=== PATIENT | female | born 1930 | race African-American/Black ===

== ENCOUNTER 2019-09-23 14:17 | Inpatient (IN) | payer MEDICARE, OTHER ==
[~2019-09-23] VITALS: Ht 154.9 cm; Wt 67.6 kg
--- NOTE | 2019-09-23 14:26 | Emergency Room Report ---
History of Present Illness General Chief Complaint: Dyspnea/Respdistress Source: Medical Record, EMS Present Illness HPI Disclaimer: Please note that this report is being documented using DRAGON technology. This can lead to erroneous entry secondary to incorrect interpretation by the dictating instrument. HPI: 89-year-old female history of dementia, schizophrenia, non-oxygen dependent COPD, anxiety disorder presents for evaluation of decreased oral intake and hypoxia. Patient was found saturating in the high 80%s this morning which improved after application of 2 L nasal cannula. She is currently denying cough but has significant dementia and is a poor historian overall. EMS also notes along with accompanying paperwork that the patient has not been eating or drinking much over the past 2 days. No reported fevers. She comes from a snf facility. Cannot obtain any other information from patient at this time. She is full code according to transfer paperwork. PMH: Anxiety disorder, schizophrenia, dementia, COPD PSH: Reviewed Allergies: None reported in paperwork Social Hx: None reported in paperwork Allergies: Coded Allergies: No Known Allergies (Unverified , 09/23/19) COVID-19 Screening Contact w/high risk pt: Yes Recent Travel to affected area: No Experienced COVID-19 symptoms?: Yes COVID-19 symptoms experienced: Shortness of Breath COVID-19 Testing performed COAT JOINER: No Review of Systems All Other Systems: limited - Dementia Physical Exam General: Awake, confused, somnolent but arousable, no acute distress HEENT: NC/AT. EOMI. Cardiovascular: RRR. S1 and S2 normal. No murmur appreciated Resp: Normal work of breathing. No cough, wheezing or crackles appreciated Abdomen: Abdomen is soft, nondistended. Nontender Skin: Intact. No abrasions, laceration or rash over the exposed skin MSK: Normal tone, decreased bulk diffusely. Moving all extremities. No obvious deformity. Neuro: Awake but somnolent, arousable to voice, confused conversation Medical Decision Making Diagnostic Impression: Primary Impression: Suspected 2019 novel coronavirus infection Additional Impression: Sepsis ER Course Labs show significant elevated white count at 22.8 with a neutrophil predominance and a lymphopenia. Blood gas does not show hypoxia or hypercapnia. Electrolytes within normal limits though creatinine acutely elevated 1.8 with a BUN of 93. Lactate within normal limits. Slight elevation in BN peptide however troponin is within normal limits. Urine does not show evidence of acute urinary tract infection. Patient be kept in isolation over concern of coronavirus 19. Chest x-ray does not show evidence of acute infiltrate. No further hypoxia while in the ED. patient was initially tachycardic though improving with IV fluids. Received antibiotics. Patient will be admitted to her PMD, Dr. Carrillo Laboratory Tests Test 09/23/19 15:00 09/23/19 15:10 09/23/19 15:15 White Blood Count 22.8 K/UL (4.8-10.8) *H Red Blood Count 3.79 M/UL (4.20-5.40) L Hemoglobin 11.0 G/DL (12.0-16.0) L Hematocrit 34.6 % (37.0-47.0) L Mean Corpuscular Volume 91 FL (80-99) Mean Corpuscular Hemoglobin 28.9 PG (27.0-31.0) Mean Corpuscular Hemoglobin Concent 31.7 G/DL (32.0-36.0) L Red Cell Distribution Width 14.8 % (11.6-14.8) Platelet Count 296 K/UL (150-450) Mean Platelet Volume 7.2 FL (6.5-10.1) Neutrophils (%) (Auto) % (45.0-75.0) Lymphocytes (%) (Auto) % (20.0-45.0) Monocytes (%) (Auto) % (1.0-10.0) Eosinophils (%) (Auto) % (0.0-3.0) Basophils (%) (Auto) % (0.0-2.0) Differential Total Cells Counted 100 Neutrophils % (Manual) 85 % (45-75) H Lymphocytes % (Manual) 4 % (20-45) L Monocytes % (Manual) 6 % (1-10) Eosinophils % (Manual) 1 % (0-3) Basophils % (Manual) 0 % (0-2) Band Neutrophils 4 % (0-8) Nucleated Red Blood Cells 1 /100 WBC Platelet Estimate Adequate Platelet Morphology Normal Anisocytosis 1+ Sodium Level 144 MMOL/L (136-145) Potassium Level 4.4 MMOL/L (3.5-5.1) Chloride Level 104 MMOL/L (98-107) Carbon Dioxide Level 30 MMOL/L (21-32) Anion Gap 11 mmol/L (5-15) Blood Urea Nitrogen 93 mg/dL (7-18) H Creatinine 1.8 MG/DL (0.55-1.30) H Estimated Glomerular Filtration Rate 32.2 mL/min (>60) Glucose Level 225 MG/DL (74-106) H Lactic Acid Level 1.40 mmol/L (0.4-2.0) Calcium Level 9.7 MG/DL (8.5-10.1) Phosphorus Level 4.0 MG/DL (2.5-4.9) Magnesium Level 2.7 MG/DL (1.8-2.4) H Total Bilirubin 0.2 MG/DL (0.2-1.0) Aspartate Amino Transferase (AST) 38 U/L (15-37) H Alanine Aminotransferase (ALT) 29 U/L (12-78) Alkaline Phosphatase 91 U/L (46-116) Total Creatine Kinase 630 U/L (26-308) H Creatine Kinase MB 3.1 NG/ML (0.0-3.6) Creatine Kinase MB Relative Index 0.4 Troponin I 0.009 ng/mL (0.000-0.056) Pro-B-Type Natriuretic Peptide 439 pg/mL (0-125) H Total Protein 8.3 G/DL (6.4-8.2) H Albumin 2.1 G/DL (3.4-5.0) L Globulin 6.2 g/dL Albumin/Globulin Ratio 0.3 (1.0-2.7) L Lipase 32 U/L (73-393) L Urine Color Yellow Urine Appearance Clear Urine pH 5 (4.5-8.0) Urine Specific [place] 1.015 (1.005-1.035) Urine Protein 1+ (NEGATIVE) H Urine Glucose (UA) Negative (NEGATIVE) Urine Ketones Negative (NEGATIVE) Urine Blood 1+ (NEGATIVE) H Urine Nitrite Negative (NEGATIVE) Urine Bilirubin Negative (NEGATIVE) Urine Urobilinogen Normal MG/DL (0.0-1.0) Urine Leukocyte Esterase Negative (NEGATIVE) Urine RBC 2-4 /HPF (0 - 2) H Urine WBC 0-2 /HPF (0 - 2) Urine Squamous Epithelial Cells Few /LPF (NONE/OCC) Urine Bacteria Few /HPF (NONE) Arterial Blood pH 7.475 (7.350-7.450) Arterial Blood Partial Pressure CO2 39.4 mmHg (35.0-45.0) Arterial Blood Partial Pressure O2 105.8 mmHg (75.0-100.0) H Arterial Blood HCO3 28.4 mmol/L (22.0-26.0) H Arterial Blood Oxygen Saturation 97.7 % (95-100) Arterial Blood Base Excess 4.5 (-2-2) H Teo Test Positive EKG Diagnostic Results EKG Time: 15:27 Rate: tachycardiac Other Impression Sinus tachycardia, normal axis, normal intervals, T wave inversions in the lateral leads, no acute ST segment changes. Rhythm Strip Diag. Results Rhythm Strip Time: 15:27 EP Interpretation: yes Rate: 110s Rhythm: no ectopy Chest X-Ray Diagnostic Results Chest X-Ray Diagnostic Results : Chest X-Ray Ordered: Yes # of Views/Limited/Complete: 1 View Indication: Chest Pain EP Interpretation: Yes Interpretation: no consolidation, no effusion, no pneumothorax, no acute cardiopulmonary disease Impression: No acute disease Electronically Signed by: Electronically signed by Dr. David He Disposition: ADMITTED INPATIENT Condition: Serious David He MD September 23, 2019 14:26
[2019-09-23 14:27] VITALS: BP 110/62
[2019-09-23] MEDS ORDERED: TRAZODONE HCL100 MG ORAL (14:32)
[2019-09-23] MEDS ORDERED: SYNTHROID25 MCG ORAL (14:32)
[2019-09-23] MEDS ORDERED: HYDROCHLOROTH12.5 MG ORAL (14:32)
[2019-09-23] MEDS ORDERED: SEROQUEL100 MG ORAL (14:32)
[2019-09-23] MEDS ORDERED: RISPERDAL1 MG PO ×2 (14:32→18:52)
[2019-09-23] MEDS ORDERED: DEPAKOTE SPRIN125 MG PO ×2 (14:32)
[2019-09-23] MEDS ORDERED: MULTIVITAMINS1 EAC2 ORAL (14:32)
[2019-09-23] MEDS ORDERED: VITAMIN D32400 UNIT/ PO (14:32)
[2019-09-23] MEDS ORDERED: MELATONIN3 M3 PO (14:32)
[2019-09-23 15:45] LABS: HEMATOCRIT 34.6 % (37.0-47.0); MEAN CORPUSCULAR VOLUME 91 FL (80-99); PLATELET COUNT 296 K/UL (150-450); RED BLOOD COUNT 3.79 M/UL (4.20-5.40); RED CELL DISTRIBUTION WIDTH 14.8 % (11.6-14.8)
[2019-09-23 15:47] LABS: APPEARANCE,URINE CLEAR; BILIRUBIN, URINE NEGATIVE (NEGATIVE); COLOR,URINE YELLOW; GLUCOSE, URINE (UA) NEGATIVE (NEGATIVE); KETONES,URINE NEGATIVE (NEGATIVE); LEUKOCYTE ESTERASE ,URINE NEGATIVE (NEGATIVE); NITRITE,URINE NEGATIVE (NEGATIVE); PH,URINE 5 (4.5-8.0); PROTEIN,URINE 1+ (NEGATIVE); UROBILINOGEN,URINE NORMAL MG/DL (0.0-1.0)
[2019-09-23 15:49] LABS: WHITE BLOOD COUNT 22.8 K/UL (4.8-10.8)
--- NOTE | 2019-09-23 15:56 | Diagnostic Imaging Report ---
Indication: Shortness of breath Technique: XRAY Chest 1v Comparison: None Findings: Heart size and mediastinal contours within normal limits for AP technique. Atherosclerotic calcifications noted in the aorta. Subtle generalized interstitial prominence is nonspecific and may be chronic. There is no focal airspace consolidation. No pleural effusion, pneumothorax or radiographic evidence of pulmonary edema. There is osteopenia, scoliosis and multilevel degenerative changes of the spine. No radiographically appreciable acute osseous abnormality. Impression: No radiographic evidence of acute cardiopulmonary disease.
[2019-09-23 16:00] VITALS: BP 133/86
[2019-09-23] MEDS ORDERED: Piperacillin/Tazobactam 3.375 GM in NS 110 ML IVPB ONE (16:00)
[2019-09-23] MEDS ORDERED: Vancomycin 1 GM in NS 275 ML IVPB ONE (16:00)
[2019-09-23 16:02] LABS: ANION GAP 11 mmol/L (5-15); BLOOD UREA NITROGEN 93 mg/dL (7-18); CALCIUM 9.7 MG/DL (8.5-10.1); CARBON DIOXIDE 30 MMOL/L (21-32); CHLORIDE 104 MMOL/L (98-107); CREATININE 1.8 MG/DL (0.55-1.30); POTASSIUM 4.4 MMOL/L (3.5-5.1); SODIUM 144 MMOL/L (136-145)
[2019-09-23 16:30] LABS: ALANINE AMINOTRANSFERASE 29 U/L (12-78); ALBUMIN 2.1 G/DL (3.4-5.0); ALBUMIN/GLOBULIN RATIO 0.3 (1.0-2.7); ALKALINE PHOSPHATASE 91 U/L (46-116); ASPARTATE AMINO TRANSFERASE 38 U/L (15-37); BILIRUBIN,TOTAL 0.2 MG/DL (0.2-1.0); CKMB 3.1 NG/ML (0.0-3.6); CREATINE KINASE 630 U/L (26-308)
[2019-09-23 17:30] VITALS: BP 108/69
[2019-09-23] MEDS ORDERED: MORPHINE 22 MG/1 ML SL (18:52)
[2019-09-23] MEDS ORDERED: COLACE100 MG ORAL (18:52)
[2019-09-23] MEDS ORDERED: ZOFRAN4 M3 ORAL (18:52)
[2019-09-23 20:00] VITALS: BP 113/59
[2019-09-24] VITALS: BP 141/80
--- NOTE | 2019-09-24 02:29 | History and Physical Report ---
DATE OF ADMISSION: 09/23/2019 HISTORY OF PRESENT ILLNESS: This is an 89-year-old female who was living at a senior living, came to the emergency room, was found hypoxic, short of breath, and generalized weakness, will be admitted. The patient was noted, her white counts are above 21,000, nonverbal, severely dehydrated and bedbound, although opening her eyes and critically sick. PAST MEDICAL HISTORY: Significant for dementia, depression, degenerative arthritis, and hypertension. MEDICATIONS: See the list. ALLERGIES: NKA. FAMILY HISTORY: Noncontributory. SOCIAL HISTORY: The patient lives at senior living, mostly bedbound. REVIEW OF SYSTEMS: Cannot be obtained. PHYSICAL EXAMINATION: GENERAL: This is an elderly female who is cachectic and dehydrated . VITAL SIGNS: Blood pressure is 106/70, pulse 100, respirations 18, and temperature 99. SKIN: Dehydrated. HEENT: eyes are open, looks pale. CHEST: Bilateral decreased breath sounds. CARDIOVASCULAR: Regular rhythm. No gallop. No murmur. ABDOMEN: Soft. Positive bowel sounds. Nontender. EXTREMITIES: Edema. GENITOURINARY: Deferred. LABORATORY DATA: White count 21,000. ASSESSMENT: 1. Septic shock. 2. Aspiration pneumonia. 3. Rule out COVID. 4. Dehydration. 5. Failure to thrive. 6. Dementia. PLAN: We will admit on telemetry bed. I will start IV fluids, IV antibiotics, bronchodilator treatment. Continue in isolation. Consider Pulmonary consult and also consider ID consult. Sher Carrillo M.D. DR: Matthew JOB#: [id number] CC:
[2019-09-24 04:00] VITALS: BP 138/88
[2019-09-24] MEDS: Piperacillin/Tazobactam 3.375 GM in NS 110 ML IVPB SCH ×2 (04:19→16:57)
[2019-09-24 08:00] VITALS: BP 135/75
[2019-09-24] MEDS ORDERED: Vancomycin 1.25gm/NS Premix q24h IVPB SCH (10:00)
[2019-09-24 12:00] VITALS: BP 129/65
--- NOTE | 2019-09-24 12:54 | Consultation ---
History of Present Illness General Date patient seen: September 24, 2019 Chief Complaint: Dyspnea/Respdistress Present Illness HPI 89-year-old female history of dementia, schizophrenia, non-oxygen dependent COPD , anxiety disorder presents for evaluation of decreased oral intake and hypoxia. Patient was found saturating in the high 80%s this morning which improved after application of 2 L nasal cannula. She is currently denying cough but has significant dementia and is a poor historian overall. EMS also notes along with accompanying paperwork that the patient has not been eating or drinking much over the past 2 days. No reported fevers. She comes from a snf facility. Cannot obtain any other information from patient at this time. She is full code according to transfer paperwork. Noted to have malnutrition, leukocytosis, abnormal labs, decubitus ulcers. surgery called to evaluate and assist with care. PMH: Anxiety disorder, schizophrenia, dementia, COPD Allergies: Coded Allergies: No Known Allergies (Unverified , 09/23/19) Medication History Scheduled Cholecalciferol (Vitamin D3) (Vitamin D3), 1,000 UNIT PO DAILY, (Reported) Divalproex Sodium (Depakote Sprinkle), 250 MG PO DAILY, (Reported) Divalproex Sodium (Depakote Sprinkle), 500 MG PO BEDTIME, (Reported) Docusate Sodium* (Colace*), 250 MG ORAL TWICE A DAY, (Reported) Hydrochlorothiazide* (Hydrochlorothiazide*), 12.5 MG ORAL DAILY, (Reported) Levothyroxine Sodium* (Synthroid*), 25 MCG ORAL DAILY, (Reported) Melatonin (Melatonin), 12 MG PO BEDTIME, (Reported) Multivitamins* (Multivitamins*), 1 TAB ORAL DAILY, (Reported) Quetiapine Fumarate* (Seroquel*), 100 MG ORAL BEDTIME, (Reported) Risperidone* (Risperdal*), 1 MG PO DAILY, (Reported) Risperidone* (Risperdal*), 1 MG PO BEDTIME, (Reported) Trazodone Hcl* (Desyrel*), 100 MG ORAL BEDTIME, (Reported) Scheduled PRN Morphine Sulfate* (Morphine Sulfate*), 1 MG SL Q4HR PRN for Severe Pain (Pain Scale 7-10), (Reported) Ondansetron* (Zofran*), 4 MG ORAL Q8HR PRN for Nausea & Vomiting, (Reported) Patient History Limited by: age, medical condition History Provided By: Medical Record, PMD Healthcare decision maker N Resuscitation status Advanced Directive on File Past Medical/Surgical History Past Medical/Surgical History: (1) Respiratory distress (2) Failure to thrive (3) Sepsis (4) Suspected 2019 novel coronavirus infection Review of Systems All Other Systems: negative except mentioned in HPI ROS Narrative cannot obtain given medical condition Physical Exam General Appearance: no apparent distress, alert Lines, tubes and drains: peripheral HEENT: anicteric, mucous membranes moist Neck: normal alignment, supple Respiratory/Chest: no respiratory distress, no accessory muscle use, decreased breath sounds Cardiovascular/Chest: normal peripheral pulses, normal rate, regular rhythm Abdomen: soft, no organomegaly, no mass, decreased bowel sounds Genitourinary/Rectal: normal rectal exam Extremities: normal range of motion, non-tender, normal inspection Skin Exam: warm/dry Neurologic: alert, disoriented Last 24 Hour Vital Signs Date Time Temp Pulse Resp B/P (MAP) Pulse Ox O2 Delivery O2 Flow Rate FiO2 09/24/19 12:00 97.3 80 16 129/65 (86) 98 80 09/24/19 09:00 Nasal Cannula 2.0 09/24/19 08:00 89 09/24/19 08:00 96.9 99 16 135/75 (95) 94 99 09/24/19 04:00 97 09/24/19 04:00 94 138/88 (105) 97 09/24/19 00:00 97.3 110 141/80 (100) 100 09/24/19 00:00 95 09/23/19 21:00 Nasal Cannula 2.0 09/23/19 20:00 94 09/23/19 20:00 97.5 104 113/59 (77) 92 09/23/19 18:53 Nasal Cannula 2.0 09/23/19 17:30 98.5 73 19 108/69 99 Nasal Cannula 2.0 09/23/19 17:30 98.5 73 19 108/69 99 Nasal Cannula 2.0 09/23/19 16:00 97.9 97 19 133/86 100 Nasal Cannula 2.0 09/23/19 14:27 106 22 Nasal Cannula 2.0 09/23/19 14:27 97.9 106 22 110/62 99 Nasal Cannula 2.0 09/23/19 14:16 97.9 106 22 110/62 (78) 99 Nasal Cannula 2.0 Intake and Output 09/23/19 09/24/19 19:00 07:00 Intake Total 2770 ml Balance 2770 ml Intake IV Total 2770 ml # Voids 1 3 # Bowel Movements 1 2 Laboratory Tests Test 09/23/19 15:00 09/23/19 15:10 09/23/19 15:15 09/24/19 07:04 White Blood Count 22.8 K/UL (4.8-10.8) *H Red Blood Count 3.79 M/UL (4.20-5.40) L Hemoglobin 11.0 G/DL (12.0-16.0) L Hematocrit 34.6 % (37.0-47.0) L Mean Corpuscular Volume 91 FL (80-99) Mean Corpuscular Hemoglobin 28.9 PG (27.0-31.0) Mean Corpuscular Hemoglobin Concent 31.7 G/DL (32.0-36.0) L Red Cell Distribution Width 14.8 % (11.6-14.8) Platelet Count 296 K/UL (150-450) Mean Platelet Volume 7.2 FL (6.5-10.1) Neutrophils (%) (Auto) % (45.0-75.0) Lymphocytes (%) (Auto) % (20.0-45.0) Monocytes (%) (Auto) % (1.0-10.0) Eosinophils (%) (Auto) % (0.0-3.0) Basophils (%) (Auto) % (0.0-2.0) Differential Total Cells Counted 100 Neutrophils % (Manual) 85 % (45-75) H Lymphocytes % (Manual) 4 % (20-45) L Monocytes % (Manual) 6 % (1-10) Eosinophils % (Manual) 1 % (0-3) Basophils % (Manual) 0 % (0-2) Band Neutrophils 4 % (0-8) Nucleated Red Blood Cells 1 /100 WBC Platelet Estimate Adequate Platelet Morphology Normal Anisocytosis 1+ Sodium Level 144 MMOL/L (136-145) Potassium Level 4.4 MMOL/L (3.5-5.1) Chloride Level 104 MMOL/L (98-107) Carbon Dioxide Level 30 MMOL/L (21-32) Anion Gap 11 mmol/L (5-15) Blood Urea Nitrogen 93 mg/dL (7-18) H Creatinine 1.8 MG/DL (0.55-1.30) H Estimat Glomerular Filtration Rate 32.2 mL/min (>60) Glucose Level 225 MG/DL (74-106) H Lactic Acid Level 1.40 mmol/L (0.4-2.0) Calcium Level 9.7 MG/DL (8.5-10.1) Phosphorus Level 4.0 MG/DL (2.5-4.9) Magnesium Level 2.7 MG/DL (1.8-2.4) H Total Bilirubin 0.2 MG/DL (0.2-1.0) Aspartate Amino Transf (AST/SGOT) 38 U/L (15-37) H Alanine Aminotransferase (ALT/SGPT) 29 U/L (12-78) Alkaline Phosphatase 91 U/L (46-116) Total Creatine Kinase 630 U/L (26-308) H Creatine Kinase MB 3.1 NG/ML (0.0-3.6) Creatine Kinase MB Relative Index 0.4 Troponin I 0.009 ng/mL (0.000-0.056) Pro-B-Type Natriuretic Peptide 439 pg/mL (0-125) H Total Protein 8.3 G/DL (6.4-8.2) H Albumin 2.1 G/DL (3.4-5.0) L Globulin 6.2 g/dL Albumin/Globulin Ratio 0.3 (1.0-2.7) L Lipase 32 U/L (73-393) L Urine Color Yellow Urine Appearance Clear Urine pH 5 (4.5-8.0) Urine Specific [place] 1.015 (1.005-1.035) Urine Protein 1+ (NEGATIVE) H Urine Glucose (UA) Negative (NEGATIVE) Urine Ketones Negative (NEGATIVE) Urine Blood 1+ (NEGATIVE) H Urine Nitrite Negative (NEGATIVE) Urine Bilirubin Negative (NEGATIVE) Urine Urobilinogen Normal MG/DL (0.0-1.0) Urine Leukocyte Esterase Negative (NEGATIVE) Urine RBC 2-4 /HPF (0 - 2) H Urine WBC 0-2 /HPF (0 - 2) Urine Squamous Epithelial Cells Few /LPF (NONE/OCC) Urine Bacteria Few /HPF (NONE) Arterial Blood pH 7.475 (7.350-7.450) Arterial Blood Partial Pressure CO2 39.4 mmHg (35.0-45.0) Arterial Blood Partial Pressure O2 105.8 mmHg (75.0-100.0) H Arterial Blood HCO3 28.4 mmol/L (22.0-26.0) H Arterial Blood Oxygen Saturation 97.7 % (95-100) Arterial Blood Base Excess 4.5 (-2-2) H Teo Test Positive Random Vancomycin Level 7.1 ug/mL Microbiology Date/Time Source Procedure Growth Status 09/23/19 18:00 Rectum Received Height (Feet): 5 Height (Inches): 2.00 Weight (Pounds): 120 Medications Current Medications Medications (Trade) Dose Ordered Sig/Naya Route PRN Reason Start Time Stop Time Status Last Admin Dose Admin Piperacillin Sod/ Tazobactam Sod 3.375 gm/Sodium Chloride 110 ml @ 27.5 mls/hr Q12H IVPB 09/24/19 04:00 10/01/19 03:59 09/24/19 04:19 Sodium Chloride 1,000 ml @ 100 mls/hr Q10H IV 09/23/19 21:00 09/25/19 09:00 09/24/19 06:21 Assessment/Plan Problem List: (1) Decubitus skin ulcer ICD Codes: L89.90 - Pressure ulcer of unspecified site, unspecified stage SNOMED: 034034595 (2) Sepsis Assessment & Plan: leukocytosis, abnormal labs low grade fever COVID eval necessary snf patient respiratory support nutrition Urine with UTI pending micro wounds no gross infection rx as written on abx trend labs will follow with recs ICD Codes: A41.9 - Sepsis, unspecified organism SNOMED: 05138443 (3) Suspected 2019 novel coronavirus infection ICD Codes: Z20.828 - Contact with and (suspected) exposure to other viral communicable diseases SNOMED: 656397754 (4) Respiratory distress ICD Codes: R06.03 - Acute respiratory distress SNOMED: 558227442 (5) Failure to thrive Assessment & Plan: DAILY ESTIMATED NEEDS: Needs based on Sepsis 54.5kg 25-35 kcals/kg 9368-8965 total kcals 1-2 g protein/kg 55-109 g total protein 25-30ml/kcal mL/kg 3241-8563 total fluid mLs NUTRITION DIAGNOSIS: Increased kcal and pro needs r/t sepsis and wound healing as evidenced by pt adm w/ critically elev WBC, open sacral/ buttock wound, eval pending. CURRENT DIET: NPO PO DIET RECOMMENDATIONS: Liberalized Regular diet/ texture per SHELTER SUPERVISOR ENTERAL NUTRITION RECOMMENDATIONS: Glucerna 1.5 @40ml/hr x24 hrs to provide 960ml, 1440 kcal, 79g pro, 729ml free H2O - If part of POC, rec to obtain GI access, initiate non oral TFs. - Start Glucerna 1.5 @10ml/hr for 6hrs. Advance as tolerated 10ml/hr q4-6 hrs to goal. - Flush per MD/ HOB over 30 degreed ADDITIONAL RECOMMENDATIONS: 1) With diet order: add BEAN BID. F/up with WC eval 2) Maintain calibrated bed scale wts 3) SHELTER SUPERVISOR eval for oral diet 4) monitor hydration status 5) Glucerna TID w/ meals for oral diet SNOMED: 00787926 Sundeep Howard September 24, 2019 12:54
[2019-09-24] MEDS ORDERED: DiphenhydrAMINE 50mg/ml Inj IVP PRN (13:00)
[2019-09-24 16:00] VITALS: BP 134/68
--- NOTE | 2019-09-24 17:02 | Diagnostic Imaging Report ---
EXAM: XRAY Abdomen 1v HISTORY: Reason For Exam: NGT COMPARISON: None. TECHNIQUE: Frontal view of the abdomen obtained. FINDINGS: There is a nonobstructed bowel gas pattern. There is an NG tube in the stomach. Calcific densities in the left upper quadrant may be related to old pancreatitis. There is no sign of free air. No acute abnormality noted of the visualized osseous structures. IMPRESSION: NG TUBE IN STOMACH. CALCIFICATIONS LEFT UPPER QUADRANT PERHAPS RELATED TO OLD PANCREATITIS.
--- NOTE | 2019-09-24 17:30 | Consultation ---
DATE OF CONSULTATION: 09/24/2019 INFECTIOUS DISEASES CONSULTATION CONSULTING PHYSICIAN: Mazin Skinner MD. REFERRING PHYSICIAN: Russ Carrillo MD. REASON FOR CONSULTATION: Leukocytosis. HISTORY OF PRESENTING ILLNESS: This is an 89-year-old lady with history of dementia, depression, hypertension, arthritis, who comes in from the emergency room with shortness of breath and weakness. She was found to be dehydrated and with leukocytosis and an Infectious Diseases consultation has been obtained for antibiotics. PAST MEDICAL HISTORY: 1. History of dementia. 2. Depression. 3. Hypertension. 4. DJD. SOCIAL HISTORY: Unknown. FAMILY HISTORY: Unknown. REVIEW OF SYSTEMS: Unable to obtain currently. MEDICATIONS: As an inpatient, the patient is on IV vancomycin and Zosyn. ALLERGIES: No known drug allergies. PHYSICAL EXAMINATION: VITAL SIGNS: Temperature of 96.9, T-max of 98.5, pulse of 99, respiratory rate of 16, blood pressure 135/75, O2 saturation of 94% on 2 liters of oxygen. Examination deferred due to possibility of COVID-19 LABORATORY AND DIAGNOSTIC DATA: White count 22.8, hemoglobin 11, hematocrit 34.6, MCV 91, platelet count of 296, neutrophils of 85%. Sodium 144, potassium 4.4, chloride 104, bicarb 30, BUN 93, creatinine 1.8, glucose 225, calcium 9.7. Total bilirubin 0.2. AST 38, ALT 29, alkaline phosphatase 91. CK of 630, CK-MB 3.1. Troponin 0.009. Beta natriuretic peptide 439. Total protein 8.3, albumin 2.1. Lipase of 32. UA showing 0 to 2 white cells. Chest x-ray was unremarkable. ASSESSMENT: This is an 89-year-old lady with history of hypertension, dementia, depression, who comes in with shortness of breath and was found to have leukocytosis would be concerned regardin. Pneumonia, would like to rule out COVID-19 pneumonia as a possibility. 2. Hypertension. 3. Dementia. 4. Renal failure. PLAN: 1. Continue Zosyn. 2. Discontinue IV vancomycin. 3. We will follow up cultures and adjust antibiotics accordingly. 4. Continue isolation. 5. We will follow up COVID-19. I would like to thank, Dr. Carrillo for this consultation. Mazin Skinner M.D. DR: JULIAN JOB#: [id number] CC: Russ Carrillo MD.; Fax#: [phone]
[2019-09-24 20:00] VITALS: BP 140/97
[2019-09-25] VITALS: BP 135/95
--- NOTE | 2019-09-25 | Consultation ---
DATE OF CONSULTATION: 09/24/2019 PULMONARY CONSULTATION CONSULTING PHYSICIAN: David Villanueva M.D. HISTORY OF PRESENT ILLNESS: This is an 89-year-old female with a history of schizophrenia and COPD, who was admitted to the hospital with hypoxemia. Patient has a history of severe COPD; however, is not oxygen dependent. She was found to be hypoxic and was given oxygen. Patient unable to provide any further history. She is a resident of a nursing facility and she is brought in with anorexia. PAST MEDICAL HISTORY: Anxiety, schizophrenia, dementia, COPD. SURGERIES: None. ALLERGIES: None reported. CODE STATUS: Full. SOCIAL HISTORY: assisted resident. MEDICATIONS: List of current medications includes Zosyn, IV fluids, and vancomycin. REVIEW OF SYSTEMS: Unreliable. PHYSICAL EXAMINATION: GENERAL: Reveals an elderly female. HEENT: Unremarkable. CHEST: Decreased breath sounds bilaterally with normal heart sounds. ABDOMEN: Soft. EXTREMITIES: There is no edema. VITAL SIGNS: Blood pressure is 120/60, heart rate 58, respirations 20, O2 saturation is 98% on 2 L of oxygen. X-ray chest obtained overnight shows clear lung campos bilaterally. LABORATORY DATA: Lab testing shows white count 22.8, otherwise normal CBC and BMP. Creatinine 1.8. ABG, pH 7.47, pCO2 39, pO2 105. Urinalysis shows few pus cells. IMPRESSION: 1. Marked leukocytosis. 2. Hypoxemia. 3. COPD. 4. assisted resident. 5. Schizophrenia. 6. Dementia. DISCUSSION: Admit to the hospital. Agree with empiric antibiotics. Do not suspect COVID-19; however, need to exclude. Continue current medications and care. We will follow carefully as pulmonary clinical services consultant. We will order oxygen and pulmonary hygiene. David Villanueva M.D. DR: MCKENNA JOB#: [id number] CC:
[2019-09-25] MEDS: Piperacillin/Tazobactam 3.375 GM in NS 110 ML IVPB SCH ×3 (03:02→21:29)
[2019-09-25 04:00] VITALS: BP 140/92
[2019-09-25 06:57] LABS: HEMATOCRIT 33.3 % (37.0-47.0); HEMOGLOBIN 10.6 G/DL (12.0-16.0); MEAN CORPUSCULAR VOLUME 88 FL (80-99); PLATELET COUNT 317 K/UL (150-450); RED BLOOD COUNT 3.78 M/UL (4.20-5.40); RED CELL DISTRIBUTION WIDTH 13.6 % (11.6-14.8); WHITE BLOOD COUNT 14.5 K/UL (4.8-10.8)
[2019-09-25 07:38] LABS: ALANINE AMINOTRANSFERASE 44 U/L (12-78); ALBUMIN 1.9 G/DL (3.4-5.0); ALBUMIN/GLOBULIN RATIO 0.3 (1.0-2.7); ALKALINE PHOSPHATASE 85 U/L (46-116); ANION GAP 7 mmol/L (5-15); ASPARTATE AMINO TRANSFERASE 65 U/L (15-37); BILIRUBIN,TOTAL 0.2 MG/DL (0.2-1.0); BLOOD UREA NITROGEN 51 mg/dL (7-18); CALCIUM 9.1 MG/DL (8.5-10.1); CARBON DIOXIDE 30 MMOL/L (21-32); CHLORIDE 116 MMOL/L (98-107); POTASSIUM 3.6 MMOL/L (3.5-5.1); SODIUM 153 MMOL/L (136-145)
[2019-09-25 08:00] VITALS: BP 131/85
--- NOTE | 2019-09-25 10:20 | Infectious Diseases Prog Note ---
Assessment/Plan Assessment/Plan antibiotics ; zosyn A 1. Pneumonia, would like to rule out COVID-19 pneumonia as a possibility. 2. Hypertension. 3. Dementia. 4. Renal failure improving 5. leucocytosis improving P 1. Continue Zosyn. 2. We will follow up cultures and adjust antibiotics accordingly. 3. Continue isolation. 4. We will follow up COVID-19. Subjective ROS Limited/Unobtainable: Yes Allergies: Coded Allergies: No Known Allergies (Unverified , 09/23/19) Objective Vital Signs Last 24 Hour Vital Signs Date Time Temp Pulse Resp B/P (MAP) Pulse Ox O2 Delivery O2 Flow Rate FiO2 09/25/19 09:00 Nasal Cannula 2.0 09/25/19 08:00 86 09/25/19 08:00 97.9 100 16 131/85 (100) 98 100 09/25/19 04:00 92 09/25/19 04:00 97.7 100 17 140/92 (108) 99 100 09/25/19 00:00 97.4 102 17 135/95 (108) 100 102 09/25/19 00:00 51 09/24/19 21:00 Nasal Cannula 2.0 09/24/19 20:00 97.4 102 16 140/97 (111) 98 102 09/24/19 20:00 69 09/24/19 16:00 85 09/24/19 16:00 96.6 86 18 134/68 (90) 100 86 09/24/19 12:00 54 09/24/19 12:00 97.3 80 16 129/65 (86) 98 80 Height (Feet): 5 Height (Inches): 2.00 Weight (Pounds): 124 Microbiology Date/Time Source Procedure Growth Status 09/23/19 15:00 Blood Blood Culture - Preliminary NO GROWTH AFTER 24 HOURS Resulted 09/23/19 14:30 Blood Blood Culture - Preliminary NO GROWTH AFTER 24 HOURS Resulted 09/23/19 18:00 Nasal Nares MRSA Culture - Final NO METHICILLIN RESISTANT STAPH AUREUS... Complete 09/23/19 15:00 Nasopharynx Coronavirus COVID-19 PCR ([facility]) - Final Complete 09/23/19 18:00 Rectum - Final NO CARBAPENEM-RESISTANT ENTEROBACTERI... Complete 09/23/19 18:00 Rectum VRE Culture - Final NO VANCOMYCIN RESISTANT ENTEROCOCCUS ... Complete Laboratory Tests Test 09/25/19 06:23 White Blood Count 14.5 K/UL (4.8-10.8) H Red Blood Count 3.78 M/UL (4.20-5.40) L Hemoglobin 10.6 G/DL (12.0-16.0) L Hematocrit 33.3 % (37.0-47.0) L Mean Corpuscular Volume 88 FL (80-99) Mean Corpuscular Hemoglobin 28.2 PG (27.0-31.0) Mean Corpuscular Hemoglobin Concent 32.0 G/DL (32.0-36.0) Red Cell Distribution Width 13.6 % (11.6-14.8) Platelet Count 317 K/UL (150-450) Mean Platelet Volume 5.7 FL (6.5-10.1) L Neutrophils (%) (Auto) % (45.0-75.0) Lymphocytes (%) (Auto) % (20.0-45.0) Monocytes (%) (Auto) % (1.0-10.0) Eosinophils (%) (Auto) % (0.0-3.0) Basophils (%) (Auto) % (0.0-2.0) Differential Total Cells Counted 100 Neutrophils % (Manual) 88 % (45-75) H Lymphocytes % (Manual) 7 % (20-45) L Monocytes % (Manual) 3 % (1-10) Eosinophils % (Manual) 2 % (0-3) Basophils % (Manual) 0 % (0-2) Band Neutrophils 0 % (0-8) Platelet Estimate Adequate Platelet Morphology Normal Hypochromasia 1+ Erythrocyte Sedimentation Rate 83 MM/HR (0-30) H Sodium Level 153 MMOL/L (136-145) H Potassium Level 3.6 MMOL/L (3.5-5.1) Chloride Level 116 MMOL/L (98-107) H Carbon Dioxide Level 30 MMOL/L (21-32) Anion Gap 7 mmol/L (5-15) Blood Urea Nitrogen 51 mg/dL (7-18) H Creatinine 1.0 MG/DL (0.55-1.30) Estimat Glomerular Filtration Rate > 60 mL/min (>60) Glucose Level 139 MG/DL (74-106) H Calcium Level 9.1 MG/DL (8.5-10.1) Total Bilirubin 0.2 MG/DL (0.2-1.0) Aspartate Amino Transf (AST/SGOT) 65 U/L (15-37) H Alanine Aminotransferase (ALT/SGPT) 44 U/L (12-78) Alkaline Phosphatase 85 U/L (46-116) C-Reactive Protein, Quantitative 31.8 mg/dL (0.00-0.90) H Total Protein 7.6 G/DL (6.4-8.2) Albumin 1.9 G/DL (3.4-5.0) L Globulin 5.7 g/dL Albumin/Globulin Ratio 0.3 (1.0-2.7) L Current Medications Medications (Trade) Dose Ordered Sig/Naya Route PRN Reason Start Time Stop Time Status Last Admin Dose Admin Acetaminophen (Tylenol) 650 mg Q6H PRN ORAL For Headache 09/24/19 13:00 10/24/19 12:59 Diphenhydramine HCl (Benadryl) 50 mg Q6H PRN IVP Itching 09/24/19 13:00 10/24/19 12:59 Ondansetron HCl (Zofran) 4 mg Q6H PRN IVP Nausea & Vomiting 09/24/19 13:00 10/24/19 12:59 Piperacillin Sod/ Tazobactam Sod 3.375 gm/Sodium Chloride 110 ml @ 27.5 mls/hr Q12H IVPB 09/24/19 04:00 10/01/19 03:59 09/25/19 03:02 Mazin Skinner MD September 25, 2019 10:20
[2019-09-25 12:00] VITALS: BP 159/96
--- NOTE | 2019-09-25 12:29 | Pulmonology Progress Note ---
Subjective ROS Limited/Unobtainable: Yes Interval Events: None new Constitutional: Reports: no symptoms HEENT: Repors: no symptoms Respiratory: Reports: no symptoms Cardiovascular: Reports: no symptoms Gastrointestinal/Abdominal: Reports: no symptoms Genitourinary: Reports: no symptoms Neurologic: Reports: no symptoms Allergies: Coded Allergies: No Known Allergies (Unverified , 09/23/19) Objective Last 24 Hour Vital Signs Date Time Temp Pulse Resp B/P (MAP) Pulse Ox O2 Delivery O2 Flow Rate FiO2 09/25/19 12:00 98.2 111 20 159/96 (117) 99 111 09/25/19 09:00 Nasal Cannula 2.0 09/25/19 08:00 86 09/25/19 08:00 97.9 100 16 131/85 (100) 98 100 09/25/19 04:00 92 09/25/19 04:00 97.7 100 17 140/92 (108) 99 100 09/25/19 00:00 97.4 102 17 135/95 (108) 100 102 09/25/19 00:00 51 09/24/19 21:00 Nasal Cannula 2.0 09/24/19 20:00 97.4 102 16 140/97 (111) 98 102 09/24/19 20:00 69 09/24/19 16:00 85 09/24/19 16:00 96.6 86 18 134/68 (90) 100 86 Intake and Output 09/24/19 09/25/19 19:00 07:00 Output Total 1 ml 300 ml Balance -1 ml -300 ml Output Urine Total 1 ml 300 ml # Voids 2 1 General Appearance: no acute distress HEENT: normocephalic Respiratory: chest wall non-tender, lungs clear Cardiovascular: normal peripheral pulses Abdomen: normal bowel sounds Microbiology Date/Time Source Procedure Growth Status 09/23/19 15:00 Blood Blood Culture - Preliminary NO GROWTH AFTER 24 HOURS Resulted 09/23/19 14:30 Blood Blood Culture - Preliminary NO GROWTH AFTER 24 HOURS Resulted 09/23/19 18:00 Nasal Nares MRSA Culture - Final NO METHICILLIN RESISTANT STAPH AUREUS... Complete 09/23/19 15:00 Nasopharynx Coronavirus COVID-19 PCR ([facility]) - Final Complete 09/23/19 18:00 Rectum - Final NO CARBAPENEM-RESISTANT ENTEROBACTERI... Complete 09/23/19 18:00 Rectum VRE Culture - Final NO VANCOMYCIN RESISTANT ENTEROCOCCUS ... Complete Laboratory Tests 09/25/19 06:23: White Blood Count 14.5H, Red Blood Count 3.78L, Hemoglobin 10.6L, Hematocrit 33.3L, Mean Corpuscular Volume 88, Mean Corpuscular Hemoglobin 28.2, Mean Corpuscular Hemoglobin Concent 32.0, Red Cell Distribution Width 13.6, Platelet Count 317, Mean Platelet Volume 5.7L, Neutrophils (%) (Auto) , Lymphocytes (%) ( Auto) , Monocytes (%) (Auto) , Eosinophils (%) (Auto) , Basophils (%) (Auto) , Differential Total Cells Counted 100, Neutrophils % (Manual) 88H, Lymphocytes % (Manual) 7L, Monocytes % (Manual) 3, Eosinophils % (Manual) 2, Basophils % ( Manual) 0, Band Neutrophils 0, Platelet Estimate Adequate, Platelet Morphology Normal, Hypochromasia 1+, Erythrocyte Sedimentation Rate 83H, Sodium Level 153H , Potassium Level 3.6, Chloride Level 116H, Carbon Dioxide Level 30, Anion Gap 7 , Blood Urea Nitrogen 51H, Creatinine 1.0, Estimat Glomerular Filtration Rate > 60, Glucose Level 139H, Calcium Level 9.1, Total Bilirubin 0.2, Aspartate Amino Transf (AST/SGOT) 65H, Alanine Aminotransferase (ALT/SGPT) 44, Alkaline Phosphatase 85, C-Reactive Protein, Quantitative 31.8H, Total Protein 7.6, Albumin 1.9L, Globulin 5.7, Albumin/Globulin Ratio 0.3L Current Medications Medications (Trade) Dose Ordered Sig/Naya Route PRN Reason Start Time Stop Time Status Last Admin Dose Admin Acetaminophen (Tylenol) 650 mg Q6H PRN ORAL For Headache 09/24/19 13:00 10/24/19 12:59 Diphenhydramine HCl (Benadryl) 50 mg Q6H PRN IVP Itching 09/24/19 13:00 10/24/19 12:59 Ondansetron HCl (Zofran) 4 mg Q6H PRN IVP Nausea & Vomiting 09/24/19 13:00 10/24/19 12:59 Piperacillin Sod/ Tazobactam Sod 3.375 gm/Sodium Chloride 110 ml @ 27.5 mls/hr Q12H IVPB 09/24/19 04:00 10/01/19 03:59 09/25/19 03:02 Assessment/Plan Assessment/Plan IMPRESSION: 1. Marked leukocytosis. 2. Hypoxemia. 3. COPD. 4. jail resident. 5. Schizophrenia. 6. Dementia. DISCUSSION: Agree with empiric antibiotics. Do not suspect COVID-19; however, need to exclude. Continue current medications and care. I will follow carefully as pulmonary change consultant. Currently saturating well on low flow O2 David Villanueva M.D. David Villanueva MD September 25, 2019 12:29
--- NOTE | 2019-09-25 13:59 | Surgery Progress Note ---
Surgery Progress Note Subjective Additional Comments leukocytosis improved h/h stable dressings intact and change going well comfortable appearing. tube feeds going okay Objective Last 24 Hour Vital Signs Date Time Temp Pulse Resp B/P (MAP) Pulse Ox O2 Delivery O2 Flow Rate FiO2 09/25/19 12:00 96 09/25/19 12:00 98.2 111 20 159/96 (117) 99 111 09/25/19 09:00 Nasal Cannula 2.0 09/25/19 08:00 86 09/25/19 08:00 97.9 100 16 131/85 (100) 98 100 09/25/19 04:00 92 09/25/19 04:00 97.7 100 17 140/92 (108) 99 100 09/25/19 00:00 97.4 102 17 135/95 (108) 100 102 09/25/19 00:00 51 09/24/19 21:00 Nasal Cannula 2.0 09/24/19 20:00 97.4 102 16 140/97 (111) 98 102 09/24/19 20:00 69 09/24/19 16:00 85 09/24/19 16:00 96.6 86 18 134/68 (90) 100 86 I&O Intake and Output 09/24/19 09/25/19 19:00 07:00 Output Total 1 ml 300 ml Balance -1 ml -300 ml Output Urine Total 1 ml 300 ml # Voids 2 1 Dressing: dry Wound: clean Cardiovascular: RSR Respiratory: clear Abdomen: soft, non-tender, present bowel sounds Extremities: no tenderness, no cyanosis Laboratory Tests Test 09/25/19 06:23 White Blood Count 14.5 K/UL (4.8-10.8) H Red Blood Count 3.78 M/UL (4.20-5.40) L Hemoglobin 10.6 G/DL (12.0-16.0) L Hematocrit 33.3 % (37.0-47.0) L Mean Corpuscular Volume 88 FL (80-99) Mean Corpuscular Hemoglobin 28.2 PG (27.0-31.0) Mean Corpuscular Hemoglobin Concent 32.0 G/DL (32.0-36.0) Red Cell Distribution Width 13.6 % (11.6-14.8) Platelet Count 317 K/UL (150-450) Mean Platelet Volume 5.7 FL (6.5-10.1) L Neutrophils (%) (Auto) % (45.0-75.0) Lymphocytes (%) (Auto) % (20.0-45.0) Monocytes (%) (Auto) % (1.0-10.0) Eosinophils (%) (Auto) % (0.0-3.0) Basophils (%) (Auto) % (0.0-2.0) Differential Total Cells Counted 100 Neutrophils % (Manual) 88 % (45-75) H Lymphocytes % (Manual) 7 % (20-45) L Monocytes % (Manual) 3 % (1-10) Eosinophils % (Manual) 2 % (0-3) Basophils % (Manual) 0 % (0-2) Band Neutrophils 0 % (0-8) Platelet Estimate Adequate Platelet Morphology Normal Hypochromasia 1+ Erythrocyte Sedimentation Rate 83 MM/HR (0-30) H Sodium Level 153 MMOL/L (136-145) H Potassium Level 3.6 MMOL/L (3.5-5.1) Chloride Level 116 MMOL/L (98-107) H Carbon Dioxide Level 30 MMOL/L (21-32) Anion Gap 7 mmol/L (5-15) Blood Urea Nitrogen 51 mg/dL (7-18) H Creatinine 1.0 MG/DL (0.55-1.30) Estimat Glomerular Filtration Rate > 60 mL/min (>60) Glucose Level 139 MG/DL (74-106) H Calcium Level 9.1 MG/DL (8.5-10.1) Total Bilirubin 0.2 MG/DL (0.2-1.0) Aspartate Amino Transf (AST/SGOT) 65 U/L (15-37) H Alanine Aminotransferase (ALT/SGPT) 44 U/L (12-78) Alkaline Phosphatase 85 U/L (46-116) C-Reactive Protein, Quantitative 31.8 mg/dL (0.00-0.90) H Total Protein 7.6 G/DL (6.4-8.2) Albumin 1.9 G/DL (3.4-5.0) L Globulin 5.7 g/dL Albumin/Globulin Ratio 0.3 (1.0-2.7) L Plan Problems: (1) Decubitus skin ulcer Assessment & Plan: Pt presented on admission with Multiple Pressure injuries. Unstageable Sacral Pressure injury(L)9.5cm x (W)11cm. Base of wound is 75% necrotic 25% mixed slough and erythema. Periwound is indurated with non- blanchable erythema. No odor or exudate noted. Additional open wound in close proximity noted to lower R cleft of buttocks. DTPI Noted to R heel and lateral R heel. Base of wound is fluctuant, purple with maroon borders.(L)7.5cm x (W)11cm.Periwound is blanchable but boggy. DTPI L heel and Lateral aspect. Base of wound is maroon and fluctuant. (L)6.5cm x (W)9.5cm. Periwound is blanchable but boggy. DTPI L 1st Metatarsal Head. Base of wound is fluctuant,purple with surrounding maroon borders.(L)2.5cm x (W)1.5cm. Non-blanching erythema without fluctuance noted to R 1st metatarsal head. Tx.Plan: Cleanse Sacral wound with Saline. Apply Therahoney impregnated Kerlix. Apply Moisture Barrier Paste periwound. Cover with Optifoam drsg. Daily and prn. Apply Cavilon Skin Barrier to R and L Heels. Cover each heel with Optifoam drsg.Change every 7 days and prn. Apply Cavilon Skin Barrier to R and L 1st Metatarsals Daily and prn. Reposition at least every 2hoours or as tolerated. Place Pillow between Knees. Off-load heels with Pillow. APM/KEYONA Mattress overlay. (2) Sepsis Assessment & Plan: leukocytosis, abnormal labs low grade fever COVID eval necessary longterm patient respiratory support nutrition Urine with UTI pending micro wounds no gross infection rx as written on abx trend labs will follow with recs (3) Suspected 2019 novel coronavirus infection (4) Respiratory distress (5) Failure to thrive Assessment & Plan: DAILY ESTIMATED NEEDS: Needs based on Sepsis 54.5kg 25-35 kcals/kg 7918-3865 total kcals 1-2 g protein/kg 55-109 g total protein 25-30ml/kcal mL/kg 5204-3453 total fluid mLs NUTRITION DIAGNOSIS: Increased kcal and pro needs r/t sepsis and wound healing as evidenced by pt adm w/ critically elev WBC, open sacral/ buttock wound, eval pending. CURRENT DIET: NPO PO DIET RECOMMENDATIONS: Liberalized Regular diet/ texture per HIM SPECIALIST ENTERAL NUTRITION RECOMMENDATIONS: Glucerna 1.5 @40ml/hr x24 hrs to provide 960ml, 1440 kcal, 79g pro, 729ml free H2O - If part of POC, rec to obtain GI access, initiate non oral TFs. - Start Glucerna 1.5 @10ml/hr for 6hrs. Advance as tolerated 10ml/hr q4-6 hrs to goal. - Flush per MD/ HOB over 30 degreed ADDITIONAL RECOMMENDATIONS: 1) With diet order: add BEAN BID. F/up with WC eval 2) Maintain calibrated bed scale wts 3) HIM SPECIALIST eval for oral diet 4) monitor hydration status 5) Glucerna TID w/ meals for oral diet Sundeep Howard September 25, 2019 13:59
[2019-09-25 16:00] VITALS: BP 134/81
[2019-09-25 20:00] VITALS: BP 149/78
[2019-09-25] MEDS ORDERED: Haloperidol 5mg/ml Inj IM PRN (22:45)
[2019-09-26] VITALS: BP 147/76
--- NOTE | 2019-09-26 01:30 | Consultation ---
DATE OF CONSULTATION: 09/25/2019 CONSULTING PHYSICIAN: John Vanegas MD. HISTORY OF PRESENT ILLNESS: The patient is an 89-year-old female with a history of multiple medical issues including COPD, dementia, schizophrenia, anxiety who has been admitted to the hospital for shortness of breath and hypoxemia. Patient is severely agitated. She is on bilateral soft restraints and attempting to come out of the restraints, pulling out the IV access twice today. Patient is easily agitated, confused. Outside of the hospital, she is on trazodone, risperidone as well as Seroquel, melatonin, and Depakote. PAST PSYCHIATRIC HISTORY: Schizophrenia and dementia. She is on psychotropic medication outpatient. PAST MEDICAL HISTORY: Significant for COPD, failure to thrive. ALLERGIES: No known drug allergies. SUBSTANCE ABUSE HISTORY: No history of illicit drug use or alcohol. MENTAL STATUS EXAMINATION: The patient is alert. She is confused, disoriented. Mood is severely agitated. Affect is flat. Thought process is disorganized. Thought content, no suicidal or homicidal ideation. Cognition is impaired. Insight and judgment is impaired. ASSESSMENT: [place] I Dementia. Schizophrenia. [place] II Deferred. [place] III As above. [place] IV Low. [place] V 20. PLAN: 1. Discontinue the risperidone. 2. Discontinue Seroquel and discontinue trazodone. 3. Discontinue the Depakote. 4. Start the patient on Zyprexa that will stimulate her appetite as well. 5. Bilateral soft restraints. 6. Haldol IM p.r.n. 7. Continue to readjust the medications. John Vanegas M.D. DR: ZACHARY JOB#: [id number] CC:
[2019-09-26 04:00] VITALS: BP 172/80
[2019-09-26] MEDS: Piperacillin/Tazobactam 3.375 GM in NS 110 ML IVPB SCH ×3 (05:11→21:25)
[2019-09-26 06:54] LABS: BASOPHILS % (AUTO) 0.9 % (0.0-2.0); EOSINOPHILS % (AUTO) 1.1 % (0.0-3.0); HEMOGLOBIN 9.7 G/DL (12.0-16.0); LYMPHOCYTES % (AUTO) 6.7 % (20.0-45.0); MEAN CORPUSCULAR VOLUME 88 FL (80-99); MONOCYTES % (AUTO) 10.2 % (1.0-10.0); NEUTROPHILS % (AUTO) 81.1 % (45.0-75.0); PLATELET COUNT 323 K/UL (150-450); RED BLOOD COUNT 3.41 M/UL (4.20-5.40); RED CELL DISTRIBUTION WIDTH 13.7 % (11.6-14.8)
[2019-09-26 07:41] LABS: ALANINE AMINOTRANSFERASE 78 U/L (12-78); ALBUMIN 1.6 G/DL (3.4-5.0); ALBUMIN/GLOBULIN RATIO 0.3 (1.0-2.7); ALKALINE PHOSPHATASE 90 U/L (46-116); ANION GAP 5 mmol/L (5-15); ASPARTATE AMINO TRANSFERASE 103 U/L (15-37); BILIRUBIN,TOTAL 0.2 MG/DL (0.2-1.0); BLOOD UREA NITROGEN 39 mg/dL (7-18); CALCIUM 8.7 MG/DL (8.5-10.1); CARBON DIOXIDE 32 MMOL/L (21-32); CHLORIDE 119 MMOL/L (98-107); CREATININE 0.9 MG/DL (0.55-1.30); POTASSIUM 3.8 MMOL/L (3.5-5.1); SODIUM 156 MMOL/L (136-145)
[2019-09-26 08:00] VITALS: BP 144/78
[2019-09-26] MEDS: OLANZapine 2.5mg tab ORAL SCH (09:01)
--- NOTE | 2019-09-26 09:30 | Progress Note ---
DATE: 09/25/2019 SUBJECTIVE: This is an elderly -[id number] female currently in bed, nonverbal and lethargic, failed swallow evaluation. PHYSICAL EXAMINATION: VITAL SIGNS: Blood pressure is 130/70, pulse 74, and respirations 18. HEENT: NAD. CHEST: Bilateral crackles. CARDIOVASCULAR: Regular rhythm. ABDOMEN: Soft. Positive bowel sounds. EXTREMITIES: CCE. ASSESSMENT: 1. Sepsis. 2. Pneumonia. 3. UTI. 4. Anemia. PLAN: Continue antibiotics and bronchodilator treatments. Sher Carrillo M.D. DR: Matthew JOB#: [id number] CC:
--- NOTE | 2019-09-26 10:05 | Pulmonology Progress Note ---
Subjective ROS Limited/Unobtainable: Yes Interval Events: None new Constitutional: Reports: no symptoms HEENT: Repors: no symptoms Respiratory: Reports: no symptoms Cardiovascular: Reports: no symptoms Gastrointestinal/Abdominal: Reports: no symptoms Genitourinary: Reports: no symptoms Neurologic: Reports: no symptoms Allergies: Coded Allergies: No Known Allergies (Unverified , 09/23/19) Objective Last 24 Hour Vital Signs Date Time Temp Pulse Resp B/P (MAP) Pulse Ox O2 Delivery O2 Flow Rate FiO2 09/26/19 09:00 Nasal Cannula 2.0 09/26/19 08:00 98.1 81 20 144/78 (100) 100 09/26/19 07:27 90 09/26/19 07:03 175/91 09/26/19 04:00 99 09/26/19 04:00 96.8 99 20 172/80 (110) 98 09/26/19 00:00 91 09/26/19 00:00 97.9 93 18 147/76 (99) 99 09/25/19 21:00 Nasal Cannula 2.0 09/25/19 20:00 97.9 56 20 149/78 (101) 99 09/25/19 20:00 56 09/25/19 16:00 98.4 112 20 134/81 (98) 98 112 09/25/19 16:00 105 09/25/19 12:00 96 09/25/19 12:00 98.2 111 20 159/96 (117) 99 111 Intake and Output 09/25/19 09/26/19 19:00 07:00 Intake Total 660 ml 230 ml Output Total 700 ml 500 ml Balance -40 ml -270 ml Intake Free Water 300 ml 200 ml Tube Feeding 360 ml 30 ml Output Urine Total 700 ml 500 ml # Voids 2 # Bowel Movements 2 General Appearance: no acute distress HEENT: normocephalic Respiratory: chest wall non-tender, lungs clear Cardiovascular: normal peripheral pulses Abdomen: normal bowel sounds Microbiology Date/Time Source Procedure Growth Status 09/23/19 15:00 Blood Blood Culture - Preliminary NO GROWTH AFTER 48 HOURS Resulted 09/23/19 14:30 Blood Blood Culture - Preliminary NO GROWTH AFTER 48 HOURS Resulted 09/23/19 18:00 Nasal Nares MRSA Culture - Final NO METHICILLIN RESISTANT STAPH AUREUS... Complete 09/23/19 15:00 Nasopharynx Coronavirus COVID-19 PCR ([facility]) - Final Complete 09/23/19 18:00 Rectum - Final NO CARBAPENEM-RESISTANT ENTEROBACTERI... Complete 09/23/19 18:00 Rectum VRE Culture - Final NO VANCOMYCIN RESISTANT ENTEROCOCCUS ... Complete Laboratory Tests 09/26/19 06:25: White Blood Count 13.0H, Red Blood Count 3.41L, Hemoglobin 9.7L, Hematocrit 30.0L, Mean Corpuscular Volume 88, Mean Corpuscular Hemoglobin 28.5, Mean Corpuscular Hemoglobin Concent 32.5, Red Cell Distribution Width 13.7, Platelet Count 323, Mean Platelet Volume 5.6L, Neutrophils (%) (Auto) 81.1H, Lymphocytes (%) (Auto) 6.7L, Monocytes (%) (Auto) 10.2H, Eosinophils (%) (Auto) 1.1, Basophils (%) (Auto) 0.9, Sodium Level 156H, Potassium Level 3.8, Chloride Level 119H, Carbon Dioxide Level 32, Anion Gap 5, Blood Urea Nitrogen 39H, Creatinine 0.9, Estimat Glomerular Filtration Rate > 60, Glucose Level 160H, Calcium Level 8.7, Total Bilirubin 0.2, Aspartate Amino Transf (AST/SGOT) 103H, Alanine Aminotransferase (ALT/SGPT) 78, Alkaline Phosphatase 90, Total Protein 7.1, Albumin 1.6L, Globulin 5.5, Albumin/Globulin Ratio 0.3L Current Medications Medications (Trade) Dose Ordered Sig/Naya Route PRN Reason Start Time Stop Time Status Last Admin Dose Admin Acetaminophen (Tylenol) 650 mg Q6H PRN ORAL For Headache 09/24/19 13:00 10/24/19 12:59 Clonidine HCl (Catapres Tab) 0.1 mg Q6H PRN ORAL For High Blood Pressure 09/26/19 06:45 12/25/19 06:44 09/26/19 07:03 Diphenhydramine HCl (Benadryl) 50 mg Q6H PRN IVP Itching 09/24/19 13:00 10/24/19 12:59 Haloperidol Lactate (Haldol) 5 mg Q6H PRN IM Agitation 09/25/19 22:45 11/09/19 22:44 Olanzapine (ZyPREXA) 2.5 mg DAILY ORAL 09/26/19 09:00 11/10/19 08:59 09/26/19 09:01 Olanzapine (ZyPREXA) 5 mg BEDTIME ORAL 09/26/19 21:00 11/10/19 20:59 Ondansetron HCl (Zofran) 4 mg Q6H PRN IVP Nausea & Vomiting 09/24/19 13:00 10/24/19 12:59 Piperacillin Sod/ Tazobactam Sod 3.375 gm/Sodium Chloride 110 ml @ 27.5 mls/hr Q8HR IVPB 09/25/19 14:27 10/02/19 14:26 09/26/19 05:11 Assessment/Plan Assessment/Plan IMPRESSION: 1. Marked leukocytosis. Improving 2. Hypoxemia. On supplemental o2 3. COPD. 4. senior care resident. 5. Schizophrenia. 6. Dementia. DISCUSSION: Agree with empiric antibiotics. Do not suspect COVID-19; however, need to exclude. pcr x 1 is negative Will repeat Continue current medications and care. I will follow carefully as pulmonary hadoop consultant. Currently saturating well on low flow O2 Hypernatremic; will dc diuresis; hydrate with hypotonic fluids Neha Beverly Omar Syed MD September 26, 2019 10:04
[2019-09-26 11:38] VITALS: BP 145/68
--- NOTE | 2019-09-26 13:32 | Infectious Diseases Prog Note ---
Assessment/Plan Assessment/Plan A 1. Sepsis COVID-19 X 1: negative 2. Hypertension. 3. Dementia. 4. Acute renal failure improving 5. leucocytosis improving P 1. Continue Zosyn. 2. We will follow up cultures and adjust antibiotics accordingly. 3. Continue isolation. 4. We will follow up COVID-19. Subjective ROS Limited/Unobtainable: Yes Constitutional: Denies: fever Neurologic: Reports: confusion, other - on restraint Allergies: Coded Allergies: No Known Allergies (Unverified , 09/23/19) Objective Vital Signs Last 24 Hour Vital Signs Date Time Temp Pulse Resp B/P (MAP) Pulse Ox O2 Delivery O2 Flow Rate FiO2 09/26/19 12:00 90 09/26/19 11:38 96.7 84 19 145/68 (93) 100 09/26/19 09:00 Nasal Cannula 2.0 09/26/19 08:00 98.1 81 20 144/78 (100) 100 09/26/19 07:27 90 09/26/19 07:03 175/91 09/26/19 04:00 99 09/26/19 04:00 96.8 99 20 172/80 (110) 98 09/26/19 00:00 91 09/26/19 00:00 97.9 93 18 147/76 (99) 99 09/25/19 21:00 Nasal Cannula 2.0 09/25/19 20:00 97.9 56 20 149/78 (101) 99 09/25/19 20:00 56 09/25/19 16:00 98.4 112 20 134/81 (98) 98 112 09/25/19 16:00 105 Height (Feet): 5 Height (Inches): 2.00 Weight (Pounds): 124 General Appearance: no acute distress HEENT: mucous membranes moist Respiratory/Chest: no respiratory distress Cardiovascular: normal rate Abdomen: soft, non tender, other - NG tube Extremities: no edema Neurologic/Psychiatric: disoriented Microbiology Date/Time Source Procedure Growth Status 09/23/19 15:00 Blood Blood Culture - Preliminary NO GROWTH AFTER 48 HOURS Resulted 09/23/19 14:30 Blood Blood Culture - Preliminary NO GROWTH AFTER 48 HOURS Resulted 09/23/19 18:00 Nasal Nares MRSA Culture - Final NO METHICILLIN RESISTANT STAPH AUREUS... Complete 09/23/19 15:00 Nasopharynx Coronavirus COVID-19 PCR ([facility]) - Final Complete 09/23/19 18:00 Rectum - Final NO CARBAPENEM-RESISTANT ENTEROBACTERI... Complete 09/23/19 18:00 Rectum VRE Culture - Final NO VANCOMYCIN RESISTANT ENTEROCOCCUS ... Complete Laboratory Tests Test 09/26/19 06:25 White Blood Count 13.0 K/UL (4.8-10.8) H Red Blood Count 3.41 M/UL (4.20-5.40) L Hemoglobin 9.7 G/DL (12.0-16.0) L Hematocrit 30.0 % (37.0-47.0) L Mean Corpuscular Volume 88 FL (80-99) Mean Corpuscular Hemoglobin 28.5 PG (27.0-31.0) Mean Corpuscular Hemoglobin Concent 32.5 G/DL (32.0-36.0) Red Cell Distribution Width 13.7 % (11.6-14.8) Platelet Count 323 K/UL (150-450) Mean Platelet Volume 5.6 FL (6.5-10.1) L Neutrophils (%) (Auto) 81.1 % (45.0-75.0) H Lymphocytes (%) (Auto) 6.7 % (20.0-45.0) L Monocytes (%) (Auto) 10.2 % (1.0-10.0) H Eosinophils (%) (Auto) 1.1 % (0.0-3.0) Basophils (%) (Auto) 0.9 % (0.0-2.0) Sodium Level 156 MMOL/L (136-145) H Potassium Level 3.8 MMOL/L (3.5-5.1) Chloride Level 119 MMOL/L (98-107) H Carbon Dioxide Level 32 MMOL/L (21-32) Anion Gap 5 mmol/L (5-15) Blood Urea Nitrogen 39 mg/dL (7-18) H Creatinine 0.9 MG/DL (0.55-1.30) Estimat Glomerular Filtration Rate > 60 mL/min (>60) Glucose Level 160 MG/DL (74-106) H Calcium Level 8.7 MG/DL (8.5-10.1) Total Bilirubin 0.2 MG/DL (0.2-1.0) Aspartate Amino Transf (AST/SGOT) 103 U/L (15-37) H Alanine Aminotransferase (ALT/SGPT) 78 U/L (12-78) Alkaline Phosphatase 90 U/L (46-116) Total Protein 7.1 G/DL (6.4-8.2) Albumin 1.6 G/DL (3.4-5.0) L Globulin 5.5 g/dL Albumin/Globulin Ratio 0.3 (1.0-2.7) L Current Medications Medications (Trade) Dose Ordered Sig/Naya Route PRN Reason Start Time Stop Time Status Last Admin Dose Admin Acetaminophen (Tylenol) 650 mg Q6H PRN ORAL For Headache 09/24/19 13:00 10/24/19 12:59 Clonidine HCl (Catapres Tab) 0.1 mg Q6H PRN ORAL For High Blood Pressure 09/26/19 06:45 12/25/19 06:44 09/26/19 07:03 Dextrose 1,000 ml @ 50 mls/hr Q20H IV 09/26/19 10:15 10/26/19 10:14 09/26/19 10:14 Diphenhydramine HCl (Benadryl) 50 mg Q6H PRN IVP Itching 09/24/19 13:00 10/24/19 12:59 Haloperidol Lactate (Haldol) 5 mg Q6H PRN IM Agitation 09/25/19 22:45 11/09/19 22:44 Olanzapine (ZyPREXA) 2.5 mg DAILY ORAL 09/26/19 09:00 11/10/19 08:59 09/26/19 09:01 Olanzapine (ZyPREXA) 5 mg BEDTIME ORAL 09/26/19 21:00 11/10/19 20:59 Ondansetron HCl (Zofran) 4 mg Q6H PRN IVP Nausea & Vomiting 09/24/19 13:00 10/24/19 12:59 Piperacillin Sod/ Tazobactam Sod 3.375 gm/Sodium Chloride 110 ml @ 27.5 mls/hr Q8HR IVPB 09/25/19 14:27 10/02/19 14:26 09/26/19 13:01 Cesar Ludwig MD September 26, 2019 13:32
[2019-09-26 15:52] VITALS: BP 127/72
--- NOTE | 2019-09-26 16:00 | Surgery Progress Note ---
Surgery Progress Note Subjective Symptoms: improved, tolerating diet, voiding well Objective Last 24 Hour Vital Signs Date Time Temp Pulse Resp B/P (MAP) Pulse Ox O2 Delivery O2 Flow Rate FiO2 09/26/19 15:52 97.7 79 20 127/72 (90) 94 09/26/19 12:00 90 09/26/19 11:38 96.7 84 19 145/68 (93) 100 09/26/19 09:00 Nasal Cannula 2.0 09/26/19 08:00 98.1 81 20 144/78 (100) 100 09/26/19 07:27 90 09/26/19 07:03 175/91 09/26/19 04:00 99 09/26/19 04:00 96.8 99 20 172/80 (110) 98 09/26/19 00:00 91 09/26/19 00:00 97.9 93 18 147/76 (99) 99 09/25/19 21:00 Nasal Cannula 2.0 09/25/19 20:00 97.9 56 20 149/78 (101) 99 09/25/19 20:00 56 I&O Intake and Output 09/25/19 09/26/19 19:00 07:00 Intake Total 660 ml 230 ml Output Total 700 ml 500 ml Balance -40 ml -270 ml Intake Free Water 300 ml 200 ml Tube Feeding 360 ml 30 ml Output Urine Total 700 ml 500 ml # Voids 2 # Bowel Movements 2 Dressing: saturated Cardiovascular: RSR Respiratory: decreased breath sounds Abdomen: soft, non-tender, present bowel sounds Extremities: no cyanosis Laboratory Tests Test 09/26/19 06:25 White Blood Count 13.0 K/UL (4.8-10.8) H Red Blood Count 3.41 M/UL (4.20-5.40) L Hemoglobin 9.7 G/DL (12.0-16.0) L Hematocrit 30.0 % (37.0-47.0) L Mean Corpuscular Volume 88 FL (80-99) Mean Corpuscular Hemoglobin 28.5 PG (27.0-31.0) Mean Corpuscular Hemoglobin Concent 32.5 G/DL (32.0-36.0) Red Cell Distribution Width 13.7 % (11.6-14.8) Platelet Count 323 K/UL (150-450) Mean Platelet Volume 5.6 FL (6.5-10.1) L Neutrophils (%) (Auto) 81.1 % (45.0-75.0) H Lymphocytes (%) (Auto) 6.7 % (20.0-45.0) L Monocytes (%) (Auto) 10.2 % (1.0-10.0) H Eosinophils (%) (Auto) 1.1 % (0.0-3.0) Basophils (%) (Auto) 0.9 % (0.0-2.0) Sodium Level 156 MMOL/L (136-145) H Potassium Level 3.8 MMOL/L (3.5-5.1) Chloride Level 119 MMOL/L (98-107) H Carbon Dioxide Level 32 MMOL/L (21-32) Anion Gap 5 mmol/L (5-15) Blood Urea Nitrogen 39 mg/dL (7-18) H Creatinine 0.9 MG/DL (0.55-1.30) Estimat Glomerular Filtration Rate > 60 mL/min (>60) Glucose Level 160 MG/DL (74-106) H Calcium Level 8.7 MG/DL (8.5-10.1) Total Bilirubin 0.2 MG/DL (0.2-1.0) Aspartate Amino Transf (AST/SGOT) 103 U/L (15-37) H Alanine Aminotransferase (ALT/SGPT) 78 U/L (12-78) Alkaline Phosphatase 90 U/L (46-116) Total Protein 7.1 G/DL (6.4-8.2) Albumin 1.6 G/DL (3.4-5.0) L Globulin 5.5 g/dL Albumin/Globulin Ratio 0.3 (1.0-2.7) L Plan Problems: (1) Decubitus skin ulcer Assessment & Plan: Pt presented on admission with Multiple Pressure injuries. Unstageable Sacral Pressure injury(L)9.5cm x (W)11cm. Base of wound is 75% necrotic 25% mixed slough and erythema. Periwound is indurated with non- blanchable erythema. No odor or exudate noted. Additional open wound in close proximity noted to lower R cleft of buttocks. DTPI Noted to R heel and lateral R heel. Base of wound is fluctuant, purple with maroon borders.(L)7.5cm x (W)11cm.Periwound is blanchable but boggy. DTPI L heel and Lateral aspect. Base of wound is maroon and fluctuant. (L)6.5cm x (W)9.5cm. Periwound is blanchable but boggy. DTPI L 1st Metatarsal Head. Base of wound is fluctuant,purple with surrounding maroon borders.(L)2.5cm x (W)1.5cm. Non-blanching erythema without fluctuance noted to R 1st metatarsal head. Tx.Plan: Cleanse Sacral wound with Saline. Apply Therahoney impregnated Kerlix. Apply Moisture Barrier Paste periwound. Cover with Optifoam drsg. Daily and prn. Apply Cavilon Skin Barrier to R and L Heels. Cover each heel with Optifoam drsg.Change every 7 days and prn. Apply Cavilon Skin Barrier to R and L 1st Metatarsals Daily and prn. Reposition at least every 2hoours or as tolerated. Place Pillow between Knees. Off-load heels with Pillow. APM/KEYONA Mattress overlay. (2) Sepsis Assessment & Plan: leukocytosis, abnormal labs low grade fever COVID eval necessary group home patient respiratory support nutrition Urine with UTI pending micro wounds no gross infection rx as written on abx trend labs will follow with recs (3) Suspected 2019 novel coronavirus infection (4) Respiratory distress (5) Failure to thrive Assessment & Plan: DAILY ESTIMATED NEEDS: Needs based on Sepsis 54.5kg 25-35 kcals/kg 9739-0955 total kcals 1-2 g protein/kg 55-109 g total protein 25-30ml/kcal mL/kg 0808-7434 total fluid mLs NUTRITION DIAGNOSIS: Increased kcal and pro needs r/t sepsis and wound healing as evidenced by pt adm w/ critically elev WBC, open sacral/ buttock wound, eval pending. CURRENT DIET: NPO PO DIET RECOMMENDATIONS: Liberalized Regular diet/ texture per CASE MANAGEMENT DIRECTOR ENTERAL NUTRITION RECOMMENDATIONS: Glucerna 1.5 @40ml/hr x24 hrs to provide 960ml, 1440 kcal, 79g pro, 729ml free H2O - If part of POC, rec to obtain GI access, initiate non oral TFs. - Start Glucerna 1.5 @10ml/hr for 6hrs. Advance as tolerated 10ml/hr q4-6 hrs to goal. - Flush per MD/ HOB over 30 degreed ADDITIONAL RECOMMENDATIONS: 1) With diet order: add BEAN BID. F/up with WC eval 2) Maintain calibrated bed scale wts 3) CASE MANAGEMENT DIRECTOR eval for oral diet 4) monitor hydration status 5) Glucerna TID w/ meals for oral diet Sundeep Howard September 26, 2019 16:00
--- NOTE | 2019-09-26 17:07 | Cardiac Electrophysiology PN ---
Subjective Subjective [id number] Objective Last 24 Hour Vital Signs Date Time Temp Pulse Resp B/P (MAP) Pulse Ox O2 Delivery O2 Flow Rate FiO2 09/26/19 15:52 97.7 79 20 127/72 (90) 94 09/26/19 12:00 90 09/26/19 11:38 96.7 84 19 145/68 (93) 100 09/26/19 09:00 Nasal Cannula 2.0 09/26/19 08:00 98.1 81 20 144/78 (100) 100 09/26/19 07:27 90 09/26/19 07:03 175/91 09/26/19 04:00 99 09/26/19 04:00 96.8 99 20 172/80 (110) 98 09/26/19 00:00 91 09/26/19 00:00 97.9 93 18 147/76 (99) 99 09/25/19 21:00 Nasal Cannula 2.0 09/25/19 20:00 97.9 56 20 149/78 (101) 99 09/25/19 20:00 56 Intake and Output 09/25/19 09/26/19 19:00 07:00 Intake Total 660 ml 230 ml Output Total 700 ml 500 ml Balance -40 ml -270 ml Intake Free Water 300 ml 200 ml Tube Feeding 360 ml 30 ml Output Urine Total 700 ml 500 ml # Voids 2 # Bowel Movements 2 Laboratory Tests Test 09/26/19 06:25 White Blood Count 13.0 K/UL (4.8-10.8) H Red Blood Count 3.41 M/UL (4.20-5.40) L Hemoglobin 9.7 G/DL (12.0-16.0) L Hematocrit 30.0 % (37.0-47.0) L Mean Corpuscular Volume 88 FL (80-99) Mean Corpuscular Hemoglobin 28.5 PG (27.0-31.0) Mean Corpuscular Hemoglobin Concent 32.5 G/DL (32.0-36.0) Red Cell Distribution Width 13.7 % (11.6-14.8) Platelet Count 323 K/UL (150-450) Mean Platelet Volume 5.6 FL (6.5-10.1) L Neutrophils (%) (Auto) 81.1 % (45.0-75.0) H Lymphocytes (%) (Auto) 6.7 % (20.0-45.0) L Monocytes (%) (Auto) 10.2 % (1.0-10.0) H Eosinophils (%) (Auto) 1.1 % (0.0-3.0) Basophils (%) (Auto) 0.9 % (0.0-2.0) Sodium Level 156 MMOL/L (136-145) H Potassium Level 3.8 MMOL/L (3.5-5.1) Chloride Level 119 MMOL/L (98-107) H Carbon Dioxide Level 32 MMOL/L (21-32) Anion Gap 5 mmol/L (5-15) Blood Urea Nitrogen 39 mg/dL (7-18) H Creatinine 0.9 MG/DL (0.55-1.30) Estimat Glomerular Filtration Rate > 60 mL/min (>60) Glucose Level 160 MG/DL (74-106) H Calcium Level 8.7 MG/DL (8.5-10.1) Total Bilirubin 0.2 MG/DL (0.2-1.0) Aspartate Amino Transf (AST/SGOT) 103 U/L (15-37) H Alanine Aminotransferase (ALT/SGPT) 78 U/L (12-78) Alkaline Phosphatase 90 U/L (46-116) Total Protein 7.1 G/DL (6.4-8.2) Albumin 1.6 G/DL (3.4-5.0) L Globulin 5.5 g/dL Albumin/Globulin Ratio 0.3 (1.0-2.7) L Microbiology Date/Time Source Procedure Growth Status 09/23/19 18:00 Nasal Nares MRSA Culture - Final NO METHICILLIN RESISTANT STAPH AUREUS... Complete 09/23/19 18:00 Rectum - Final NO CARBAPENEM-RESISTANT ENTEROBACTERI... Complete 09/23/19 18:00 Rectum VRE Culture - Final NO VANCOMYCIN RESISTANT ENTEROCOCCUS ... Complete Srinivas Hsieh MD September 26, 2019 17:07
[2019-09-26 20:00] VITALS: BP 154/61
--- NOTE | 2019-09-26 23:30 | Progress Note ---
DATE: 09/26/2019 SUBJECTIVE: This is an elderly female, currently in bed, nonverbal, and was found to have severe bradycardia. Heart rate runs probably 90 to 40. The patient is confused, in the bed, restraints. PHYSICAL EXAMINATION: VITAL SIGNS: Blood pressure is 145/68, pulse currently 84, respirations 19, temperature 96.7. HEENT: Eyes are closed. NECK: Supple. CHEST: Bilaterally decreased breath sounds. CARDIOVASCULAR: Regular rhythm. ABDOMEN: Soft. EXTREMITIES: CCE. NEUROLOGICAL: Generalized weakness. LABORATORY DATA: White counts 13,000, hemoglobin 10, hematocrit 30, platelets are 323. Chemistry panel, BUN 39, creatinine 0.9. Urine showing positive toxicology. Random vancomycin 7.1. Her microbiology report, the patient has enterococcus resistant to carbapenem culture. ASSESSMENT: 1. Sepsis. 2. MRSA. 3. COVID test is negative. 4. Failure to thrive. 5. Dysphagia. 6. Decubiti. 7. Severe malnutrition. PLAN: 1. We will currently continue antibiotics. 2. Continue Haldol. 3. Continue Zosyn. 4. Consider ID consult. Sher Carrillo M.D. DR: ONEIL JOB#: [id number] CC:
--- NOTE | 2019-09-26 23:45 | Consultation ---
DATE OF CONSULTATION: 09/26/2019 CARDIOLOGY CONSULTATION CONSULTING PHYSICIAN: Srinivas Hsieh MD. REFERRING PHYSICIAN: David Villanueva MD. REASON FOR CONSULTATION: Bradycardia with heart rate of 40. HISTORY OF PRESENT ILLNESS: Patient is an 89-year-old lady with history of COPD and schizophrenia, who was admitted to the hospital for hypoxemia. Patient has history of COPD even though she is not oxygen dependent. Patient was found to be hypoxic and was admitted and being ruled out for COVID-19. Today, patient had episodes of bradycardia, heart rate dropped into 40 and yesterday also had bradycardia, heart rate in the high 40s. REVIEW OF SYSTEMS: Cannot be obtained due to mental status. PAST MEDICAL HISTORY: As mentioned above. FAMILY HISTORY: Noncontributory. SOCIAL HISTORY: [facility] resident. Does not smoke or drink alcohol. PHYSICAL EXAMINATION: VITAL SIGNS: Blood pressure is 122/72, pulse 79, respirations 20, temperature 97.7. HEAD AND NECK: Showed no JVD. Has G-tube. LUNGS: Coarse rhonchi. CARDIOVASCULAR: Regular S1, S2 with no gallop. ABDOMEN: Soft. EXTREMITIES: No pitting edema. LABORATORY DATA: Labs show white count of initially 22,000 went down to 13, hemoglobin 9.7, hematocrit 30, and platelet count is 323. Sodium 156, potassium 3.8, BUN of 39, creatinine 0.9, and glucose of 160. ASSESSMENT AND PLAN: 1. Bradycardia with sinus bradycardia. Patient is only on p.r.n. clonidine that will be discontinued. This could be due to patient's psych medication as she is on Zyprexa. We will also check a thyroid function test and get an echocardiogram. 2. History of hypertension. Blood pressure currently is stable. Off antihypertensive agents. 3. 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 Further evaluation by Dr. Howard. 4. Sepsis and leukocytosis. 5. Rule out COVID. 6. Dementia and psychosis. Thank you very much for allowing me to participate in the care of this patient. Please do not hesitate to contact me for any questions regarding my evaluation. Srinivas Hsieh M.D. DR: SHAE JOB#: [id number] CC:
[2019-09-27] VITALS (7 sets, daily range): BP systolic 121–162; BP diastolic 50–76
--- NOTE | 2019-09-27 03:15 | Progress Note ---
DATE: 09/26/2019 SUBJECTIVE: The patient is much calmer, severely agitated, and is having no behavior issues. Still on bilateral self-restraints, has NG tube. MENTAL STATUS EXAMINATION: The patient is alert, disoriented. Mood is less agitated. Affect is flat. Thought process is concrete. Thought content, no suicidal or homicidal ideation. Cognition is impaired. Insight and judgment impaired. ASSESSMENT: 1. Dementia with behavior disturbance. 2. Acute encephalopathy. PLAN: 1. Continue Zyprexa only. 2. Continue bilateral self-restraints. 3. Discussed with the nurse. John Vanegas M.D. DR: IGOR JOB#: [id number] CC:
[2019-09-27] MEDS: Piperacillin/Tazobactam 3.375 GM in NS 110 ML IVPB SCH ×3 (05:46→22:02)
[2019-09-27 06:36] LABS: BASOPHILS % (AUTO) 1.3 % (0.0-2.0); EOSINOPHILS % (AUTO) 1.3 % (0.0-3.0); HEMATOCRIT 30.1 % (37.0-47.0); HEMOGLOBIN 9.7 G/DL (12.0-16.0); MEAN CORPUSCULAR VOLUME 88 FL (80-99); MONOCYTES % (AUTO) 12.8 % (1.0-10.0); NEUTROPHILS % (AUTO) 77.6 % (45.0-75.0); PLATELET COUNT 323 K/UL (150-450); RED BLOOD COUNT 3.42 M/UL (4.20-5.40); RED CELL DISTRIBUTION WIDTH 13.3 % (11.6-14.8); WHITE BLOOD COUNT 13.1 K/UL (4.8-10.8)
[2019-09-27 06:57] LABS: ANION GAP 7 mmol/L (5-15); BLOOD UREA NITROGEN 26 mg/dL (7-18); CALCIUM 8.6 MG/DL (8.5-10.1); CARBON DIOXIDE 30 MMOL/L (21-32); CHLORIDE 111 MMOL/L (98-107); CREATININE 0.9 MG/DL (0.55-1.30); POTASSIUM 3.7 MMOL/L (3.5-5.1); SODIUM 148 MMOL/L (136-145)
[2019-09-27] MEDS: OLANZapine 2.5mg tab ORAL SCH (08:32)
--- NOTE | 2019-09-27 09:12 | Cardiac Electrophysiology PN ---
Assessment/Plan Assessment/Plan 1. Bradycardia with sinus bradycardia. Only on p.r.n. clonidine that was discontinued. Not hypothyroid. Likely has sick sinus syndrome. 2. History of hypertension. Blood pressure currently is stable. Off antihypertensive agents. 3. 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 Further evaluation by Dr. Howard. 4. Sepsis and leukocytosis.WBC decreasing on Abx 5. Rule out COVID. 6. Dementia and psychosis. DW RN Subjective Subjective Continues with episodes of bradycardia of sudden onset and termination. Objective Last 24 Hour Vital Signs Date Time Temp Pulse Resp B/P (MAP) Pulse Ox O2 Delivery O2 Flow Rate FiO2 09/27/19 08:00 98.1 83 20 138/66 (90) 100 09/27/19 04:00 98.0 65 19 135/50 (78) 96 09/27/19 04:00 46 09/27/19 00:00 89 09/27/19 00:00 97.9 89 19 150/70 (96) 99 09/26/19 21:00 Nasal Cannula 2.0 09/26/19 20:00 93 09/26/19 20:00 98.4 92 20 154/61 (92) 99 09/26/19 15:52 97.7 79 20 127/72 (90) 94 09/26/19 15:29 92 09/26/19 12:00 90 09/26/19 11:38 96.7 84 19 145/68 (93) 100 Intake and Output 09/26/19 09/27/19 19:00 07:00 Intake Total 1350.0 ml Balance 1350.0 ml Intake Free Water 400 ml IV Total 510.0 ml Tube Feeding 440 ml # Voids 2 # Bowel Movements 3 Laboratory Tests Test 09/27/19 06:12 White Blood Count 13.1 K/UL (4.8-10.8) H Red Blood Count 3.42 M/UL (4.20-5.40) L Hemoglobin 9.7 G/DL (12.0-16.0) L Hematocrit 30.1 % (37.0-47.0) L Mean Corpuscular Volume 88 FL (80-99) Mean Corpuscular Hemoglobin 28.2 PG (27.0-31.0) Mean Corpuscular Hemoglobin Concent 32.1 G/DL (32.0-36.0) Red Cell Distribution Width 13.3 % (11.6-14.8) Platelet Count 323 K/UL (150-450) Mean Platelet Volume 5.4 FL (6.5-10.1) L Neutrophils (%) (Auto) 77.6 % (45.0-75.0) H Lymphocytes (%) (Auto) 7.0 % (20.0-45.0) L Monocytes (%) (Auto) 12.8 % (1.0-10.0) H Eosinophils (%) (Auto) 1.3 % (0.0-3.0) Basophils (%) (Auto) 1.3 % (0.0-2.0) Sodium Level 148 MMOL/L (136-145) H Potassium Level 3.7 MMOL/L (3.5-5.1) Chloride Level 111 MMOL/L (98-107) H Carbon Dioxide Level 30 MMOL/L (21-32) Anion Gap 7 mmol/L (5-15) Blood Urea Nitrogen 26 mg/dL (7-18) H Creatinine 0.9 MG/DL (0.55-1.30) Estimat Glomerular Filtration Rate > 60 mL/min (>60) Glucose Level 177 MG/DL (74-106) H Calcium Level 8.6 MG/DL (8.5-10.1) Troponin I 0.006 ng/mL (0.000-0.056) Pro-B-Type Natriuretic Peptide 622 pg/mL (0-125) H Thyroid Stimulating Hormone (TSH) 3.190 uiU/mL (0.358-3.740) Free Thyroxine 1.10 NG/DL (0.76-1.46) Objective HEAD AND NECK: No JVD. NG tube LUNGS: Coarse rhonchi. CARDIOVASCULAR: Regular S1, S2 with no gallop. ABDOMEN: Soft. EXTREMITIES: No pitting edema. Srinivas Hsieh MD September 27, 2019 09:12
--- NOTE | 2019-09-27 10:25 | Infectious Diseases Prog Note ---
Assessment/Plan Assessment/Plan antibiotics ; zosyn A 1. Pneumonia COVID-19 test negative x 1 2. Hypertension. 3. Dementia. 4. Renal failure improving 5. leucocytosis improving P 1. Continue Zosyn 2 more days 2. We will follow up cultures 3. Continue isolation. 4. COVID-19 test Subjective ROS Limited/Unobtainable: Yes Allergies: Coded Allergies: No Known Allergies (Unverified , 09/23/19) Objective Vital Signs Last 24 Hour Vital Signs Date Time Temp Pulse Resp B/P (MAP) Pulse Ox O2 Delivery O2 Flow Rate FiO2 09/27/19 09:00 Nasal Cannula 2.0 09/27/19 08:00 98.1 83 20 138/66 (90) 100 09/27/19 07:46 53 09/27/19 04:00 98.0 65 19 135/50 (78) 96 09/27/19 04:00 46 09/27/19 00:00 89 09/27/19 00:00 97.9 89 19 150/70 (96) 99 09/26/19 21:00 Nasal Cannula 2.0 09/26/19 20:00 93 09/26/19 20:00 98.4 92 20 154/61 (92) 99 09/26/19 15:52 97.7 79 20 127/72 (90) 94 09/26/19 15:29 92 09/26/19 12:00 90 09/26/19 11:38 96.7 84 19 145/68 (93) 100 Height (Feet): 5 Height (Inches): 2.00 Weight (Pounds): 124 Laboratory Tests Test 09/27/19 06:12 White Blood Count 13.1 K/UL (4.8-10.8) H Red Blood Count 3.42 M/UL (4.20-5.40) L Hemoglobin 9.7 G/DL (12.0-16.0) L Hematocrit 30.1 % (37.0-47.0) L Mean Corpuscular Volume 88 FL (80-99) Mean Corpuscular Hemoglobin 28.2 PG (27.0-31.0) Mean Corpuscular Hemoglobin Concent 32.1 G/DL (32.0-36.0) Red Cell Distribution Width 13.3 % (11.6-14.8) Platelet Count 323 K/UL (150-450) Mean Platelet Volume 5.4 FL (6.5-10.1) L Neutrophils (%) (Auto) 77.6 % (45.0-75.0) H Lymphocytes (%) (Auto) 7.0 % (20.0-45.0) L Monocytes (%) (Auto) 12.8 % (1.0-10.0) H Eosinophils (%) (Auto) 1.3 % (0.0-3.0) Basophils (%) (Auto) 1.3 % (0.0-2.0) Sodium Level 148 MMOL/L (136-145) H Potassium Level 3.7 MMOL/L (3.5-5.1) Chloride Level 111 MMOL/L (98-107) H Carbon Dioxide Level 30 MMOL/L (21-32) Anion Gap 7 mmol/L (5-15) Blood Urea Nitrogen 26 mg/dL (7-18) H Creatinine 0.9 MG/DL (0.55-1.30) Estimat Glomerular Filtration Rate > 60 mL/min (>60) Glucose Level 177 MG/DL (74-106) H Calcium Level 8.6 MG/DL (8.5-10.1) Troponin I 0.006 ng/mL (0.000-0.056) Pro-B-Type Natriuretic Peptide 622 pg/mL (0-125) H Thyroid Stimulating Hormone (TSH) 3.190 uiU/mL (0.358-3.740) Free Thyroxine 1.10 NG/DL (0.76-1.46) Current Medications Medications (Trade) Dose Ordered Sig/Naya Route PRN Reason Start Time Stop Time Status Last Admin Dose Admin Acetaminophen (Tylenol) 650 mg Q6H PRN ORAL For Headache 09/24/19 13:00 10/24/19 12:59 09/26/19 21:29 Dextrose 1,000 ml @ 50 mls/hr Q20H IV 09/26/19 10:15 10/26/19 10:14 09/26/19 10:14 Diphenhydramine HCl (Benadryl) 50 mg Q6H PRN IVP Itching 09/24/19 13:00 10/24/19 12:59 Haloperidol Lactate (Haldol) 5 mg Q6H PRN IM Agitation 09/25/19 22:45 11/09/19 22:44 Olanzapine (ZyPREXA) 2.5 mg DAILY ORAL 09/26/19 09:00 11/10/19 08:59 09/27/19 08:32 Olanzapine (ZyPREXA) 5 mg BEDTIME ORAL 09/26/19 21:00 11/10/19 20:59 09/26/19 21:25 Ondansetron HCl (Zofran) 4 mg Q6H PRN IVP Nausea & Vomiting 09/24/19 13:00 10/24/19 12:59 Piperacillin Sod/ Tazobactam Sod 3.375 gm/Sodium Chloride 110 ml @ 27.5 mls/hr Q8HR IVPB 09/25/19 14:27 10/02/19 14:26 09/27/19 05:46 Mazin Skinner MD September 27, 2019 10:24
--- NOTE | 2019-09-27 11:31 | Pulmonology Progress Note ---
Subjective ROS Limited/Unobtainable: Yes Interval Events: None new; Na 148 Constitutional: Denies: fever HEENT: Repors: no symptoms Respiratory: Reports: no symptoms Cardiovascular: Reports: no symptoms Gastrointestinal/Abdominal: Reports: no symptoms Genitourinary: Reports: no symptoms Neurologic: Reports: no symptoms Allergies: Coded Allergies: No Known Allergies (Unverified , 09/23/19) Objective Last 24 Hour Vital Signs Date Time Temp Pulse Resp B/P (MAP) Pulse Ox O2 Delivery O2 Flow Rate FiO2 09/27/19 09:00 Nasal Cannula 2.0 09/27/19 08:00 98.1 83 20 138/66 (90) 100 09/27/19 07:46 53 09/27/19 04:00 98.0 65 19 135/50 (78) 96 09/27/19 04:00 46 09/27/19 00:00 89 09/27/19 00:00 97.9 89 19 150/70 (96) 99 09/26/19 21:00 Nasal Cannula 2.0 09/26/19 20:00 93 09/26/19 20:00 98.4 92 20 154/61 (92) 99 09/26/19 15:52 97.7 79 20 127/72 (90) 94 09/26/19 15:29 92 09/26/19 12:00 90 09/26/19 11:38 96.7 84 19 145/68 (93) 100 Intake and Output 09/26/19 09/27/19 19:00 07:00 Intake Total 1350.0 ml 50 ml Balance 1350.0 ml 50 ml Intake Free Water 400 ml IV Total 510.0 ml 50 ml Tube Feeding 440 ml # Voids 2 # Bowel Movements 3 General Appearance: no acute distress HEENT: normocephalic Respiratory: chest wall non-tender, lungs clear Cardiovascular: normal peripheral pulses Abdomen: normal bowel sounds Laboratory Tests 09/27/19 06:12: White Blood Count 13.1H, Red Blood Count 3.42L, Hemoglobin 9.7L, Hematocrit 30.1L, Mean Corpuscular Volume 88, Mean Corpuscular Hemoglobin 28.2, Mean Corpuscular Hemoglobin Concent 32.1, Red Cell Distribution Width 13.3, Platelet Count 323, Mean Platelet Volume 5.4L, Neutrophils (%) (Auto) 77.6H, Lymphocytes (%) (Auto) 7.0L, Monocytes (%) (Auto) 12.8H, Eosinophils (%) (Auto) 1.3, Basophils (%) (Auto) 1.3, Sodium Level 148H, Potassium Level 3.7, Chloride Level 111H, Carbon Dioxide Level 30, Anion Gap 7, Blood Urea Nitrogen 26H, Creatinine 0.9, Estimat Glomerular Filtration Rate > 60, Glucose Level 177H, Calcium Level 8.6, Troponin I 0.006, Pro-B-Type Natriuretic Peptide 622H, Thyroid Stimulating Hormone (TSH) 3.190, Free Thyroxine 1.10 Current Medications Medications (Trade) Dose Ordered Sig/Naya Route PRN Reason Start Time Stop Time Status Last Admin Dose Admin Acetaminophen (Tylenol) 650 mg Q6H PRN ORAL For Headache 09/24/19 13:00 10/24/19 12:59 09/26/19 21:29 Diphenhydramine HCl (Benadryl) 50 mg Q6H PRN IVP Itching 09/24/19 13:00 10/24/19 12:59 Haloperidol Lactate (Haldol) 5 mg Q6H PRN IM Agitation 09/25/19 22:45 11/09/19 22:44 Olanzapine (ZyPREXA) 2.5 mg DAILY ORAL 09/26/19 09:00 11/10/19 08:59 09/27/19 08:32 Olanzapine (ZyPREXA) 5 mg BEDTIME ORAL 09/26/19 21:00 11/10/19 20:59 09/26/19 21:25 Ondansetron HCl (Zofran) 4 mg Q6H PRN IVP Nausea & Vomiting 09/24/19 13:00 10/24/19 12:59 Piperacillin Sod/ Tazobactam Sod 3.375 gm/Sodium Chloride 110 ml @ 27.5 mls/hr Q8HR IVPB 09/25/19 14:27 09/29/19 14:26 09/27/19 05:46 Assessment/Plan Assessment/Plan IMPRESSION: 1. Marked leukocytosis. Improving 2. Hypoxemia. On supplemental o2 3. COPD. 4. senior living resident. 5. Schizophrenia. 6. Dementia. 7. Hypernatremia; better DISCUSSION: Agree with empiric antibiotics. Do not suspect COVID-19; however, need to exclude. pcr x 1 is negative Will repeat Continue current medications and care. I will follow carefully as pulmonary outreach consultant. Currently saturating well on low flow O2 Hypernatremic; will dc hypotonic fluids Decrease free water to 250 ml q 6 Neha Beverly Omar Syed MD September 27, 2019 11:31
--- NOTE | 2019-09-27 13:06 | Surgery Progress Note ---
Surgery Progress Note Subjective Additional Comments labs stable exam stable no acute events wbc 13k Objective Last 24 Hour Vital Signs Date Time Temp Pulse Resp B/P (MAP) Pulse Ox O2 Delivery O2 Flow Rate FiO2 09/27/19 11:40 98.7 89 20 162/76 (104) 100 09/27/19 11:21 75 09/27/19 09:00 Nasal Cannula 2.0 09/27/19 08:00 98.1 83 20 138/66 (90) 100 09/27/19 07:46 53 09/27/19 04:00 98.0 65 19 135/50 (78) 96 09/27/19 04:00 46 09/27/19 00:00 89 09/27/19 00:00 97.9 89 19 150/70 (96) 99 09/26/19 21:00 Nasal Cannula 2.0 09/26/19 20:00 93 09/26/19 20:00 98.4 92 20 154/61 (92) 99 09/26/19 15:52 97.7 79 20 127/72 (90) 94 09/26/19 15:29 92 I&O Intake and Output 09/26/19 09/27/19 18:59 06:59 Intake Total 1390.0 ml Balance 1390.0 ml Intake Free Water 400 ml IV Total 510.0 ml Tube Feeding 480 ml # Voids 2 # Bowel Movements 3 Cardiovascular: RSR Respiratory: decreased breath sounds Abdomen: soft, non-tender, present bowel sounds Extremities: no cyanosis Laboratory Tests Test 09/27/19 06:12 White Blood Count 13.1 K/UL (4.8-10.8) H Red Blood Count 3.42 M/UL (4.20-5.40) L Hemoglobin 9.7 G/DL (12.0-16.0) L Hematocrit 30.1 % (37.0-47.0) L Mean Corpuscular Volume 88 FL (80-99) Mean Corpuscular Hemoglobin 28.2 PG (27.0-31.0) Mean Corpuscular Hemoglobin Concent 32.1 G/DL (32.0-36.0) Red Cell Distribution Width 13.3 % (11.6-14.8) Platelet Count 323 K/UL (150-450) Mean Platelet Volume 5.4 FL (6.5-10.1) L Neutrophils (%) (Auto) 77.6 % (45.0-75.0) H Lymphocytes (%) (Auto) 7.0 % (20.0-45.0) L Monocytes (%) (Auto) 12.8 % (1.0-10.0) H Eosinophils (%) (Auto) 1.3 % (0.0-3.0) Basophils (%) (Auto) 1.3 % (0.0-2.0) Sodium Level 148 MMOL/L (136-145) H Potassium Level 3.7 MMOL/L (3.5-5.1) Chloride Level 111 MMOL/L (98-107) H Carbon Dioxide Level 30 MMOL/L (21-32) Anion Gap 7 mmol/L (5-15) Blood Urea Nitrogen 26 mg/dL (7-18) H Creatinine 0.9 MG/DL (0.55-1.30) Estimat Glomerular Filtration Rate > 60 mL/min (>60) Glucose Level 177 MG/DL (74-106) H Calcium Level 8.6 MG/DL (8.5-10.1) Troponin I 0.006 ng/mL (0.000-0.056) Pro-B-Type Natriuretic Peptide 622 pg/mL (0-125) H Thyroid Stimulating Hormone (TSH) 3.190 uiU/mL (0.358-3.740) Free Thyroxine 1.10 NG/DL (0.76-1.46) Plan Problems: (1) Decubitus skin ulcer Assessment & Plan: Pt presented on admission with Multiple Pressure injuries. Unstageable Sacral Pressure injury(L)9.5cm x (W)11cm. Base of wound is 75% necrotic 25% mixed slough and erythema. Periwound is indurated with non- blanchable erythema. No odor or exudate noted. Additional open wound in close proximity noted to lower R cleft of buttocks. DTPI Noted to R heel and lateral R heel. Base of wound is fluctuant, purple with maroon borders.(L)7.5cm x (W)11cm.Periwound is blanchable but boggy. DTPI L heel and Lateral aspect. Base of wound is maroon and fluctuant. (L)6.5cm x (W)9.5cm. Periwound is blanchable but boggy. DTPI L 1st Metatarsal Head. Base of wound is fluctuant,purple with surrounding maroon borders.(L)2.5cm x (W)1.5cm. Non-blanching erythema without fluctuance noted to R 1st metatarsal head. Tx.Plan: Cleanse Sacral wound with Saline. Apply Therahoney impregnated Kerlix. Apply Moisture Barrier Paste periwound. Cover with Optifoam drsg. Daily and prn. Apply Cavilon Skin Barrier to R and L Heels. Cover each heel with Optifoam drsg.Change every 7 days and prn. Apply Cavilon Skin Barrier to R and L 1st Metatarsals Daily and prn. Reposition at least every 2hoours or as tolerated. Place Pillow between Knees. Off-load heels with Pillow. APM/KEYONA Mattress overlay. (2) Sepsis Assessment & Plan: leukocytosis, abnormal labs low grade fever COVID eval necessary senior living patient respiratory support nutrition Urine with UTI pending micro wounds no gross infection rx as written on abx trend labs will follow with recs (3) Suspected 2019 novel coronavirus infection (4) Respiratory distress (5) Failure to thrive Assessment & Plan: DAILY ESTIMATED NEEDS: Needs based on Sepsis 54.5kg 25-35 kcals/kg 3268-4891 total kcals 1-2 g protein/kg 55-109 g total protein 25-30ml/kcal mL/kg 9908-9295 total fluid mLs NUTRITION DIAGNOSIS: Increased kcal and pro needs r/t sepsis and wound healing as evidenced by pt adm w/ critically elev WBC, open sacral/ buttock wound, eval pending. CURRENT DIET: NPO PO DIET RECOMMENDATIONS: Liberalized Regular diet/ texture per [employer] ENTERAL NUTRITION RECOMMENDATIONS: Glucerna 1.5 @40ml/hr x24 hrs to provide 960ml, 1440 kcal, 79g pro, 729ml free H2O - If part of POC, rec to obtain GI access, initiate non oral TFs. - Start Glucerna 1.5 @10ml/hr for 6hrs. Advance as tolerated 10ml/hr q4-6 hrs to goal. - Flush per MD/ HOB over 30 degreed ADDITIONAL RECOMMENDATIONS: 1) With diet order: add BEAN BID. F/up with WC eval 2) Maintain calibrated bed scale wts 3) [employer]EF[employer]IST eval for oral diet 4) monitor hydration status 5) Glucerna TID w/ meals for oral diet Sundeep Howard September 27, 2019 13:06
--- NOTE | 2019-09-27 22:41 | Psych Consult Progress Note ---
Psychiatry Progress Note Psychiatry Progress Note Medications Current Medications Medications (Trade) Dose Ordered Sig/Naya Route PRN Reason Start Time Stop Time Status Last Admin Dose Admin Acetaminophen (Tylenol) 650 mg Q6H PRN ORAL For Headache 09/24/19 13:00 10/24/19 12:59 09/26/19 21:29 Diphenhydramine HCl (Benadryl) 50 mg Q6H PRN IVP Itching 09/24/19 13:00 10/24/19 12:59 Haloperidol Lactate (Haldol) 5 mg Q6H PRN IM Agitation 09/25/19 22:45 11/09/19 22:44 Olanzapine (ZyPREXA) 2.5 mg DAILY ORAL 09/26/19 09:00 11/10/19 08:59 09/27/19 08:32 Olanzapine (ZyPREXA) 5 mg BEDTIME ORAL 09/26/19 21:00 11/10/19 20:59 09/27/19 20:48 Ondansetron HCl (Zofran) 4 mg Q6H PRN IVP Nausea & Vomiting 09/24/19 13:00 10/24/19 12:59 Piperacillin Sod/ Tazobactam Sod 3.375 gm/Sodium Chloride 110 ml @ 27.5 mls/hr Q8HR IVPB 09/25/19 14:27 09/29/19 14:26 09/27/19 22:02 Neurological/Psychiatric: Reports: anxiety, depressed Allergies: Coded Allergies: No Known Allergies (Unverified , 09/23/19) Objective Data Height (Feet): 5 Height (Inches): 2.00 Weight (Pounds): 124 General Appearance: alert, confused, agitated Additional Comments: confused, disoriented. Mood is severely agitated. Affect is flat. Thought process is disorganized. Thought content, no suicidal or homicidal ideation. Cognition is impaired. Insight and judgment is impaired. Assessment/Plan Assessment/Plan: ASSESSMENT: Lawrence I Dementia. Schizophrenia. PLAN: 1. Zyprexa that will stimulate her appetite as well. 2. Bilateral soft restraints. 3. Haldol IM p.r.n. 4. Continue to readjust the medications. John Vanegas MD September 27, 2019 22:41
[2019-09-28] VITALS: BP 144/55
[2019-09-28 04:00] VITALS: BP 143/68
[2019-09-28] MEDS: Piperacillin/Tazobactam 3.375 GM in NS 110 ML IVPB SCH ×3 (05:51→22:00)
[2019-09-28 08:00] VITALS: BP 131/69
[2019-09-28] MEDS: OLANZapine 2.5mg tab ORAL SCH (08:58)
--- NOTE | 2019-09-28 10:39 | Surgery Progress Note ---
Surgery Progress Note Subjective Additional Comments no acute events labs reviewed exam stable comfortable Objective Last 24 Hour Vital Signs Date Time Temp Pulse Resp B/P (MAP) Pulse Ox O2 Delivery O2 Flow Rate FiO2 09/28/19 09:00 Nasal Cannula 2.0 09/28/19 08:00 98.1 96 20 131/69 (89) 97 09/28/19 08:00 80 09/28/19 04:00 99.3 117 18 143/68 (93) 98 09/28/19 04:00 86 09/28/19 00:00 100.0 100 22 144/55 (84) 96 09/28/19 00:00 89 09/27/19 21:00 Nasal Cannula 2.0 09/27/19 20:00 95 09/27/19 20:00 99.1 100 20 121/71 (88) 96 09/27/19 16:00 98.1 67 18 147/68 (94) 100 09/27/19 15:57 82 09/27/19 13:50 151/69 (96) 09/27/19 11:40 98.7 89 20 162/76 (104) 100 09/27/19 11:21 75 I&O Intake and Output 09/27/19 09/28/19 19:00 07:00 Intake Total 1250.0 ml 40 ml Output Total 1200 ml Balance 1250.0 ml -1160 ml Intake Free Water 500 ml IV Total 310.0 ml Tube Feeding 440 ml 40 ml Output Urine Total 1200 ml # Bowel Movements 2 2 Dressing: other Wound: other Drains: other Cardiovascular: RSR Respiratory: decreased breath sounds Abdomen: soft, present bowel sounds Extremities: no cyanosis Plan Problems: (1) Decubitus skin ulcer Assessment & Plan: Pt presented on admission with Multiple Pressure injuries. Unstageable Sacral Pressure injury(L)9.5cm x (W)11cm. Base of wound is 75% necrotic 25% mixed slough and erythema. Periwound is indurated with non- blanchable erythema. No odor or exudate noted. Additional open wound in close proximity noted to lower R cleft of buttocks. DTPI Noted to R heel and lateral R heel. Base of wound is fluctuant, purple with maroon borders.(L)7.5cm x (W)11cm.Periwound is blanchable but boggy. DTPI L heel and Lateral aspect. Base of wound is maroon and fluctuant. (L)6.5cm x (W)9.5cm. Periwound is blanchable but boggy. DTPI L 1st Metatarsal Head. Base of wound is fluctuant,purple with surrounding maroon borders.(L)2.5cm x (W)1.5cm. Non-blanching erythema without fluctuance noted to R 1st metatarsal head. Tx.Plan: Cleanse Sacral wound with Saline. Apply Therahoney impregnated Kerlix. Apply Moisture Barrier Paste periwound. Cover with Optifoam drsg. Daily and prn. Apply Cavilon Skin Barrier to R and L Heels. Cover each heel with Optifoam drsg.Change every 7 days and prn. Apply Cavilon Skin Barrier to R and L 1st Metatarsals Daily and prn. Reposition at least every 2hoours or as tolerated. Place Pillow between Knees. Off-load heels with Pillow. APM/KEYONA Mattress overlay. (2) Sepsis Assessment & Plan: leukocytosis, abnormal labs low grade fever COVID eval necessary group home patient respiratory support nutrition Urine with UTI pending micro wounds no gross infection rx as written on abx trend labs will follow with recs (3) Suspected 2019 novel coronavirus infection (4) Respiratory distress (5) Failure to thrive Assessment & Plan: DAILY ESTIMATED NEEDS: Needs based on Sepsis 54.5kg 25-35 kcals/kg 5695-0921 total kcals 1-2 g protein/kg 55-109 g total protein 25-30ml/kcal mL/kg 6374-8131 total fluid mLs NUTRITION DIAGNOSIS: Increased kcal and pro needs r/t sepsis and wound healing as evidenced by pt adm w/ critically elev WBC, open sacral/ buttock wound, eval pending. CURRENT DIET: NPO PO DIET RECOMMENDATIONS: Liberalized Regular diet/ texture per [employer] ENTERAL NUTRITION RECOMMENDATIONS: Glucerna 1.5 @40ml/hr x24 hrs to provide 960ml, 1440 kcal, 79g pro, 729ml free H2O - If part of POC, rec to obtain GI access, initiate non oral TFs. - Start Glucerna 1.5 @10ml/hr for 6hrs. Advance as tolerated 10ml/hr q4-6 hrs to goal. - Flush per MD/ HOB over 30 degreed ADDITIONAL RECOMMENDATIONS: 1) With diet order: add BEAN BID. F/up with WC eval 2) Maintain calibrated bed scale wts 3) [employer] eval for oral diet 4) monitor hydration status 5) Glucerna TID w/ meals for oral diet Sundeep Howard September 28, 2019 10:39
--- NOTE | 2019-09-28 11:17 | Pulmonology Progress Note ---
Subjective ROS Limited/Unobtainable: Yes Interval Events: None new; labs ordered Constitutional: Denies: fever HEENT: Repors: no symptoms Respiratory: Reports: no symptoms Cardiovascular: Reports: no symptoms Gastrointestinal/Abdominal: Reports: no symptoms Genitourinary: Reports: no symptoms Neurologic: Reports: no symptoms Allergies: Coded Allergies: No Known Allergies (Unverified , 09/23/19) Objective Last 24 Hour Vital Signs Date Time Temp Pulse Resp B/P (MAP) Pulse Ox O2 Delivery O2 Flow Rate FiO2 09/28/19 09:00 Nasal Cannula 2.0 09/28/19 08:00 98.1 96 20 131/69 (89) 97 09/28/19 08:00 80 09/28/19 04:00 99.3 117 18 143/68 (93) 98 09/28/19 04:00 86 09/28/19 00:00 100.0 100 22 144/55 (84) 96 09/28/19 00:00 89 09/27/19 21:00 Nasal Cannula 2.0 09/27/19 20:00 95 09/27/19 20:00 99.1 100 20 121/71 (88) 96 09/27/19 16:00 98.1 67 18 147/68 (94) 100 09/27/19 15:57 82 09/27/19 13:50 151/69 (96) 09/27/19 11:40 98.7 89 20 162/76 (104) 100 09/27/19 11:21 75 Intake and Output 09/27/19 09/28/19 19:00 07:00 Intake Total 1250.0 ml 40 ml Output Total 1200 ml Balance 1250.0 ml -1160 ml Intake Free Water 500 ml IV Total 310.0 ml Tube Feeding 440 ml 40 ml Output Urine Total 1200 ml # Bowel Movements 2 2 General Appearance: no acute distress HEENT: normocephalic Respiratory: chest wall non-tender, lungs clear Cardiovascular: normal peripheral pulses Abdomen: normal bowel sounds Microbiology Date/Time Source Procedure Growth Status 09/25/19 13:30 Nasopharynx Coronavirus COVID-19 PCR ([facility]) - Final Complete Current Medications Medications (Trade) Dose Ordered Sig/Naya Route PRN Reason Start Time Stop Time Status Last Admin Dose Admin Acetaminophen (Tylenol) 650 mg Q6H PRN ORAL For Headache 09/24/19 13:00 6/18/20 12:59 09/28/19 00:36 Diphenhydramine HCl (Benadryl) 50 mg Q6H PRN IVP Itching 09/24/19 13:00 10/24/19 12:59 Haloperidol Lactate (Haldol) 5 mg Q6H PRN IM Agitation 09/25/19 22:45 11/09/19 22:44 Olanzapine (ZyPREXA) 2.5 mg DAILY ORAL 09/26/19 09:00 11/10/19 08:59 09/28/19 08:58 Olanzapine (ZyPREXA) 5 mg BEDTIME ORAL 09/26/19 21:00 11/10/19 20:59 09/27/19 20:48 Ondansetron HCl (Zofran) 4 mg Q6H PRN IVP Nausea & Vomiting 09/24/19 13:00 10/24/19 12:59 Piperacillin Sod/ Tazobactam Sod 3.375 gm/Sodium Chloride 110 ml @ 27.5 mls/hr Q8HR IVPB 09/25/19 14:27 09/29/19 14:26 09/28/19 05:51 Assessment/Plan Assessment/Plan IMPRESSION: 1. Marked leukocytosis. Improving 2. Hypoxemia. On supplemental o2 3. COPD. 4. long-term resident. 5. Schizophrenia. 6. Dementia. 7. Hypernatremia; better DISCUSSION: Agree with empiric antibiotics. Do not suspect COVID-19; pcr x 2 is negative Continue current medications and care. I will follow carefully as pulmonary consultant nurse. Currently saturating well on low flow O2 Hypernatremic; will dc hypotonic fluids Decrease free water to 250 ml q 6 Check labs Neha Beverly Omar Syed MD September 28, 2019 11:17
[2019-09-28 12:00] VITALS: BP 149/69
[2019-09-28 12:07] LABS: HEMATOCRIT 31.5 % (37.0-47.0); HEMOGLOBIN 10.1 G/DL (12.0-16.0); MEAN CORPUSCULAR VOLUME 87 FL (80-99); PLATELET COUNT 276 K/UL (150-450); RED BLOOD COUNT 3.61 M/UL (4.20-5.40); RED CELL DISTRIBUTION WIDTH 13.2 % (11.6-14.8)
[2019-09-28 12:09] LABS: ANION GAP 3 mmol/L (5-15); BLOOD UREA NITROGEN 21 mg/dL (7-18); CALCIUM 8.1 MG/DL (8.5-10.1); CARBON DIOXIDE 34 MMOL/L (21-32); CHLORIDE 106 MMOL/L (98-107); CREATININE 0.8 MG/DL (0.55-1.30); SODIUM 143 MMOL/L (136-145)
--- NOTE | 2019-09-28 14:01 | Cardiac Electrophysiology PN ---
Assessment/Plan Assessment/Plan 1. Bradycardia with sinus bradycardia off any KERR or AVN blockers. Not hypothyroid. Likely has sick sinus syndrome. 2. History of hypertension. Off antihypertensive agents. 3. 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 Further evaluation by Dr. Howard. 4. Sepsis and leukocytosis.WBC decreasing on Abx 5. Rule out COVID. 6. Dementia and psychosis. DW RN Subjective Subjective Continues with episodes of bradycardia of sudden onset and termination.Confused in restraints with NGT feeding Objective Last 24 Hour Vital Signs Date Time Temp Pulse Resp B/P (MAP) Pulse Ox O2 Delivery O2 Flow Rate FiO2 09/28/19 12:00 98.0 93 20 149/69 (95) 99 09/28/19 12:00 88 09/28/19 09:00 Nasal Cannula 2.0 09/28/19 08:00 98.1 96 20 131/69 (89) 97 09/28/19 08:00 80 09/28/19 04:00 99.3 117 18 143/68 (93) 98 09/28/19 04:00 86 09/28/19 00:00 100.0 100 22 144/55 (84) 96 09/28/19 00:00 89 09/27/19 21:00 Nasal Cannula 2.0 09/27/19 20:00 95 09/27/19 20:00 99.1 100 20 121/71 (88) 96 09/27/19 16:00 98.1 67 18 147/68 (94) 100 09/27/19 15:57 82 Intake and Output 09/27/19 09/28/19 19:00 07:00 Intake Total 1250.0 ml 40 ml Output Total 1200 ml Balance 1250.0 ml -1160 ml Intake Free Water 500 ml IV Total 310.0 ml Tube Feeding 440 ml 40 ml Output Urine Total 1200 ml # Bowel Movements 2 2 Laboratory Tests Test 09/28/19 11:40 White Blood Count 18.0 K/UL (4.8-10.8) H Red Blood Count 3.61 M/UL (4.20-5.40) L Hemoglobin 10.1 G/DL (12.0-16.0) L Hematocrit 31.5 % (37.0-47.0) L Mean Corpuscular Volume 87 FL (80-99) Mean Corpuscular Hemoglobin 28.0 PG (27.0-31.0) Mean Corpuscular Hemoglobin Concent 32.1 G/DL (32.0-36.0) Red Cell Distribution Width 13.2 % (11.6-14.8) Platelet Count 276 K/UL (150-450) Mean Platelet Volume 5.7 FL (6.5-10.1) L Neutrophils (%) (Auto) % (45.0-75.0) Lymphocytes (%) (Auto) % (20.0-45.0) Monocytes (%) (Auto) % (1.0-10.0) Eosinophils (%) (Auto) % (0.0-3.0) Basophils (%) (Auto) % (0.0-2.0) Differential Total Cells Counted 100 Neutrophils % (Manual) 84 % (45-75) H Lymphocytes % (Manual) 5 % (20-45) L Monocytes % (Manual) 9 % (1-10) Eosinophils % (Manual) 0 % (0-3) Basophils % (Manual) 0 % (0-2) Band Neutrophils 2 % (0-8) Platelet Estimate Adequate Platelet Morphology Normal Hypochromasia 1+ Anisocytosis 1+ Sodium Level 143 MMOL/L (136-145) Potassium Level 4.0 MMOL/L (3.5-5.1) Chloride Level 106 MMOL/L (98-107) Carbon Dioxide Level 34 MMOL/L (21-32) H Anion Gap 3 mmol/L (5-15) L Blood Urea Nitrogen 21 mg/dL (7-18) H Creatinine 0.8 MG/DL (0.55-1.30) Estimat Glomerular Filtration Rate > 60 mL/min (>60) Glucose Level 178 MG/DL (74-106) H Calcium Level 8.1 MG/DL (8.5-10.1) L Objective HEAD AND NECK: No JVD. NG tube LUNGS: Coarse rhonchi. CARDIOVASCULAR: Regular S1, S2 with no gallop. ABDOMEN: Soft. EXTREMITIES: No pitting edema. Srinivas Hsieh MD September 28, 2019 14:01
[2019-09-28 16:00] VITALS: BP 127/69
[2019-09-28 20:00] VITALS: BP 138/52
--- NOTE | 2019-09-28 22:45 | Progress Note ---
DATE: 09/28/2019 SUBJECTIVE: This 89-year-old female came with sepsis, pneumonia, and generalized weakness. The patient is agitated, having some tremors, physically doing okay. PHYSICAL EXAMINATION: VITAL SIGNS: Blood pressure is 130/70, pulse 84, respirations 18. HEENT: NAD. CHEST: Bilaterally clear. CARDIOVASCULAR: Regular rhythm. No gallop. No murmur. ABDOMEN: Soft. Positive bowel sounds. Nontender. EXTREMITIES: CCE. NEUROLOGICAL: Generalized weakness. ASSESSMENT: 1. Altered mental status. 2. Sepsis. 3. Aspiration pneumonia. 4. Encephalopathy. 5. Dysphagia. PLAN: We will continue NPO, IV fluid, NG tube feeding. Continue antibiotics. Continue isolation. ID consult is on case. Patient has bradycardia, which is improving, but Cardiology is on case. Sher Carrillo M.D. DR: RAYSHAWN JOB#: [id number] CC:
[2019-09-29] VITALS: BP 131/63
[2019-09-29 04:00] VITALS: BP 124/56
[2019-09-29] MEDS: Piperacillin/Tazobactam 3.375 GM in NS 110 ML IVPB SCH (06:00)
[2019-09-29 07:09] LABS: HEMATOCRIT 28.3 % (37.0-47.0); HEMOGLOBIN 9.6 G/DL (12.0-16.0); MEAN CORPUSCULAR VOLUME 85 FL (80-99); PLATELET COUNT 290 K/UL (150-450); RED BLOOD COUNT 3.33 M/UL (4.20-5.40); RED CELL DISTRIBUTION WIDTH 13.1 % (11.6-14.8)
[2019-09-29 07:40] LABS: WHITE BLOOD COUNT 22.6 K/UL (4.8-10.8)
[2019-09-29 08:00] VITALS: BP 138/60
[2019-09-29] MEDS: OLANZapine 2.5mg tab ORAL SCH (08:30)
[2019-09-29 08:38] LABS: ANION GAP 5 mmol/L (5-15); BLOOD UREA NITROGEN 18 mg/dL (7-18); CALCIUM 8.3 MG/DL (8.5-10.1); CARBON DIOXIDE 33 MMOL/L (21-32); CHLORIDE 106 MMOL/L (98-107); CREATININE 0.9 MG/DL (0.55-1.30); POTASSIUM 4.2 MMOL/L (3.5-5.1); SODIUM 143 MMOL/L (136-145)
--- NOTE | 2019-09-29 10:31 | Pulmonology Progress Note ---
Subjective ROS Limited/Unobtainable: Yes Interval Events: None new; labs reviewed Constitutional: Denies: fever HEENT: Repors: no symptoms Respiratory: Reports: no symptoms Cardiovascular: Reports: no symptoms Gastrointestinal/Abdominal: Reports: no symptoms Genitourinary: Reports: no symptoms Neurologic: Reports: no symptoms Allergies: Coded Allergies: No Known Allergies (Unverified , 09/23/19) Objective Last 24 Hour Vital Signs Date Time Temp Pulse Resp B/P (MAP) Pulse Ox O2 Delivery O2 Flow Rate FiO2 09/29/19 04:00 80 09/29/19 04:00 98.8 83 22 124/56 (78) 96 09/29/19 00:00 85 09/29/19 00:00 99.0 82 22 131/63 (85) 99 09/28/19 21:00 Nasal Cannula 2.0 09/28/19 20:00 98.4 90 18 138/52 (80) 95 09/28/19 16:00 85 09/28/19 16:00 97.5 90 20 127/69 (88) 97 09/28/19 12:00 98.0 93 20 149/69 (95) 99 09/28/19 12:00 88 Intake and Output 09/28/19 09/29/19 19:00 07:00 Output Total 1100 ml Balance -1100 ml Output Urine Total 1100 ml # Voids 1 # Bowel Movements 1 1 General Appearance: no acute distress HEENT: normocephalic Respiratory: chest wall non-tender, lungs clear Cardiovascular: normal peripheral pulses Abdomen: normal bowel sounds Laboratory Tests 09/28/19 11:40: White Blood Count 18.0H, Red Blood Count 3.61L, Hemoglobin 10.1L, Hematocrit 31.5L, Mean Corpuscular Volume 87, Mean Corpuscular Hemoglobin 28.0, Mean Corpuscular Hemoglobin Concent 32.1, Red Cell Distribution Width 13.2, Platelet Count 276, Mean Platelet Volume 5.7L, Neutrophils (%) (Auto) , Lymphocytes (%) ( Auto) , Monocytes (%) (Auto) , Eosinophils (%) (Auto) , Basophils (%) (Auto) , Differential Total Cells Counted 100, Neutrophils % (Manual) 84H, Lymphocytes % (Manual) 5L, Monocytes % (Manual) 9, Eosinophils % (Manual) 0, Basophils % ( Manual) 0, Band Neutrophils 2, Platelet Estimate Adequate, Platelet Morphology Normal, Hypochromasia 1+, Anisocytosis 1+, Sodium Level 143, Potassium Level 4.0 , Chloride Level 106, Carbon Dioxide Level 34H, Anion Gap 3L, Blood Urea Nitrogen 21H, Creatinine 0.8, Estimat Glomerular Filtration Rate > 60, Glucose Level 178H, Calcium Level 8.1L 09/29/19 06:28: White Blood Count 22.6*H, Red Blood Count 3.33L, Hemoglobin 9.6L, Hematocrit 28.3L, Mean Corpuscular Volume 85, Mean Corpuscular Hemoglobin 28.8, Mean Corpuscular Hemoglobin Concent 33.9, Red Cell Distribution Width 13.1, Platelet Count 290, Mean Platelet Volume 5.5L, Neutrophils (%) (Auto) , Lymphocytes (%) ( Auto) , Monocytes (%) (Auto) , Eosinophils (%) (Auto) , Basophils (%) (Auto) , Differential Total Cells Counted 100, Neutrophils % (Manual) 90H, Lymphocytes % (Manual) 2L, Monocytes % (Manual) 6, Eosinophils % (Manual) 1, Basophils % ( Manual) 0, Band Neutrophils 1, Platelet Estimate Adequate, Platelet Morphology Normal, Hypochromasia 2+, Anisocytosis 1+, Sodium Level 143, Potassium Level 4.2 , Chloride Level 106, Carbon Dioxide Level 33H, Anion Gap 5, Blood Urea Nitrogen 18, Creatinine 0.9, Estimat Glomerular Filtration Rate > 60, Glucose Level 178H, Calcium Level 8.3L, Spherocytes 1+ Current Medications Medications (Trade) Dose Ordered Sig/Naya Route PRN Reason Start Time Stop Time Status Last Admin Dose Admin Acetaminophen (Tylenol) 650 mg Q6H PRN ORAL For Headache 09/24/19 13:00 10/24/19 12:59 09/28/19 00:36 Diphenhydramine HCl (Benadryl) 50 mg Q6H PRN IVP Itching 09/24/19 13:00 10/24/19 12:59 Haloperidol Lactate (Haldol) 5 mg Q6H PRN IM Agitation 09/25/19 22:45 11/09/19 22:44 Olanzapine (ZyPREXA) 2.5 mg DAILY ORAL 09/26/19 09:00 11/10/19 08:59 09/29/19 08:30 Olanzapine (ZyPREXA) 5 mg BEDTIME ORAL 09/26/19 21:00 11/10/19 20:59 09/28/19 21:23 Ondansetron HCl (Zofran) 4 mg Q6H PRN IVP Nausea & Vomiting 09/24/19 13:00 10/24/19 12:59 Piperacillin Sod/ Tazobactam Sod 3.375 gm/Sodium Chloride 110 ml @ 27.5 mls/hr Q8HR IVPB 09/25/19 14:27 09/29/19 14:26 09/29/19 06:00 Assessment/Plan Assessment/Plan IMPRESSION: 1. Marked leukocytosis. WBXC now 22K 2. Hypoxemia. On supplemental o2; improved. 3. COPD. 4. group home resident. 5. Schizophrenia. 6. Dementia. 7. Hypernatremia; better; now normal DISCUSSION: Agree with empiric antibiotics. Will discuss with ID to broaden Do not suspect COVID-19; pcr x 2 is negative Continue current medications and care. I will follow carefully as pulmonary desktop support consultant. Currently saturating well on low flow O2 Hypernatremic; off hypotonic fluids Decreased free water to 250 ml q 6 Check labs AM David Villanueva M.D. David Villanueva MD September 29, 2019 10:31
[2019-09-29 12:00] VITALS: BP 142/55
--- NOTE | 2019-09-29 13:20 | Infectious Diseases Prog Note ---
Assessment/Plan Assessment/Plan A 1. Sepsis COVID-19 X 1: negative 2. Hypertension. 3. Dementia. 4. Acute renal failure improving 5. leucocytosis increasing P 1. Continue Zosyn. 2. We will follow up cultures and CXR 3. Continue isolation. . Subjective ROS Limited/Unobtainable: Yes Neurologic: Reports: confusion, other - on restraint Allergies: Coded Allergies: No Known Allergies (Unverified , 09/23/19) Objective Vital Signs Last 24 Hour Vital Signs Date Time Temp Pulse Resp B/P (MAP) Pulse Ox O2 Delivery O2 Flow Rate FiO2 09/29/19 12:00 85 09/29/19 12:00 97.5 92 20 142/55 (84) 96 09/29/19 09:00 Nasal Cannula 2.0 09/29/19 08:00 97.7 87 22 138/60 (86) 97 09/29/19 08:00 85 09/29/19 04:00 80 09/29/19 04:00 98.8 83 22 124/56 (78) 96 09/29/19 00:00 85 09/29/19 00:00 99.0 82 22 131/63 (85) 99 09/28/19 21:00 Nasal Cannula 2.0 09/28/19 20:00 98.4 90 18 138/52 (80) 95 09/28/19 16:00 85 09/28/19 16:00 97.5 90 20 127/69 (88) 97 Height (Feet): 5 Height (Inches): 2.00 Weight (Pounds): 124 General Appearance: no acute distress HEENT: mucous membranes moist Respiratory/Chest: lungs clear, other - oxygen by nasal cannula Cardiovascular: normal rate Abdomen: soft, non tender Extremities: no edema Skin: ulcers, other - sacral ulcer, left big toe blister Neurologic/Psychiatric: disoriented Musculoskeletal: atrophy Laboratory Tests Test 09/29/19 06:28 White Blood Count 22.6 K/UL (4.8-10.8) *H Red Blood Count 3.33 M/UL (4.20-5.40) L Hemoglobin 9.6 G/DL (12.0-16.0) L Hematocrit 28.3 % (37.0-47.0) L Mean Corpuscular Volume 85 FL (80-99) Mean Corpuscular Hemoglobin 28.8 PG (27.0-31.0) Mean Corpuscular Hemoglobin Concent 33.9 G/DL (32.0-36.0) Red Cell Distribution Width 13.1 % (11.6-14.8) Platelet Count 290 K/UL (150-450) Mean Platelet Volume 5.5 FL (6.5-10.1) L Neutrophils (%) (Auto) % (45.0-75.0) Lymphocytes (%) (Auto) % (20.0-45.0) Monocytes (%) (Auto) % (1.0-10.0) Eosinophils (%) (Auto) % (0.0-3.0) Basophils (%) (Auto) % (0.0-2.0) Differential Total Cells Counted 100 Neutrophils % (Manual) 90 % (45-75) H Lymphocytes % (Manual) 2 % (20-45) L Monocytes % (Manual) 6 % (1-10) Eosinophils % (Manual) 1 % (0-3) Basophils % (Manual) 0 % (0-2) Band Neutrophils 1 % (0-8) Platelet Estimate Adequate Platelet Morphology Normal Hypochromasia 2+ Anisocytosis 1+ Spherocytes 1+ Sodium Level 143 MMOL/L (136-145) Potassium Level 4.2 MMOL/L (3.5-5.1) Chloride Level 106 MMOL/L (98-107) Carbon Dioxide Level 33 MMOL/L (21-32) H Anion Gap 5 mmol/L (5-15) Blood Urea Nitrogen 18 mg/dL (7-18) Creatinine 0.9 MG/DL (0.55-1.30) Estimat Glomerular Filtration Rate > 60 mL/min (>60) Glucose Level 178 MG/DL (74-106) H Calcium Level 8.3 MG/DL (8.5-10.1) L Current Medications Medications (Trade) Dose Ordered Sig/Naya Route PRN Reason Start Time Stop Time Status Last Admin Dose Admin Acetaminophen (Tylenol) 650 mg Q6H PRN ORAL For Headache 09/24/19 13:00 10/24/19 12:59 09/28/19 00:36 Diphenhydramine HCl (Benadryl) 50 mg Q6H PRN IVP Itching 09/24/19 13:00 10/24/19 12:59 Haloperidol Lactate (Haldol) 5 mg Q6H PRN IM Agitation 09/25/19 22:45 11/09/19 22:44 Olanzapine (ZyPREXA) 2.5 mg DAILY ORAL 09/26/19 09:00 11/10/19 08:59 09/29/19 08:30 Olanzapine (ZyPREXA) 5 mg BEDTIME ORAL 09/26/19 21:00 11/10/19 20:59 09/28/19 21:23 Ondansetron HCl (Zofran) 4 mg Q6H PRN IVP Nausea & Vomiting 09/24/19 13:00 10/24/19 12:59 Piperacillin Sod/ Tazobactam Sod 3.375 gm/Sodium Chloride 110 ml @ 27.5 mls/hr Q8HR IVPB 09/25/19 14:27 09/29/19 14:26 09/29/19 06:00 Cesar Ludwig MD September 29, 2019 13:20
[2019-09-29] MEDS ORDERED: Piperacillin/Tazobactam 3.375 GM in NS 110 ML IVPB SCH (14:00)
[2019-09-29] MEDS ORDERED: DiphenhydrAMINE 50mg/ml Inj IVP PRN (14:05)
[2019-09-29] MEDS ORDERED: Haloperidol 5mg/ml Inj IM PRN (14:06)
--- NOTE | 2019-09-29 14:31 | Surgery Progress Note ---
Surgery Progress Note Subjective Symptoms: improved, tolerating diet, voiding well Objective Last 24 Hour Vital Signs Date Time Temp Pulse Resp B/P (MAP) Pulse Ox O2 Delivery O2 Flow Rate FiO2 09/29/19 12:00 85 09/29/19 12:00 97.5 92 20 142/55 (84) 96 09/29/19 09:00 Nasal Cannula 2.0 09/29/19 08:00 97.7 87 22 138/60 (86) 97 09/29/19 08:00 85 09/29/19 04:00 80 09/29/19 04:00 98.8 83 22 124/56 (78) 96 09/29/19 00:00 85 09/29/19 00:00 99.0 82 22 131/63 (85) 99 09/28/19 21:00 Nasal Cannula 2.0 09/28/19 20:00 98.4 90 18 138/52 (80) 95 09/28/19 16:00 85 09/28/19 16:00 97.5 90 20 127/69 (88) 97 I&O Intake and Output 09/28/19 09/29/19 19:00 07:00 Output Total 1100 ml Balance -1100 ml Output Urine Total 1100 ml # Voids 1 # Bowel Movements 1 1 Dressing: other Wound: other Drains: other Cardiovascular: RSR Respiratory: decreased breath sounds Abdomen: soft, non-tender, present bowel sounds Extremities: no cyanosis, other Laboratory Tests Test 09/29/19 06:28 White Blood Count 22.6 K/UL (4.8-10.8) *H Red Blood Count 3.33 M/UL (4.20-5.40) L Hemoglobin 9.6 G/DL (12.0-16.0) L Hematocrit 28.3 % (37.0-47.0) L Mean Corpuscular Volume 85 FL (80-99) Mean Corpuscular Hemoglobin 28.8 PG (27.0-31.0) Mean Corpuscular Hemoglobin Concent 33.9 G/DL (32.0-36.0) Red Cell Distribution Width 13.1 % (11.6-14.8) Platelet Count 290 K/UL (150-450) Mean Platelet Volume 5.5 FL (6.5-10.1) L Neutrophils (%) (Auto) % (45.0-75.0) Lymphocytes (%) (Auto) % (20.0-45.0) Monocytes (%) (Auto) % (1.0-10.0) Eosinophils (%) (Auto) % (0.0-3.0) Basophils (%) (Auto) % (0.0-2.0) Differential Total Cells Counted 100 Neutrophils % (Manual) 90 % (45-75) H Lymphocytes % (Manual) 2 % (20-45) L Monocytes % (Manual) 6 % (1-10) Eosinophils % (Manual) 1 % (0-3) Basophils % (Manual) 0 % (0-2) Band Neutrophils 1 % (0-8) Platelet Estimate Adequate Platelet Morphology Normal Hypochromasia 2+ Anisocytosis 1+ Spherocytes 1+ Sodium Level 143 MMOL/L (136-145) Potassium Level 4.2 MMOL/L (3.5-5.1) Chloride Level 106 MMOL/L (98-107) Carbon Dioxide Level 33 MMOL/L (21-32) H Anion Gap 5 mmol/L (5-15) Blood Urea Nitrogen 18 mg/dL (7-18) Creatinine 0.9 MG/DL (0.55-1.30) Estimat Glomerular Filtration Rate > 60 mL/min (>60) Glucose Level 178 MG/DL (74-106) H Calcium Level 8.3 MG/DL (8.5-10.1) L Plan Problems: (1) Decubitus skin ulcer Assessment & Plan: Pt presented on admission with Multiple Pressure injuries. Unstageable Sacral Pressure injury(L)9.5cm x (W)11cm. Base of wound is 75% necrotic 25% mixed slough and erythema. Periwound is indurated with non- blanchable erythema. No odor or exudate noted. Additional open wound in close proximity noted to lower R cleft of buttocks. DTPI Noted to R heel and lateral R heel. Base of wound is fluctuant, purple with maroon borders.(L)7.5cm x (W)11cm.Periwound is blanchable but boggy. DTPI L heel and Lateral aspect. Base of wound is maroon and fluctuant. (L)6.5cm x (W)9.5cm. Periwound is blanchable but boggy. DTPI L 1st Metatarsal Head. Base of wound is fluctuant,purple with surrounding maroon borders.(L)2.5cm x (W)1.5cm. Non-blanching erythema without fluctuance noted to R 1st metatarsal head. Tx.Plan: Cleanse Sacral wound with Saline. Apply Therahoney impregnated Kerlix. Apply Moisture Barrier Paste periwound. Cover with Optifoam drsg. Daily and prn. Apply Cavilon Skin Barrier to R and L Heels. Cover each heel with Optifoam drsg.Change every 7 days and prn. Apply Cavilon Skin Barrier to R and L 1st Metatarsals Daily and prn. Reposition at least every 2hoours or as tolerated. Place Pillow between Knees. Off-load heels with Pillow. APM/KEYONA Mattress overlay. (2) Sepsis Assessment & Plan: leukocytosis, abnormal labs low grade fever COVID eval necessary long-term patient respiratory support nutrition Urine with UTI pending micro wounds no gross infection rx as written on abx trend labs will follow with recs (3) Suspected 2019 novel coronavirus infection (4) Respiratory distress (5) Failure to thrive Assessment & Plan: DAILY ESTIMATED NEEDS: Needs based on Sepsis 54.5kg 25-35 kcals/kg 4965-5466 total kcals 1-2 g protein/kg 55-109 g total protein 25-30ml/kcal mL/kg 8655-6622 total fluid mLs NUTRITION DIAGNOSIS: Increased kcal and pro needs r/t sepsis and wound healing as evidenced by pt adm w/ critically elev WBC, open sacral/ buttock wound, eval pending. CURRENT DIET: NPO PO DIET RECOMMENDATIONS: Liberalized Regular diet/ texture per REFUSE DRIVER ENTERAL NUTRITION RECOMMENDATIONS: Glucerna 1.5 @40ml/hr x24 hrs to provide 960ml, 1440 kcal, 79g pro, 729ml free H2O - If part of POC, rec to obtain GI access, initiate non oral TFs. - Start Glucerna 1.5 @10ml/hr for 6hrs. Advance as tolerated 10ml/hr q4-6 hrs to goal. - Flush per MD/ HOB over 30 degreed ADDITIONAL RECOMMENDATIONS: 1) With diet order: add BEAN BID. F/up with WC eval 2) Maintain calibrated bed scale wts 3) REFUSE DRIVER eval for oral diet 4) monitor hydration status 5) Glucerna TID w/ meals for oral diet Sundeep oHward September 29, 2019 14:31
[2019-09-29 16:00] VITALS: BP 149/55
--- NOTE | 2019-09-29 16:46 | Cardiac Electrophysiology PN ---
Assessment/Plan Assessment/Plan 1. Bradycardia with sinus bradycardia off any KERR or AVN blockers. Not hypothyroid. Likely has sick sinus syndrome. 2. History of hypertension. Off antihypertensive agents. 3. 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 Further evaluation by Dr. Howard. 4. Sepsis and leukocytosis. WBC decreasing on Abx 5. Rule out COVID. 6. Dementia and psychosis. DW RN Subjective Subjective Had episodes of bradycardia of sudden onset and termination.Confused in restraints with NGT feeding ongoing. Off tele now Objective Last 24 Hour Vital Signs Date Time Temp Pulse Resp B/P (MAP) Pulse Ox O2 Delivery O2 Flow Rate FiO2 09/29/19 12:00 85 09/29/19 12:00 97.5 92 20 142/55 (84) 96 09/29/19 09:00 Nasal Cannula 2.0 09/29/19 08:00 97.7 87 22 138/60 (86) 97 09/29/19 08:00 85 09/29/19 04:00 80 09/29/19 04:00 98.8 83 22 124/56 (78) 96 09/29/19 00:00 85 09/29/19 00:00 99.0 82 22 131/63 (85) 99 09/28/19 21:00 Nasal Cannula 2.0 09/28/19 20:00 98.4 90 18 138/52 (80) 95 Intake and Output 09/28/19 09/29/19 19:00 07:00 Output Total 1100 ml Balance -1100 ml Output Urine Total 1100 ml # Voids 1 # Bowel Movements 1 1 Laboratory Tests Test 09/29/19 06:28 White Blood Count 22.6 K/UL (4.8-10.8) *H Red Blood Count 3.33 M/UL (4.20-5.40) L Hemoglobin 9.6 G/DL (12.0-16.0) L Hematocrit 28.3 % (37.0-47.0) L Mean Corpuscular Volume 85 FL (80-99) Mean Corpuscular Hemoglobin 28.8 PG (27.0-31.0) Mean Corpuscular Hemoglobin Concent 33.9 G/DL (32.0-36.0) Red Cell Distribution Width 13.1 % (11.6-14.8) Platelet Count 290 K/UL (150-450) Mean Platelet Volume 5.5 FL (6.5-10.1) L Neutrophils (%) (Auto) % (45.0-75.0) Lymphocytes (%) (Auto) % (20.0-45.0) Monocytes (%) (Auto) % (1.0-10.0) Eosinophils (%) (Auto) % (0.0-3.0) Basophils (%) (Auto) % (0.0-2.0) Differential Total Cells Counted 100 Neutrophils % (Manual) 90 % (45-75) H Lymphocytes % (Manual) 2 % (20-45) L Monocytes % (Manual) 6 % (1-10) Eosinophils % (Manual) 1 % (0-3) Basophils % (Manual) 0 % (0-2) Band Neutrophils 1 % (0-8) Platelet Estimate Adequate Platelet Morphology Normal Hypochromasia 2+ Anisocytosis 1+ Spherocytes 1+ Sodium Level 143 MMOL/L (136-145) Potassium Level 4.2 MMOL/L (3.5-5.1) Chloride Level 106 MMOL/L (98-107) Carbon Dioxide Level 33 MMOL/L (21-32) H Anion Gap 5 mmol/L (5-15) Blood Urea Nitrogen 18 mg/dL (7-18) Creatinine 0.9 MG/DL (0.55-1.30) Estimat Glomerular Filtration Rate > 60 mL/min (>60) Glucose Level 178 MG/DL (74-106) H Calcium Level 8.3 MG/DL (8.5-10.1) L Objective HEAD AND NECK: No JVD. NG tube LUNGS: Coarse rhonchi. CARDIOVASCULAR: Regular S1, S2 with no gallop. ABDOMEN: Soft. EXTREMITIES: No pitting edema. Srinivas Hsieh MD September 29, 2019 16:46
[2019-09-29 20:00] VITALS: BP 160/62
[2019-09-29 22:13] LABS: APPEARANCE,URINE SLIGHTLY CLOUDY; BILIRUBIN, URINE NEGATIVE (NEGATIVE); GLUCOSE, URINE (UA) NEGATIVE (NEGATIVE); KETONES,URINE NEGATIVE (NEGATIVE); LEUKOCYTE ESTERASE ,URINE 3+ (NEGATIVE); NITRITE,URINE NEGATIVE (NEGATIVE); PH,URINE 7 (4.5-8.0); PROTEIN,URINE 2+ (NEGATIVE); UROBILINOGEN,URINE 1 MG/DL (0.0-1.0)
[2019-09-29 22:15] LABS: COLOR,URINE YELLOW
--- NOTE | 2019-09-29 23:30 | Progress Note ---
SUBJECTIVE: This is an elderly female, more awake, has frothy sputum from the mouth and tolerating NG tube feeding. OBJECTIVE: VITAL SIGNS: Blood pressure 142/55, temperature 97.2, pulse 85. CHEST: Bilateral crackles. CARDIOVASCULAR: Regular rhythm. ABDOMEN: Soft. EXTREMITIES: CCE. NEUROLOGICAL: Generalized weakness. LABORATORY DATA: White counts are 22,000, hemoglobin 9.6. Chemistry panel, BUN 18, creatinine 0.9. ASSESSMENT AND PLAN: 1. Sepsis. 2. Dysphagia. 3. Encephalopathy. 4. Severe malnutrition. We will continue Haldol, Zyprexa. Continue antibiotic, bronchodilator treatments. Sher Carrillo M.D. DR: TAMAR JOB#: [id number] CC:
[2019-09-30] VITALS: BP 154/65
[2019-09-30 04:00] VITALS: BP 152/70
[2019-09-30 08:00] VITALS: BP 140/67
[2019-09-30] MEDS: OLANZapine 2.5mg tab ORAL SCH (09:49)
--- NOTE | 2019-09-30 09:49 | Infectious Diseases Prog Note ---
Assessment/Plan Assessment/Plan antibiotics ; zosyn A 1. Pneumonia COVID-19 test negative x 2 2. Hypertension. 3. Dementia. 4. Renal failure improving 5. leucocytosis increased P 1. d/c Zosyn 2. start meropenem 3. UA and urine culture 4. We will follow up cultures Subjective ROS Limited/Unobtainable: Yes Allergies: Coded Allergies: No Known Allergies (Unverified , 09/23/19) Objective Vital Signs Last 24 Hour Vital Signs Date Time Temp Pulse Resp B/P (MAP) Pulse Ox O2 Delivery O2 Flow Rate FiO2 09/30/19 08:00 97.0 90 18 140/67 (91) 92 09/30/19 04:00 97.7 83 24 152/70 (97) 100 09/30/19 00:00 97.7 105 26 154/65 (94) 100 09/29/19 21:00 Nasal Cannula 2.0 09/29/19 20:00 97.2 97 24 160/62 (94) 99 09/29/19 16:00 97.9 87 19 149/55 (86) 95 09/29/19 12:00 85 09/29/19 12:00 97.5 92 20 142/55 (84) 96 Height (Feet): 5 Height (Inches): 2.00 Weight (Pounds): 124 Respiratory/Chest: lungs clear Cardiovascular: normal rate, regular rhythm, no gallop/murmur Abdomen: soft, non tender Extremities: no edema Laboratory Tests Test 09/29/19 21:40 Urine Color Yellow Urine Appearance Slightly cloudy Urine pH 7 (4.5-8.0) Urine Specific [place] 1.010 (1.005-1.035) Urine Protein 2+ (NEGATIVE) H Urine Glucose (UA) Negative (NEGATIVE) Urine Ketones Negative (NEGATIVE) Urine Blood 3+ (NEGATIVE) H Urine Nitrite Negative (NEGATIVE) Urine Bilirubin Negative (NEGATIVE) Urine Urobilinogen 1 MG/DL (0.0-1.0) H Urine Leukocyte Esterase 3+ (NEGATIVE) H Urine RBC 2-4 /HPF (0 - 2) H Urine WBC 15-20 /HPF (0 - 2) H Urine Squamous Epithelial Cells Moderate /LPF (NONE/OCC) H Urine Bacteria Moderate /HPF (NONE) H Current Medications Medications (Trade) Dose Ordered Sig/Naya Route PRN Reason Start Time Stop Time Status Last Admin Dose Admin Acetaminophen (Tylenol) 650 mg Q6H PRN ORAL For Headache 09/29/19 14:05 10/24/19 14:04 Diphenhydramine HCl (Benadryl) 50 mg Q6H PRN IVP Itching 09/29/19 14:05 10/24/19 14:04 Haloperidol Lactate (Haldol) 5 mg Q6H PRN IM Agitation 09/29/19 14:06 11/09/19 14:05 Olanzapine (ZyPREXA) 2.5 mg DAILY ORAL 09/30/19 09:00 11/10/19 08:59 Olanzapine (ZyPREXA) 5 mg BEDTIME ORAL 09/29/19 21:00 11/10/19 20:59 09/29/19 21:29 Ondansetron HCl (Zofran) 4 mg Q6H PRN IVP Nausea & Vomiting 09/29/19 14:06 10/24/19 14:05 Mazin Skinner MD September 30, 2019 09:49
--- NOTE | 2019-09-30 10:26 | Pulmonology Progress Note ---
Subjective ROS Limited/Unobtainable: Yes Interval Events: None new; labs reviewed Constitutional: Denies: fever HEENT: Repors: no symptoms Respiratory: Reports: no symptoms Cardiovascular: Reports: no symptoms Gastrointestinal/Abdominal: Reports: no symptoms Genitourinary: Reports: no symptoms Neurologic: Reports: no symptoms Allergies: Coded Allergies: No Known Allergies (Unverified , 09/23/19) Objective Last 24 Hour Vital Signs Date Time Temp Pulse Resp B/P (MAP) Pulse Ox O2 Delivery O2 Flow Rate FiO2 09/30/19 09:00 Nasal Cannula 2.0 09/30/19 08:00 97.0 90 18 140/67 (91) 92 09/30/19 04:00 97.7 83 24 152/70 (97) 100 09/30/19 00:00 97.7 105 26 154/65 (94) 100 09/29/19 21:00 Nasal Cannula 2.0 09/29/19 20:00 97.2 97 24 160/62 (94) 99 09/29/19 16:00 97.9 87 19 149/55 (86) 95 09/29/19 12:00 85 09/29/19 12:00 97.5 92 20 142/55 (84) 96 Intake and Output 09/29/19 09/30/19 19:00 07:00 Output Total 500 ml Balance -500 ml Output Urine Total 500 ml # Bowel Movements 1 1 General Appearance: no acute distress HEENT: normocephalic Respiratory: chest wall non-tender, lungs clear Cardiovascular: normal peripheral pulses Abdomen: normal bowel sounds Laboratory Tests 09/29/19 21:40: Urine Color Yellow, Urine Appearance Slightly cloudy, Urine pH 7, Urine Specific [place] 1.010, Urine Protein 2+H, Urine Glucose (UA) Negative, Urine Ketones Negative, Urine Blood 3+H, Urine Nitrite Negative, Urine Bilirubin Negative, Urine Urobilinogen 1H, Urine Leukocyte Esterase 3+H, Urine RBC 2-4H, Urine WBC 15-20H, Urine Squamous Epithelial Cells ModerateH, Urine Bacteria ModerateH Current Medications Medications (Trade) Dose Ordered Sig/Naya Route PRN Reason Start Time Stop Time Status Last Admin Dose Admin Acetaminophen (Tylenol) 650 mg Q6H PRN ORAL For Headache 09/29/19 14:05 10/24/19 14:04 Diphenhydramine HCl (Benadryl) 50 mg Q6H PRN IVP Itching 09/29/19 14:05 10/24/19 14:04 Haloperidol Lactate (Haldol) 5 mg Q6H PRN IM Agitation 09/29/19 14:06 11/09/19 14:05 Meropenem 500 mg/ Sodium Chloride 55 ml @ 110 mls/hr EVERY 8 HOURS IVPB 09/30/19 11:00 10/05/19 10:59 Olanzapine (ZyPREXA) 2.5 mg DAILY ORAL 09/30/19 09:00 11/10/19 08:59 09/30/19 09:49 Olanzapine (ZyPREXA) 5 mg BEDTIME ORAL 09/29/19 21:00 11/10/19 20:59 09/29/19 21:29 Ondansetron HCl (Zofran) 4 mg Q6H PRN IVP Nausea & Vomiting 09/29/19 14:06 10/24/19 14:05 Assessment/Plan Assessment/Plan IMPRESSION: 1. Marked leukocytosis. WBC 22K yesterday 2. Hypoxemia. On supplemental o2; improved. 3. COPD. 4. [facility]iary resident. 5. Schizophrenia. 6. Dementia. 7. Hypernatremia; better; now normal DISCUSSION: Agree with empiric antibiotics. Do not suspect COVID-19; pcr x 2 is negative Continue current medications and care. I will follow carefully as pulmonary customer service and sales consultant. Currently saturating well on low flow O2 Hypernatremic; off hypotonic fluids Decreased free water to 250 ml q 6 Check labs AM Discussed with ID David Villanueva M.D. David Villanueva MD September 30, 2019 10:25
--- NOTE | 2019-09-30 10:28 | Diagnostic Imaging Report ---
EXAM: XR Chest, 1 View CLINICAL HISTORY: Shortness of breath TECHNIQUE: Frontal view of the chest. COMPARISON: September 23, 2019. FINDINGS: The distal tip of the enteric tube within the stomach. Cardiac silhouette and pulmonary vascularity are within normal limits allowing for portable technique. Interval development of left lower lobe infiltrates and small left effusion. Senescent changes. IMPRESSION: Interval development of left lower lobe pneumonia and small left effusion. <MYCVCSECTION> Communications: 09/30/19 10:52 Verify Receipt with Nurse Verified receipt with JUAN MIGUEL De in [facility] for JUAN MIGUEL [place] on 09/29 10:52 (-07:00)
--- NOTE | 2019-09-30 11:22 | Surgery Progress Note ---
Surgery Progress Note Subjective Symptoms: improved, tolerating diet, voiding well, passing flatus Objective Last 24 Hour Vital Signs Date Time Temp Pulse Resp B/P (MAP) Pulse Ox O2 Delivery O2 Flow Rate FiO2 09/30/19 09:00 Nasal Cannula 2.0 09/30/19 08:00 97.0 90 18 140/67 (91) 92 09/30/19 04:00 97.7 83 24 152/70 (97) 100 09/30/19 00:00 97.7 105 26 154/65 (94) 100 09/29/19 21:00 Nasal Cannula 2.0 09/29/19 20:00 97.2 97 24 160/62 (94) 99 09/29/19 16:00 97.9 87 19 149/55 (86) 95 09/29/19 12:00 85 09/29/19 12:00 97.5 92 20 142/55 (84) 96 I&O Intake and Output 09/29/19 09/30/19 19:00 07:00 Output Total 500 ml Balance -500 ml Output Urine Total 500 ml # Bowel Movements 1 1 Dressing: dry Wound: clean Cardiovascular: RSR Respiratory: clear, decreased breath sounds Abdomen: soft, non-tender, present bowel sounds Extremities: no cyanosis Laboratory Tests Test 09/29/19 21:40 Urine Color Yellow Urine Appearance Slightly cloudy Urine pH 7 (4.5-8.0) Urine Specific [place] 1.010 (1.005-1.035) Urine Protein 2+ (NEGATIVE) H Urine Glucose (UA) Negative (NEGATIVE) Urine Ketones Negative (NEGATIVE) Urine Blood 3+ (NEGATIVE) H Urine Nitrite Negative (NEGATIVE) Urine Bilirubin Negative (NEGATIVE) Urine Urobilinogen 1 MG/DL (0.0-1.0) H Urine Leukocyte Esterase 3+ (NEGATIVE) H Urine RBC 2-4 /HPF (0 - 2) H Urine WBC 15-20 /HPF (0 - 2) H Urine Squamous Epithelial Cells Moderate /LPF (NONE/OCC) H Urine Bacteria Moderate /HPF (NONE) H Plan Problems: (1) Decubitus skin ulcer Assessment & Plan: Pt presented on admission with Multiple Pressure injuries. Unstageable Sacral Pressure injury(L)9.5cm x (W)11cm. Base of wound is 75% necrotic 25% mixed slough and erythema. Periwound is indurated with non- blanchable erythema. No odor or exudate noted. Additional open wound in close proximity noted to lower R cleft of buttocks. DTPI Noted to R heel and lateral R heel. Base of wound is fluctuant, purple with maroon borders.(L)7.5cm x (W)11cm.Periwound is blanchable but boggy. DTPI L heel and Lateral aspect. Base of wound is maroon and fluctuant. (L)6.5cm x (W)9.5cm. Periwound is blanchable but boggy. DTPI L 1st Metatarsal Head. Base of wound is fluctuant,purple with surrounding maroon borders.(L)2.5cm x (W)1.5cm. Non-blanching erythema without fluctuance noted to R 1st metatarsal head. Tx.Plan: Cleanse Sacral wound with Saline. Apply Therahoney impregnated Kerlix. Apply Moisture Barrier Paste periwound. Cover with Optifoam drsg. Daily and prn. Apply Cavilon Skin Barrier to R and L Heels. Cover each heel with Optifoam drsg.Change every 7 days and prn. Apply Cavilon Skin Barrier to R and L 1st Metatarsals Daily and prn. Reposition at least every 2hoours or as tolerated. Place Pillow between Knees. Off-load heels with Pillow. APM/KEYONA Mattress overlay. (2) Sepsis Assessment & Plan: leukocytosis, abnormal labs low grade fever COVID eval necessary shelter patient respiratory support nutrition Urine with UTI pending micro wounds no gross infection rx as written on abx trend labs will follow with recs (3) Suspected 2019 novel coronavirus infection (4) Respiratory distress (5) Failure to thrive Assessment & Plan: DAILY ESTIMATED NEEDS: Needs based on Sepsis 54.5kg 25-35 kcals/kg 2041-6287 total kcals 1-2 g protein/kg 55-109 g total protein 25-30ml/kcal mL/kg 1183-3912 total fluid mLs NUTRITION DIAGNOSIS: Increased kcal and pro needs r/t sepsis and wound healing as evidenced by pt adm w/ critically elev WBC, open sacral/ buttock wound, eval pending. CURRENT DIET: NPO PO DIET RECOMMENDATIONS: Liberalized Regular diet/ texture per HEAD OF ICT ENTERAL NUTRITION RECOMMENDATIONS: Glucerna 1.5 @40ml/hr x24 hrs to provide 960ml, 1440 kcal, 79g pro, 729ml free H2O - If part of POC, rec to obtain GI access, initiate non oral TFs. - Start Glucerna 1.5 @10ml/hr for 6hrs. Advance as tolerated 10ml/hr q4-6 hrs to goal. - Flush per MD/ HOB over 30 degreed ADDITIONAL RECOMMENDATIONS: 1) With diet order: add BEAN BID. F/up with WC eval 2) Maintain calibrated bed scale wts 3) HEAD OF ICT eval for oral diet 4) monitor hydration status 5) Glucerna TID w/ meals for oral diet Sundeep Howard September 30, 2019 11:22
[2019-09-30] MEDS: Meropenem 500 MG in NS 55 ML IVPB SCH ×2 (11:27→21:10)
[2019-09-30 12:00] VITALS: BP 156/98
--- NOTE | 2019-09-30 13:38 | Cardiac Electrophysiology PN ---
Assessment/Plan Assessment/Plan 1.Sinus bradycardia off any KERR or AVN blockers. Not hypothyroid. May have sick sinus syndrome. 2. History of hypertension. Off antihypertensive agents. 3. 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 Further evaluation by Dr. Howard. 4. Sepsis and leukocytosis. WBC decreasing on Abx 5. Rule out COVID. 6. Dementia and psychosis. DW RN Subjective Subjective No further riki reported. Confused in restraints with NGT feeding ongoing. Objective Last 24 Hour Vital Signs Date Time Temp Pulse Resp B/P (MAP) Pulse Ox O2 Delivery O2 Flow Rate FiO2 09/30/19 12:00 97.5 112 19 156/98 (117) 98 09/30/19 09:00 Nasal Cannula 2.0 09/30/19 08:00 97.0 90 18 140/67 (91) 92 09/30/19 04:00 97.7 83 24 152/70 (97) 100 09/30/19 00:00 97.7 105 26 154/65 (94) 100 09/29/19 21:00 Nasal Cannula 2.0 09/29/19 20:00 97.2 97 24 160/62 (94) 99 09/29/19 16:00 97.9 87 19 149/55 (86) 95 Intake and Output 09/29/19 09/30/19 19:00 07:00 Output Total 500 ml Balance -500 ml Output Urine Total 500 ml # Bowel Movements 1 1 Laboratory Tests Test 09/29/19 21:40 Urine Color Yellow Urine Appearance Slightly cloudy Urine pH 7 (4.5-8.0) Urine Specific [place] 1.010 (1.005-1.035) Urine Protein 2+ (NEGATIVE) H Urine Glucose (UA) Negative (NEGATIVE) Urine Ketones Negative (NEGATIVE) Urine Blood 3+ (NEGATIVE) H Urine Nitrite Negative (NEGATIVE) Urine Bilirubin Negative (NEGATIVE) Urine Urobilinogen 1 MG/DL (0.0-1.0) H Urine Leukocyte Esterase 3+ (NEGATIVE) H Urine RBC 2-4 /HPF (0 - 2) H Urine WBC 15-20 /HPF (0 - 2) H Urine Squamous Epithelial Cells Moderate /LPF (NONE/OCC) H Urine Bacteria Moderate /HPF (NONE) H Objective HEAD AND NECK: No JVD. NG tube LUNGS: Coarse rhonchi. CARDIOVASCULAR: Regular S1, S2 with no gallop. ABDOMEN: Soft. EXTREMITIES: No pitting edema. Srinivas Hsieh MD September 30, 2019 13:38
[2019-09-30 16:00] VITALS: BP 157/75
--- NOTE | 2019-09-30 17:15 | Progress Note ---
DATE: 09/30/2019 SUBJECTIVE: This is an 89-year-old female came to the emergency room for sepsis, pneumonia, failure to thrive. Patient has poor IV access. Patient possibly needs a PICC line or midline. She is more awake, alert. Also ordering swallow evaluation. OBJECTIVE: VITAL SIGNS: Blood pressure 156/98, pulse 112, respirations 19, no fever. HEENT: NAD. CHEST: Bilateral decreased breath sounds. CARDIOVASCULAR: Regular rhythm. No gallop. No murmur. ABDOMEN: Soft. EXTREMITIES: CCE. NEUROLOGICAL: Patient has generalized weakness. LABORATORY DATA: White counts are 22,000. MICROBIOLOGY: So far COVID test is not detected. ASSESSMENT: 1. Sepsis. 2. Aspiration pneumonia. 3. Dysphagia. 4. Failure to thrive. PLAN: We will currently continue meropenem. Continue Zyprexa. Continue NG tube feeding. Possibly needs a PICC line or midline tomorrow for antibiotics. Check CBC, CMP. Sher Carrillo M.D. DR: CRISTOPHER JOB#: [id number] CC:
[2019-09-30 20:00] VITALS: BP 164/77
[2019-10-01] VITALS: BP 157/88
[2019-10-01 04:00] VITALS: BP 142/69
[2019-10-01] MEDS: Meropenem 500 MG in NS 55 ML IVPB SCH ×3 (05:50→21:48)
[2019-10-01 06:35] LABS: HEMATOCRIT 31.7 % (37.0-47.0); HEMOGLOBIN 10.5 G/DL (12.0-16.0); MEAN CORPUSCULAR VOLUME 86 FL (80-99); PLATELET COUNT 291 K/UL (150-450); RED BLOOD COUNT 3.69 M/UL (4.20-5.40); WHITE BLOOD COUNT 18.5 K/UL (4.8-10.8)
[2019-10-01 06:46] LABS: ANION GAP 4 mmol/L (5-15); BLOOD UREA NITROGEN 20 mg/dL (7-18); CALCIUM 8.7 MG/DL (8.5-10.1); CARBON DIOXIDE 32 MMOL/L (21-32); CHLORIDE 101 MMOL/L (98-107); CREATININE 0.8 MG/DL (0.55-1.30); POTASSIUM 4.4 MMOL/L (3.5-5.1); SODIUM 137 MMOL/L (136-145)
[2019-10-01 08:00] VITALS: BP 131/76
--- NOTE | 2019-10-01 09:51 | Surgery Progress Note ---
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 not sure if safe for swallow. ? GI for peg eval will await swallow eval study. diet vs tube feeds picc for abx thank you Objective Last 24 Hour Vital Signs Date Time Temp Pulse Resp B/P (MAP) Pulse Ox O2 Delivery O2 Flow Rate FiO2 10/01/19 04:00 97.5 94 24 142/69 (93) 95 10/01/19 00:00 97.7 109 22 157/88 (111) 95 09/30/19 21:26 Nasal Cannula 2.0 09/30/19 20:00 97.9 103 22 164/77 (106) 95 09/30/19 16:00 97.5 97 18 157/75 (102) 95 09/30/19 12:00 97.5 112 19 156/98 (117) 98 I&O Intake and Output 09/30/19 10/01/19 18:59 06:59 Intake Total 730 ml 490 ml Output Total 2400 ml Balance 730 ml -1910 ml Intake Free Water 250 ml 450 ml Tube Feeding 480 ml 40 ml Output Urine Total 2400 ml # Bowel Movements 1 3 Dressing: other Wound: other Drains: other Cardiovascular: RSR Respiratory: decreased breath sounds Abdomen: soft, non-tender, present bowel sounds Extremities: no tenderness, no cyanosis Laboratory Tests Test 10/01/19 05:40 White Blood Count 18.5 K/UL (4.8-10.8) H Red Blood Count 3.69 M/UL (4.20-5.40) L Hemoglobin 10.5 G/DL (12.0-16.0) L Hematocrit 31.7 % (37.0-47.0) L Mean Corpuscular Volume 86 FL (80-99) Mean Corpuscular Hemoglobin 28.4 PG (27.0-31.0) Mean Corpuscular Hemoglobin Concent 33.1 G/DL (32.0-36.0) Red Cell Distribution Width 13.0 % (11.6-14.8) Platelet Count 291 K/UL (150-450) Mean Platelet Volume 5.9 FL (6.5-10.1) L Neutrophils (%) (Auto) % (45.0-75.0) Lymphocytes (%) (Auto) % (20.0-45.0) Monocytes (%) (Auto) % (1.0-10.0) Eosinophils (%) (Auto) % (0.0-3.0) Basophils (%) (Auto) % (0.0-2.0) Differential Total Cells Counted 100 Neutrophils % (Manual) 89 % (45-75) H Lymphocytes % (Manual) 3 % (20-45) L Monocytes % (Manual) 8 % (1-10) Eosinophils % (Manual) 0 % (0-3) Basophils % (Manual) 0 % (0-2) Band Neutrophils 0 % (0-8) Platelet Estimate Adequate Platelet Morphology Normal Sodium Level 137 MMOL/L (136-145) Potassium Level 4.4 MMOL/L (3.5-5.1) Chloride Level 101 MMOL/L (98-107) Carbon Dioxide Level 32 MMOL/L (21-32) Anion Gap 4 mmol/L (5-15) L Blood Urea Nitrogen 20 mg/dL (7-18) H Creatinine 0.8 MG/DL (0.55-1.30) Estimat Glomerular Filtration Rate > 60 mL/min (>60) Glucose Level 136 MG/DL (74-106) H Calcium Level 8.7 MG/DL (8.5-10.1) Plan Problems: (1) Decubitus skin ulcer Assessment & Plan: Pt presented on admission with Multiple Pressure injuries. Unstageable Sacral Pressure injury(L)9.5cm x (W)11cm. Base of wound is 75% necrotic 25% mixed slough and erythema. Periwound is indurated with non- blanchable erythema. No odor or exudate noted. Additional open wound in close proximity noted to lower R cleft of buttocks. DTPI Noted to R heel and lateral R heel. Base of wound is fluctuant, purple with maroon borders.(L)7.5cm x (W)11cm.Periwound is blanchable but boggy. DTPI L heel and Lateral aspect. Base of wound is maroon and fluctuant. (L)6.5cm x (W)9.5cm. Periwound is blanchable but boggy. DTPI L 1st Metatarsal Head. Base of wound is fluctuant,purple with surrounding maroon borders.(L)2.5cm x (W)1.5cm. Non-blanching erythema without fluctuance noted to R 1st metatarsal head. Tx.Plan: Cleanse Sacral wound with Saline. Apply Therahoney impregnated Kerlix. Apply Moisture Barrier Paste periwound. Cover with Optifoam drsg. Daily and prn. Apply Cavilon Skin Barrier to R and L Heels. Cover each heel with Optifoam drsg.Change every 7 days and prn. Apply Cavilon Skin Barrier to R and L 1st Metatarsals Daily and prn. Reposition at least every 2hoours or as tolerated. Place Pillow between Knees. Off-load heels with Pillow. APM/KEYONA Mattress overlay. (2) Sepsis Assessment & Plan: leukocytosis, abnormal labs low grade fever COVID eval necessary long-term patient respiratory support nutrition Urine with UTI pending micro wounds no gross infection rx as written on abx trend labs will follow with recs improving needs repeat swallow eval cont ng tube feed nutrition for now picc for abx (3) Suspected 2019 novel coronavirus infection (4) Respiratory distress (5) Failure to thrive Assessment & Plan: DAILY ESTIMATED NEEDS: Needs based on Sepsis 54.5kg 25-35 kcals/kg 3257-3411 total kcals 1-2 g protein/kg 55-109 g total protein 25-30ml/kcal mL/kg 5520-5773 total fluid mLs NUTRITION DIAGNOSIS: Increased kcal and pro needs r/t sepsis and wound healing as evidenced by pt adm w/ critically elev WBC, open sacral/ buttock wound, eval pending. CURRENT DIET: NPO PO DIET RECOMMENDATIONS: Liberalized Regular diet/ texture per CAVITY PUMP OPERATOR ENTERAL NUTRITION RECOMMENDATIONS: Glucerna 1.5 @40ml/hr x24 hrs to provide 960ml, 1440 kcal, 79g pro, 729ml free H2O - If part of POC, rec to obtain GI access, initiate non oral TFs. - Start Glucerna 1.5 @10ml/hr for 6hrs. Advance as tolerated 10ml/hr q4-6 hrs to goal. - Flush per MD/ HOB over 30 degreed ADDITIONAL RECOMMENDATIONS: 1) With diet order: add BEAN BID. F/up with WC eval 2) Maintain calibrated bed scale wts 3) CAVITY PUMP OPERATOR eval for oral diet 4) monitor hydration status 5) Glucerna TID w/ meals for oral diet Sundeep Howard October 01, 2019 09:51
[2019-10-01] MEDS: OLANZapine 2.5mg tab ORAL SCH (09:55)
--- NOTE | 2019-10-01 10:02 | Pulmonology Progress Note ---
Subjective ROS Limited/Unobtainable: Yes Interval Events: None new; labs reviewed Constitutional: Denies: fever HEENT: Repors: no symptoms Respiratory: Reports: no symptoms Cardiovascular: Reports: no symptoms Gastrointestinal/Abdominal: Reports: no symptoms Genitourinary: Reports: no symptoms Neurologic: Reports: no symptoms Allergies: Coded Allergies: No Known Allergies (Unverified , 09/23/19) Objective Last 24 Hour Vital Signs Date Time Temp Pulse Resp B/P (MAP) Pulse Ox O2 Delivery O2 Flow Rate FiO2 10/01/19 04:00 97.5 94 24 142/69 (93) 95 10/01/19 00:00 97.7 109 22 157/88 (111) 95 09/30/19 21:26 Nasal Cannula 2.0 09/30/19 20:00 97.9 103 22 164/77 (106) 95 09/30/19 16:00 97.5 97 18 157/75 (102) 95 09/30/19 12:00 97.5 112 19 156/98 (117) 98 Intake and Output 09/30/19 10/01/19 19:00 07:00 Intake Total 730 ml 200 ml Output Total 2400 ml Balance 730 ml -2200 ml Intake Free Water 250 ml 200 ml Tube Feeding 480 ml Output Urine Total 2400 ml # Bowel Movements 1 3 General Appearance: no acute distress HEENT: normocephalic Respiratory: chest wall non-tender, lungs clear Cardiovascular: normal peripheral pulses Abdomen: normal bowel sounds Microbiology Date/Time Source Procedure Growth Status 09/29/19 21:40 Urine,Clean Catch Urine Culture - Preliminary NO GROWTH AFTER 24 HOURS Resulted Laboratory Tests 10/01/19 05:40: White Blood Count 18.5H, Red Blood Count 3.69L, Hemoglobin 10.5L, Hematocrit 31.7L, Mean Corpuscular Volume 86, Mean Corpuscular Hemoglobin 28.4, Mean Corpuscular Hemoglobin Concent 33.1, Red Cell Distribution Width 13.0, Platelet Count 291, Mean Platelet Volume 5.9L, Neutrophils (%) (Auto) , Lymphocytes (%) ( Auto) , Monocytes (%) (Auto) , Eosinophils (%) (Auto) , Basophils (%) (Auto) , Differential Total Cells Counted 100, Neutrophils % (Manual) 89H, Lymphocytes % (Manual) 3L, Monocytes % (Manual) 8, Eosinophils % (Manual) 0, Basophils % ( Manual) 0, Band Neutrophils 0, Platelet Estimate Adequate, Platelet Morphology Normal, Sodium Level 137, Potassium Level 4.4, Chloride Level 101, Carbon Dioxide Level 32, Anion Gap 4L, Blood Urea Nitrogen 20H, Creatinine 0.8, Estimat Glomerular Filtration Rate > 60, Glucose Level 136H, Calcium Level 8.7 Current Medications Medications (Trade) Dose Ordered Sig/Naya Route PRN Reason Start Time Stop Time Status Last Admin Dose Admin Acetaminophen (Tylenol) 650 mg Q6H PRN ORAL For Headache 09/29/19 14:05 10/24/19 14:04 Diphenhydramine HCl (Benadryl) 50 mg Q6H PRN IVP Itching 09/29/19 14:05 10/24/19 14:04 Haloperidol Lactate (Haldol) 5 mg Q6H PRN IM Agitation 09/29/19 14:06 11/09/19 14:05 Meropenem 500 mg/ Sodium Chloride 55 ml @ 110 mls/hr EVERY 8 HOURS IVPB 09/30/19 11:00 10/05/19 10:59 10/01/19 05:50 Olanzapine (ZyPREXA) 2.5 mg DAILY ORAL 09/30/19 09:00 11/10/19 08:59 09/30/19 09:49 Olanzapine (ZyPREXA) 5 mg BEDTIME ORAL 09/29/19 21:00 11/10/19 20:59 09/30/19 21:10 Ondansetron HCl (Zofran) 4 mg Q6H PRN IVP Nausea & Vomiting 09/29/19 14:06 10/24/19 14:05 Assessment/Plan Assessment/Plan IMPRESSION: 1. Marked leukocytosis. WBC 18K now 2. Hypoxemia. On supplemental O2; improved. 3. COPD. 4. group home resident. 5. Schizophrenia. 6. Dementia. 7. Hypernatremia; better; now normal DISCUSSION: Agree with empiric antibiotics. Do not suspect COVID-19; pcr x 2 is negative Continue current medications and care. I will follow carefully as pulmonary internet consultant. Currently saturating well on low flow O2 Hypernatremic; off hypotonic fluids Decreased free water to 250 ml q 6 I will follow Discussed with ID Neha Beverly Omar Syed MD October 01, 2019 10:02
--- NOTE | 2019-10-01 10:49 | Infectious Diseases Prog Note ---
Assessment/Plan Assessment/Plan antibiotics ; meropenem A 1. Pneumonia COVID-19 test negative x 2 2. Hypertension. 3. Dementia. 4. Renal failure improving 5. leucocytosis improving P 1. continue meropenem 2. We will follow up cultures Subjective ROS Limited/Unobtainable: Yes Allergies: Coded Allergies: No Known Allergies (Unverified , 09/23/19) Objective Vital Signs Last 24 Hour Vital Signs Date Time Temp Pulse Resp B/P (MAP) Pulse Ox O2 Delivery O2 Flow Rate FiO2 10/01/19 10:24 Nasal Cannula 2.0 10/01/19 08:00 97.0 109 20 131/76 (94) 98 10/01/19 04:00 97.5 94 24 142/69 (93) 95 10/01/19 00:00 97.7 109 22 157/88 (111) 95 09/30/19 21:26 Nasal Cannula 2.0 09/30/19 20:00 97.9 103 22 164/77 (106) 95 09/30/19 16:00 97.5 97 18 157/75 (102) 95 09/30/19 12:00 97.5 112 19 156/98 (117) 98 Height (Feet): 5 Height (Inches): 2.00 Weight (Pounds): 124 Respiratory/Chest: lungs clear Cardiovascular: normal rate, regular rhythm, no gallop/murmur Abdomen: soft, non tender Extremities: no edema Microbiology Date/Time Source Procedure Growth Status 09/29/19 21:40 Urine,Clean Catch Urine Culture - Preliminary NO GROWTH AFTER 24 HOURS Resulted Laboratory Tests Test 10/01/19 05:40 White Blood Count 18.5 K/UL (4.8-10.8) H Red Blood Count 3.69 M/UL (4.20-5.40) L Hemoglobin 10.5 G/DL (12.0-16.0) L Hematocrit 31.7 % (37.0-47.0) L Mean Corpuscular Volume 86 FL (80-99) Mean Corpuscular Hemoglobin 28.4 PG (27.0-31.0) Mean Corpuscular Hemoglobin Concent 33.1 G/DL (32.0-36.0) Red Cell Distribution Width 13.0 % (11.6-14.8) Platelet Count 291 K/UL (150-450) Mean Platelet Volume 5.9 FL (6.5-10.1) L Neutrophils (%) (Auto) % (45.0-75.0) Lymphocytes (%) (Auto) % (20.0-45.0) Monocytes (%) (Auto) % (1.0-10.0) Eosinophils (%) (Auto) % (0.0-3.0) Basophils (%) (Auto) % (0.0-2.0) Differential Total Cells Counted 100 Neutrophils % (Manual) 89 % (45-75) H Lymphocytes % (Manual) 3 % (20-45) L Monocytes % (Manual) 8 % (1-10) Eosinophils % (Manual) 0 % (0-3) Basophils % (Manual) 0 % (0-2) Band Neutrophils 0 % (0-8) Platelet Estimate Adequate Platelet Morphology Normal Sodium Level 137 MMOL/L (136-145) Potassium Level 4.4 MMOL/L (3.5-5.1) Chloride Level 101 MMOL/L (98-107) Carbon Dioxide Level 32 MMOL/L (21-32) Anion Gap 4 mmol/L (5-15) L Blood Urea Nitrogen 20 mg/dL (7-18) H Creatinine 0.8 MG/DL (0.55-1.30) Estimat Glomerular Filtration Rate > 60 mL/min (>60) Glucose Level 136 MG/DL (74-106) H Calcium Level 8.7 MG/DL (8.5-10.1) Current Medications Medications (Trade) Dose Ordered Sig/Naya Route PRN Reason Start Time Stop Time Status Last Admin Dose Admin Acetaminophen (Tylenol) 650 mg Q6H PRN ORAL For Headache 09/29/19 14:05 10/24/19 14:04 Diphenhydramine HCl (Benadryl) 50 mg Q6H PRN IVP Itching 09/29/19 14:05 10/24/19 14:04 Haloperidol Lactate (Haldol) 5 mg Q6H PRN IM Agitation 09/29/19 14:06 11/09/19 14:05 Meropenem 500 mg/ Sodium Chloride 55 ml @ 110 mls/hr EVERY 8 HOURS IVPB 09/30/19 11:00 10/05/19 10:59 10/01/19 05:50 Olanzapine (ZyPREXA) 2.5 mg DAILY ORAL 5/25/20 09:00 11/10/19 08:59 10/01/19 09:55 Olanzapine (ZyPREXA) 5 mg BEDTIME ORAL 09/29/19 21:00 11/10/19 20:59 09/30/19 21:10 Ondansetron HCl (Zofran) 4 mg Q6H PRN IVP Nausea & Vomiting 09/29/19 14:06 10/24/19 14:05 Mazin Skinner MD October 01, 2019 10:49
--- NOTE | 2019-10-01 11:45 | Progress Note ---
DATE: 09/27/2019 SUBJECTIVE: This is an elderly female, currently in bed, nonverbal. Opens her eyes. Slightly improving. OBJECTIVE: VITAL SIGNS: Blood pressure is 120/70, pulse 84, respirations 18, no fever. HEENT: NAD. CHEST: Bilaterally clear. CARDIOVASCULAR: Regular rhythm. ABDOMEN: Soft. Positive bowel sounds. G-tube in place. EXTREMITIES: CCE. ASSESSMENT: 1. Sepsis. 2. COVID pneumonia. 3. UTI. 4. Dehydration. 5. Severe bradycardia. PLAN: Cardiology is on case. ID is on case. Continue antibiotic. Continue bronchodilator treatments. Continue G-tube feeding. Swallow eval. Sher Carrillo M.D. DR: CRISTOPHER JOB#: [id number] CC:
[2019-10-01 12:00] VITALS: BP 149/70
--- NOTE | 2019-10-01 13:34 | Cardiac Electrophysiology PN ---
Assessment/Plan Assessment/Plan 1.Sinus bradycardia off any KERR or AVN blockers. Not hypothyroid. May have sick sinus syndrome. 2. History of hypertension. Off antihypertensive agents. 3. 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 Further evaluation by Dr. Howard. 4. Sepsis and leukocytosis. WBC decreasing on Abx 5. Rule out COVID. 6. Dementia and psychosis. DW RN Subjective Subjective No further bradycardia. Confused in restraints with NGT feeding ongoing. Objective Last 24 Hour Vital Signs Date Time Temp Pulse Resp B/P (MAP) Pulse Ox O2 Delivery O2 Flow Rate FiO2 10/01/19 10:24 Nasal Cannula 2.0 10/01/19 08:00 97.0 109 20 131/76 (94) 98 10/01/19 04:00 97.5 94 24 142/69 (93) 95 10/01/19 00:00 97.7 109 22 157/88 (111) 95 09/30/19 21:26 Nasal Cannula 2.0 09/30/19 20:00 97.9 103 22 164/77 (106) 95 09/30/19 16:00 97.5 97 18 157/75 (102) 95 Intake and Output 09/30/19 10/01/19 19:00 07:00 Intake Total 730 ml 200 ml Output Total 2400 ml Balance 730 ml -2200 ml Intake Free Water 250 ml 200 ml Tube Feeding 480 ml Output Urine Total 2400 ml # Bowel Movements 1 3 Laboratory Tests Test 10/01/19 05:40 White Blood Count 18.5 K/UL (4.8-10.8) H Red Blood Count 3.69 M/UL (4.20-5.40) L Hemoglobin 10.5 G/DL (12.0-16.0) L Hematocrit 31.7 % (37.0-47.0) L Mean Corpuscular Volume 86 FL (80-99) Mean Corpuscular Hemoglobin 28.4 PG (27.0-31.0) Mean Corpuscular Hemoglobin Concent 33.1 G/DL (32.0-36.0) Red Cell Distribution Width 13.0 % (11.6-14.8) Platelet Count 291 K/UL (150-450) Mean Platelet Volume 5.9 FL (6.5-10.1) L Neutrophils (%) (Auto) % (45.0-75.0) Lymphocytes (%) (Auto) % (20.0-45.0) Monocytes (%) (Auto) % (1.0-10.0) Eosinophils (%) (Auto) % (0.0-3.0) Basophils (%) (Auto) % (0.0-2.0) Differential Total Cells Counted 100 Neutrophils % (Manual) 89 % (45-75) H Lymphocytes % (Manual) 3 % (20-45) L Monocytes % (Manual) 8 % (1-10) Eosinophils % (Manual) 0 % (0-3) Basophils % (Manual) 0 % (0-2) Band Neutrophils 0 % (0-8) Platelet Estimate Adequate Platelet Morphology Normal Sodium Level 137 MMOL/L (136-145) Potassium Level 4.4 MMOL/L (3.5-5.1) Chloride Level 101 MMOL/L (98-107) Carbon Dioxide Level 32 MMOL/L (21-32) Anion Gap 4 mmol/L (5-15) L Blood Urea Nitrogen 20 mg/dL (7-18) H Creatinine 0.8 MG/DL (0.55-1.30) Estimat Glomerular Filtration Rate > 60 mL/min (>60) Glucose Level 136 MG/DL (74-106) H Calcium Level 8.7 MG/DL (8.5-10.1) Microbiology Date/Time Source Procedure Growth Status 09/29/19 21:40 Urine,Clean Catch Urine Culture - Preliminary NO GROWTH AFTER 24 HOURS Resulted Objective HEAD AND NECK: No JVD. NG tube LUNGS: Coarse rhonchi. CARDIOVASCULAR: Regular S1, S2 with no gallop. ABDOMEN: Soft. EXTREMITIES: No pitting edema. Srinivas Hsieh MD October 01, 2019 13:33
[2019-10-01] MEDS ORDERED: Varibar Honey 250ml MC PRN (15:15)
[2019-10-01] MEDS ORDERED: Varibar Pudding 230ml MC PRN (15:15)
[2019-10-01] MEDS ORDERED: Varibar Nectar 240ml MC PRN (15:15)
[2019-10-01 16:31] VITALS: BP 134/67
[2019-10-01 20:00] VITALS: BP 146/73
--- NOTE | 2019-10-01 20:45 | Consultation ---
DATE OF CONSULTATION: 10/01/2019 CONSULTING PHYSICIAN: Shiv Rodgers MD. CHIEF COMPLAINT: Failure to thrive, dysphagia. HISTORY OF PRESENT ILLNESS: This 89-year-old female with past medical history of COPD, schizophrenia admitted to the hospital with hypoxemia. Since admission, patient has been dysphagic requiring NG tube placement for feeding. Now, the recommendation was for her to get a G-tube placement. PAST MEDICAL HISTORY: 1. COPD. 2. Schizophrenia. 3. Bradycardia in this admission. ALLERGIES: No known drug allergies. MEDICATIONS: Please see medication reconciliation list. FAMILY HISTORY: Noncontributory. REVIEW OF SYSTEMS: Unable to obtain. PHYSICAL EXAMINATION: VITAL SIGNS: Temperature is 97, pulse is 109, respirations are 20, blood pressure is 131/76. HEENT: Normocephalic, atraumatic. Mild pale conjunctivae. NECK: Supple. No evidence of obvious lymphadenopathy. CARDIOVASCULAR: Actually tachy. Regular rate. Plus S1 and S2. LUNGS: Decreased breath sounds bilaterally based on the supine exam. ABDOMEN: Soft, nontender. Hypoactive bowel sounds. No rebound. No guarding. No peritoneal sign. EXTREMITIES: No cyanosis, no clubbing, no edema. NEUROLOGIC: Nonfocal. LABORATORY DATA: White count 18.5, hemoglobin 10, hematocrit 31, platelet count is 291. Chem-7, sodium 137, potassium 4.4, BUN is 20, creatinine is 0.8, glucose is 136. ASSESSMENT AND PLAN: This is an 89-year-old female with hypoxemia, bradycardia, which is resolved, now with dysphagia with NG tube feeding and leukocytosis. Plan pending swallow evaluation for today. Speech therapy has not seen the patient yet. We will consider doing a PEG if patient fails the swallow evaluation. Meanwhile, anemia workup has been ordered. Patient also needs to be on antibiotics WBC before we place the G-tube. I want to thank Dr. Carrillo for this kind referral. Shiv Rodgers M.D. DR: ANH JOB#: [id number] CC: Sher Carrillo M.D.; Fax#: [phone]
--- NOTE | 2019-10-01 22:45 | Progress Note ---
DATE: 10/01/2019 SUBJECTIVE: This is an 89-year-old female who came with sepsis, pneumonia, UTI, dehydration. The patient has failed swallow evaluation. She is lethargic and has NG tube in place. Consider GI consult for placement. PHYSICAL EXAMINATION: VITAL SIGNS: Blood pressure 131/76, pulse 109, respirations 20s, no fever. CHEST: Bilateral decreased breath sounds. CARDIOVASCULAR: Regular rhythm. ABDOMEN: Soft. EXTREMITIES: CCE. NEUROLOGICAL: Generalized weakness. LABORATORY DATA: White counts are from 23,000 to 18,000, hemoglobin 10, hematocrit 32, platelets are 291. Chemistry panel, BUN 20 and creatinine 0.8. ASSESSMENT: 1. Sepsis. 2. Dysphagia. 3. Severe malnutrition. PLAN: The patient is COVID negative. Continue G-tube feeding. Continue wound care. Discussed with Dr. Rodgers for GI consult. Sher Carrillo M.D. DR: Matthew JOB#: [id number] CC:
[2019-10-02] VITALS: BP 156/85
--- NOTE | 2019-10-02 00:23 | Psych Consult Progress Note ---
Psychiatry Progress Note Psychiatry Progress Note Medications Current Medications Medications (Trade) Dose Ordered Sig/Naya Route PRN Reason Start Time Stop Time Status Last Admin Dose Admin Acetaminophen (Tylenol) 650 mg Q6H PRN ORAL For Headache 09/29/19 14:05 10/24/19 14:04 Barium Sulfate (Varibar Honey) 250 ml NOW PRN MC RAD 10/01/19 15:15 10/04/19 15:07 Barium Sulfate (Varibar [place]) 240 ml NOW PRN MC RAD 10/01/19 15:15 10/04/19 15:07 Barium Sulfate (Varibar Pudding) 230 ml NOW PRN MC RAD 10/01/19 15:15 10/04/19 15:07 Diphenhydramine HCl (Benadryl) 50 mg Q6H PRN IVP Itching 09/29/19 14:05 10/24/19 14:04 Haloperidol Lactate (Haldol) 5 mg Q6H PRN IM Agitation 09/29/19 14:06 11/09/19 14:05 Meropenem 500 mg/ Sodium Chloride 55 ml @ 110 mls/hr EVERY 8 HOURS IVPB 09/30/19 11:00 10/05/19 10:59 10/01/19 21:48 Olanzapine (ZyPREXA) 2.5 mg DAILY ORAL 09/30/19 09:00 11/10/19 08:59 10/01/19 09:55 Olanzapine (ZyPREXA) 5 mg BEDTIME ORAL 09/29/19 21:00 11/10/19 20:59 10/01/19 20:42 Ondansetron HCl (Zofran) 4 mg Q6H PRN IVP Nausea & Vomiting 09/29/19 14:06 10/24/19 14:05 Allergies: Coded Allergies: No Known Allergies (Unverified , 09/23/19) Objective Data Height (Feet): 5 Height (Inches): 2.00 Weight (Pounds): 124 Assessment/Plan Assessment/Plan: ASSESSMENT: [place] I Dementia. Schizophrenia. PLAN: 1. Zyprexa that will stimulate her appetite as well. 2. Bilateral soft restraints. 3. Haldol IM p.r.n. 4. Continue to readjust the medications. John Vanegas MD October 02, 2019 00:23
[2019-10-02 04:49] VITALS: BP 158/80
[2019-10-02] MEDS: Meropenem 500 MG in NS 55 ML IVPB SCH ×2 (05:20→17:56)
[2019-10-02 07:09] LABS: PHOSPHORUS 4.1 MG/DL (2.5-4.9)
[2019-10-02 07:10] LABS: % IRON SATURATION 26 % (15-50); IRON 71 ug/dL (50-175); TOTAL IRON BINDING CAPACITY 277 ug/dL (250-450)
[2019-10-02 08:00] VITALS: BP 125/88
[2019-10-02 08:25] LABS: ANION GAP 16 mmol/L (5-15); BLOOD UREA NITROGEN 24 mg/dL (7-18); CALCIUM 9.2 MG/DL (8.5-10.1); CARBON DIOXIDE 22 MMOL/L (21-32); CHLORIDE 96 MMOL/L (98-107); CREATININE 1.2 MG/DL (0.55-1.30); POTASSIUM 5.1 MMOL/L (3.5-5.1); SODIUM 134 MMOL/L (136-145)
[2019-10-02] MEDS: OLANZapine 2.5mg tab ORAL SCH (08:30)
[2019-10-02 09:10] LABS: HEMOGLOBIN 8.9 G/DL (12.0-16.0); MEAN CORPUSCULAR VOLUME 85 FL (80-99); PLATELET COUNT 302 K/UL (150-450); RED BLOOD COUNT 3.17 M/UL (4.20-5.40); RED CELL DISTRIBUTION WIDTH 12.7 % (11.6-14.8); WHITE BLOOD COUNT 14.9 K/UL (4.8-10.8)
--- NOTE | 2019-10-02 10:04 | General Progress Note ---
Assessment/Plan Assessment/Plan: 1. COPD. 2. Schizophrenia. 3. Bradycardia in this admission. 4. anemia 5. FTT swallow eval appreciated pending VAS for today NGTF for now plan PEG if needed on Monday fu H&H prn blood transfusion Subjective ROS Limited/Unobtainable: No Allergies: Coded Allergies: No Known Allergies (Unverified , 09/23/19) Objective Last 24 Hour Vital Signs Date Time Temp Pulse Resp B/P (MAP) Pulse Ox O2 Delivery O2 Flow Rate FiO2 10/02/19 08:00 97.9 100 18 125/88 (100) 97 10/02/19 04:49 98.1 103 18 158/80 (106) 98 10/02/19 00:00 98.4 106 20 156/85 (108) 97 10/01/19 21:00 Nasal Cannula 2.0 10/01/19 20:00 98.2 103 20 146/73 (97) 95 10/01/19 16:31 97.0 101 20 134/67 (89) 97 10/01/19 12:00 97.0 94 20 149/70 (96) 98 10/01/19 10:24 Nasal Cannula 2.0 Intake and Output 10/01/19 10/02/19 19:00 07:00 Intake Total 680 ml 1050 ml Output Total 500 ml Balance 180 ml 1050 ml Intake Free Water 200 ml 250 ml IV Total 110 ml Tube Feeding 480 ml 440 ml Blood Product 250 ml Output Urine Total 500 ml # Voids 2 3 # Bowel Movements 2 Laboratory Tests 10/02/19 05:00: Sodium Level 134L, Potassium Level 5.1, Chloride Level 96L, Carbon Dioxide Level 22, Anion Gap 16H, Blood Urea Nitrogen 24H, Creatinine 1.2, Estimat Glomerular Filtration Rate 51.4, Glucose Level 454#H, Calcium Level 9.2, Phosphorus Level 4.1, Magnesium Level 2.1, Iron Level 71, Total Iron Binding Capacity 277, Percent Iron Saturation 26, Unsaturated Iron Binding 206, Vitamin B12 Level 936, Folate 12.8 10/02/19 08:45: White Blood Count 14.9H, Red Blood Count 3.17L, Hemoglobin 8.9L, Hematocrit 27.0L, Mean Corpuscular Volume 85, Mean Corpuscular Hemoglobin 28.1, Mean Corpuscular Hemoglobin Concent 33.0, Red Cell Distribution Width 12.7, Platelet Count 302, Mean Platelet Volume 5.5L, Neutrophils (%) (Auto) , Lymphocytes (%) ( Auto) , Monocytes (%) (Auto) , Eosinophils (%) (Auto) , Basophils (%) (Auto) , Neutrophils % (Manual) [Pending], Lymphocytes % (Manual) [Pending], Platelet Estimate [Pending], Platelet Morphology [Pending] Height (Feet): 5 Height (Inches): 2.00 Weight (Pounds): 150 General Appearance: no apparent distress EENT: normal ENT inspection Neck: supple Cardiovascular: normal rate Respiratory/Chest: decreased breath sounds Abdomen: normal bowel sounds, non tender, soft Extremities: non-tender Shiv Rodgers MD October 02, 2019 10:04
--- NOTE | 2019-10-02 10:44 | Infectious Diseases Prog Note ---
Assessment/Plan Assessment/Plan antibiotics ; meropenem A 1. Pneumonia COVID-19 test negative x 2 2. Hypertension. 3. Dementia. 4. Renal failure improving 5. leucocytosis improving P 1. continue meropenem 4 more days 2. We will follow up cultures Subjective ROS Limited/Unobtainable: Yes Allergies: Coded Allergies: No Known Allergies (Unverified , 09/23/19) Objective Vital Signs Last 24 Hour Vital Signs Date Time Temp Pulse Resp B/P (MAP) Pulse Ox O2 Delivery O2 Flow Rate FiO2 10/02/19 08:00 97.9 100 18 125/88 (100) 97 10/02/19 04:49 98.1 103 18 158/80 (106) 98 10/02/19 00:00 98.4 106 20 156/85 (108) 97 10/01/19 21:00 Nasal Cannula 2.0 10/01/19 20:00 98.2 103 20 146/73 (97) 95 10/01/19 16:31 97.0 101 20 134/67 (89) 97 10/01/19 12:00 97.0 94 20 149/70 (96) 98 Height (Feet): 5 Height (Inches): 2.00 Weight (Pounds): 150 Respiratory/Chest: lungs clear Cardiovascular: normal rate, regular rhythm, no gallop/murmur Abdomen: soft, non tender Extremities: no edema Microbiology Date/Time Source Procedure Growth Status 09/29/19 21:40 Urine,Clean Catch Urine Culture - Final NO GROWTH AFTER 48 HOURS Complete Laboratory Tests Test 10/02/19 05:00 10/02/19 08:45 Sodium Level 134 MMOL/L (136-145) L Potassium Level 5.1 MMOL/L (3.5-5.1) Chloride Level 96 MMOL/L (98-107) L Carbon Dioxide Level 22 MMOL/L (21-32) Anion Gap 16 mmol/L (5-15) H Blood Urea Nitrogen 24 mg/dL (7-18) H Creatinine 1.2 MG/DL (0.55-1.30) Estimat Glomerular Filtration Rate 51.4 mL/min (>60) Glucose Level 454 MG/DL (74-106) #H Calcium Level 9.2 MG/DL (8.5-10.1) Phosphorus Level 4.1 MG/DL (2.5-4.9) Magnesium Level 2.1 MG/DL (1.8-2.4) Iron Level 71 ug/dL (50-175) Total Iron Binding Capacity 277 ug/dL (250-450) Percent Iron Saturation 26 % (15-50) Unsaturated Iron Binding 206 ug/dL (112-346) Vitamin B12 Level 936 PG/ML (193-986) Folate 12.8 NG/ML (8.6-58.9) White Blood Count 14.9 K/UL (4.8-10.8) H Red Blood Count 3.17 M/UL (4.20-5.40) L Hemoglobin 8.9 G/DL (12.0-16.0) L Hematocrit 27.0 % (37.0-47.0) L Mean Corpuscular Volume 85 FL (80-99) Mean Corpuscular Hemoglobin 28.1 PG (27.0-31.0) Mean Corpuscular Hemoglobin Concent 33.0 G/DL (32.0-36.0) Red Cell Distribution Width 12.7 % (11.6-14.8) Platelet Count 302 K/UL (150-450) Mean Platelet Volume 5.5 FL (6.5-10.1) L Neutrophils (%) (Auto) % (45.0-75.0) Lymphocytes (%) (Auto) % (20.0-45.0) Monocytes (%) (Auto) % (1.0-10.0) Eosinophils (%) (Auto) % (0.0-3.0) Basophils (%) (Auto) % (0.0-2.0) Neutrophils % (Manual) Pending Lymphocytes % (Manual) Pending Platelet Estimate Pending Platelet Morphology Pending Current Medications Medications (Trade) Dose Ordered Sig/Naya Route PRN Reason Start Time Stop Time Status Last Admin Dose Admin Acetaminophen (Tylenol) 650 mg Q6H PRN ORAL For Headache 09/29/19 14:05 10/24/19 14:04 Barium Sulfate (Varibar [place]) 250 ml NOW PRN MC RAD 10/01/19 15:15 10/04/19 15:07 Barium Sulfate (Varibar [place]) 240 ml NOW PRN MC RAD 10/01/19 15:15 10/04/19 15:07 Barium Sulfate (Varibar Pudding) 230 ml NOW PRN MC RAD 10/01/19 15:15 10/04/19 15:07 Diphenhydramine HCl (Benadryl) 50 mg Q6H PRN IVP Itching 09/29/19 14:05 10/24/19 14:04 Haloperidol Lactate (Haldol) 5 mg Q6H PRN IM Agitation 09/29/19 14:06 11/09/19 14:05 Meropenem 500 mg/ Sodium Chloride 55 ml @ 110 mls/hr Q12H IVPB 10/02/19 18:00 10/07/19 17:59 Olanzapine (ZyPREXA) 2.5 mg DAILY ORAL 09/30/19 09:00 11/10/19 08:59 10/02/19 08:30 Olanzapine (ZyPREXA) 5 mg BEDTIME ORAL 09/29/19 21:00 11/10/19 20:59 10/01/19 20:42 Ondansetron HCl (Zofran) 4 mg Q6H PRN IVP Nausea & Vomiting 09/29/19 14:06 10/24/19 14:05 Mazin Skinner MD October 02, 2019 10:44
--- NOTE | 2019-10-02 11:22 | Pulmonology Progress Note ---
Subjective ROS Limited/Unobtainable: Yes Interval Events: None new; labs reviewed Constitutional: Denies: fever HEENT: Repors: no symptoms Respiratory: Reports: no symptoms Cardiovascular: Reports: no symptoms Gastrointestinal/Abdominal: Reports: no symptoms Genitourinary: Reports: no symptoms Neurologic: Reports: no symptoms Allergies: Coded Allergies: No Known Allergies (Unverified , 09/23/19) Objective Last 24 Hour Vital Signs Date Time Temp Pulse Resp B/P (MAP) Pulse Ox O2 Delivery O2 Flow Rate FiO2 10/02/19 09:00 Nasal Cannula 2.0 10/02/19 08:00 97.9 100 18 125/88 (100) 97 10/02/19 04:49 98.1 103 18 158/80 (106) 98 10/02/19 00:00 98.4 106 20 156/85 (108) 97 10/01/19 21:00 Nasal Cannula 2.0 10/01/19 20:00 98.2 103 20 146/73 (97) 95 10/01/19 16:31 97.0 101 20 134/67 (89) 97 10/01/19 12:00 97.0 94 20 149/70 (96) 98 Intake and Output 10/01/19 10/02/19 19:00 07:00 Intake Total 680 ml 1050 ml Output Total 500 ml Balance 180 ml 1050 ml Intake Free Water 200 ml 250 ml IV Total 110 ml Tube Feeding 480 ml 440 ml Blood Product 250 ml Output Urine Total 500 ml # Voids 2 3 # Bowel Movements 2 General Appearance: no acute distress HEENT: normocephalic Respiratory: chest wall non-tender, lungs clear Cardiovascular: normal peripheral pulses Abdomen: normal bowel sounds Microbiology Date/Time Source Procedure Growth Status 09/29/19 21:40 Urine,Clean Catch Urine Culture - Final NO GROWTH AFTER 48 HOURS Complete Laboratory Tests 10/02/19 05:00: Sodium Level 134L, Potassium Level 5.1, Chloride Level 96L, Carbon Dioxide Level 22, Anion Gap 16H, Blood Urea Nitrogen 24H, Creatinine 1.2, Estimat Glomerular Filtration Rate 51.4, Glucose Level 454#H, Calcium Level 9.2, Phosphorus Level 4.1, Magnesium Level 2.1, Iron Level 71, Total Iron Binding Capacity 277, Percent Iron Saturation 26, Unsaturated Iron Binding 206, Vitamin B12 Level 936, Folate 12.8 10/02/19 08:45: White Blood Count 14.9H, Red Blood Count 3.17L, Hemoglobin 8.9L, Hematocrit 27.0L, Mean Corpuscular Volume 85, Mean Corpuscular Hemoglobin 28.1, Mean Corpuscular Hemoglobin Concent 33.0, Red Cell Distribution Width 12.7, Platelet Count 302, Mean Platelet Volume 5.5L, Neutrophils (%) (Auto) , Lymphocytes (%) ( Auto) , Monocytes (%) (Auto) , Eosinophils (%) (Auto) , Basophils (%) (Auto) , Differential Total Cells Counted 100, Neutrophils % (Manual) 87H, Lymphocytes % (Manual) 7L, Monocytes % (Manual) 4, Eosinophils % (Manual) 2, Basophils % ( Manual) 0, Band Neutrophils 0, Platelet Estimate Adequate, Platelet Morphology Normal, Hypochromasia 1+ Current Medications Medications (Trade) Dose Ordered Sig/Naya Route PRN Reason Start Time Stop Time Status Last Admin Dose Admin Acetaminophen (Tylenol) 650 mg Q6H PRN ORAL For Headache 09/29/19 14:05 10/24/19 14:04 Barium Sulfate (Varibar [place]) 250 ml NOW PRN MC RAD 10/01/19 15:15 10/04/19 15:07 Barium Sulfate (Varibar [place]) 240 ml NOW PRN MC RAD 10/01/19 15:15 10/04/19 15:07 Barium Sulfate (Varibar [place]) 230 ml NOW PRN MC RAD 10/01/19 15:15 10/04/19 15:07 Diphenhydramine HCl (Benadryl) 50 mg Q6H PRN IVP Itching 09/29/19 14:05 10/24/19 14:04 Haloperidol Lactate (Haldol) 5 mg Q6H PRN IM Agitation 09/29/19 14:06 11/09/19 14:05 Meropenem 500 mg/ Sodium Chloride 55 ml @ 110 mls/hr Q12H IVPB 10/02/19 18:00 10/07/19 17:59 Olanzapine (ZyPREXA) 2.5 mg DAILY ORAL 09/30/19 09:00 11/10/19 08:59 10/02/19 08:30 Olanzapine (ZyPREXA) 5 mg BEDTIME ORAL 09/29/19 21:00 11/10/19 20:59 10/01/19 20:42 Ondansetron HCl (Zofran) 4 mg Q6H PRN IVP Nausea & Vomiting 09/29/19 14:06 10/24/19 14:05 Assessment/Plan Assessment/Plan IMPRESSION: 1. Marked leukocytosis. WBC improved 2. Hypoxemia. On supplemental O2; improved. 3. COPD. 4. [facility] resident. 5. Schizophrenia. 6. Dementia. 7. Hypernatremia; better; now normal DISCUSSION: Agree with empiric antibiotics. Do not suspect COVID-19; pcr x 2 is negative Continue current medications and care. I will follow carefully as pulmonary data power consultant. Currently saturating well on low flow O2 Hypernatremic; off hypotonic fluids Decreased free water to 250 ml q 6 I will follow Discussed with ID Video swallow eval today Neha Beverly Omar Syed MD October 02, 2019 11:22
[2019-10-02 12:00] VITALS: BP 149/65
[2019-10-02 16:00] VITALS: BP 134/73
--- NOTE | 2019-10-02 16:27 | Cardiac Electrophysiology PN ---
Assessment/Plan Assessment/Plan 1.Sinus bradycardia off any KERR or AVN blockers. Not hypothyroid. 2. History of hypertension. Off antihypertensive agents. 3. 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 Further evaluation by Dr. Howard. 4. Sepsis and leukocytosis. WBC decreasing on Abx 5. Rule out COVID. 6. Dementia and psychosis. JESSI RN DC today Subjective Subjective No further bradycardia.Off tele now. Confused in restraints with NGT feeding ongoing. DC in progress Objective Last 24 Hour Vital Signs Date Time Temp Pulse Resp B/P (MAP) Pulse Ox O2 Delivery O2 Flow Rate FiO2 10/02/19 12:00 97.7 86 21 149/65 (93) 97 10/02/19 09:00 Nasal Cannula 2.0 10/02/19 08:00 97.9 100 18 125/88 (100) 97 10/02/19 04:49 98.1 103 18 158/80 (106) 98 10/02/19 00:00 98.4 106 20 156/85 (108) 97 10/01/19 21:00 Nasal Cannula 2.0 10/01/19 20:00 98.2 103 20 146/73 (97) 95 10/01/19 16:31 97.0 101 20 134/67 (89) 97 Intake and Output 10/01/19 10/02/19 19:00 07:00 Intake Total 680 ml 1050 ml Output Total 500 ml Balance 180 ml 1050 ml Intake Free Water 200 ml 250 ml IV Total 110 ml Tube Feeding 480 ml 440 ml Blood Product 250 ml Output Urine Total 500 ml # Voids 2 3 # Bowel Movements 2 Laboratory Tests Test 10/02/19 05:00 10/02/19 08:45 Sodium Level 134 MMOL/L (136-145) L Potassium Level 5.1 MMOL/L (3.5-5.1) Chloride Level 96 MMOL/L (98-107) L Carbon Dioxide Level 22 MMOL/L (21-32) Anion Gap 16 mmol/L (5-15) H Blood Urea Nitrogen 24 mg/dL (7-18) H Creatinine 1.2 MG/DL (0.55-1.30) Estimat Glomerular Filtration Rate 51.4 mL/min (>60) Glucose Level 454 MG/DL (74-106) #H Calcium Level 9.2 MG/DL (8.5-10.1) Phosphorus Level 4.1 MG/DL (2.5-4.9) Magnesium Level 2.1 MG/DL (1.8-2.4) Iron Level 71 ug/dL (50-175) Total Iron Binding Capacity 277 ug/dL (250-450) Percent Iron Saturation 26 % (15-50) Unsaturated Iron Binding 206 ug/dL (112-346) Vitamin B12 Level 936 PG/ML (193-986) Folate 12.8 NG/ML (8.6-58.9) White Blood Count 14.9 K/UL (4.8-10.8) H Red Blood Count 3.17 M/UL (4.20-5.40) L Hemoglobin 8.9 G/DL (12.0-16.0) L Hematocrit 27.0 % (37.0-47.0) L Mean Corpuscular Volume 85 FL (80-99) Mean Corpuscular Hemoglobin 28.1 PG (27.0-31.0) Mean Corpuscular Hemoglobin Concent 33.0 G/DL (32.0-36.0) Red Cell Distribution Width 12.7 % (11.6-14.8) Platelet Count 302 K/UL (150-450) Mean Platelet Volume 5.5 FL (6.5-10.1) L Neutrophils (%) (Auto) % (45.0-75.0) Lymphocytes (%) (Auto) % (20.0-45.0) Monocytes (%) (Auto) % (1.0-10.0) Eosinophils (%) (Auto) % (0.0-3.0) Basophils (%) (Auto) % (0.0-2.0) Differential Total Cells Counted 100 Neutrophils % (Manual) 87 % (45-75) H Lymphocytes % (Manual) 7 % (20-45) L Monocytes % (Manual) 4 % (1-10) Eosinophils % (Manual) 2 % (0-3) Basophils % (Manual) 0 % (0-2) Band Neutrophils 0 % (0-8) Platelet Estimate Adequate Platelet Morphology Normal Hypochromasia 1+ Microbiology Date/Time Source Procedure Growth Status 09/29/19 21:40 Urine,Clean Catch Urine Culture - Final NO GROWTH AFTER 48 HOURS Complete Objective HEAD AND NECK: No JVD. NG tube LUNGS: Coarse rhonchi. CARDIOVASCULAR: Regular S1, S2 with no gallop. ABDOMEN: Soft. EXTREMITIES: No pitting edema. Srinivas Hsieh MD October 02, 2019 16:27
--- NOTE | 2019-10-02 17:44 | Surgery Progress Note ---
Surgery Progress Note Subjective Additional Comments stable discussed with FILM FLAT INSPECTOR reviewed notes agree with peg as needed Objective Last 24 Hour Vital Signs Date Time Temp Pulse Resp B/P (MAP) Pulse Ox O2 Delivery O2 Flow Rate FiO2 10/02/19 16:00 97.7 104 18 134/73 (93) 97 10/02/19 12:00 97.7 86 21 149/65 (93) 97 10/02/19 09:00 Nasal Cannula 2.0 10/02/19 08:00 97.9 100 18 125/88 (100) 97 10/02/19 04:49 98.1 103 18 158/80 (106) 98 10/02/19 00:00 98.4 106 20 156/85 (108) 97 10/01/19 21:00 Nasal Cannula 2.0 10/01/19 20:00 98.2 103 20 146/73 (97) 95 I&O Intake and Output 10/01/19 10/02/19 19:00 07:00 Intake Total 680 ml 1050 ml Output Total 500 ml Balance 180 ml 1050 ml Intake Free Water 200 ml 250 ml IV Total 110 ml Tube Feeding 480 ml 440 ml Blood Product 250 ml Output Urine Total 500 ml # Voids 2 3 # Bowel Movements 2 Dressing: other Wound: other Drains: other Cardiovascular: RSR Respiratory: decreased breath sounds Abdomen: soft, non-tender, present bowel sounds Extremities: no cyanosis Laboratory Tests Test 10/02/19 05:00 10/02/19 08:45 Sodium Level 134 MMOL/L (136-145) L Potassium Level 5.1 MMOL/L (3.5-5.1) Chloride Level 96 MMOL/L (98-107) L Carbon Dioxide Level 22 MMOL/L (21-32) Anion Gap 16 mmol/L (5-15) H Blood Urea Nitrogen 24 mg/dL (7-18) H Creatinine 1.2 MG/DL (0.55-1.30) Estimat Glomerular Filtration Rate 51.4 mL/min (>60) Glucose Level 454 MG/DL (74-106) #H Calcium Level 9.2 MG/DL (8.5-10.1) Phosphorus Level 4.1 MG/DL (2.5-4.9) Magnesium Level 2.1 MG/DL (1.8-2.4) Iron Level 71 ug/dL (50-175) Total Iron Binding Capacity 277 ug/dL (250-450) Percent Iron Saturation 26 % (15-50) Unsaturated Iron Binding 206 ug/dL (112-346) Vitamin B12 Level 936 PG/ML (193-986) Folate 12.8 NG/ML (8.6-58.9) White Blood Count 14.9 K/UL (4.8-10.8) H Red Blood Count 3.17 M/UL (4.20-5.40) L Hemoglobin 8.9 G/DL (12.0-16.0) L Hematocrit 27.0 % (37.0-47.0) L Mean Corpuscular Volume 85 FL (80-99) Mean Corpuscular Hemoglobin 28.1 PG (27.0-31.0) Mean Corpuscular Hemoglobin Concent 33.0 G/DL (32.0-36.0) Red Cell Distribution Width 12.7 % (11.6-14.8) Platelet Count 302 K/UL (150-450) Mean Platelet Volume 5.5 FL (6.5-10.1) L Neutrophils (%) (Auto) % (45.0-75.0) Lymphocytes (%) (Auto) % (20.0-45.0) Monocytes (%) (Auto) % (1.0-10.0) Eosinophils (%) (Auto) % (0.0-3.0) Basophils (%) (Auto) % (0.0-2.0) Differential Total Cells Counted 100 Neutrophils % (Manual) 87 % (45-75) H Lymphocytes % (Manual) 7 % (20-45) L Monocytes % (Manual) 4 % (1-10) Eosinophils % (Manual) 2 % (0-3) Basophils % (Manual) 0 % (0-2) Band Neutrophils 0 % (0-8) Platelet Estimate Adequate Platelet Morphology Normal Hypochromasia 1+ Plan Problems: (1) Decubitus skin ulcer Assessment & Plan: Pt presented on admission with Multiple Pressure injuries. Unstageable Sacral Pressure injury(L)9.5cm x (W)11cm. Base of wound is 75% necrotic 25% mixed slough and erythema. Periwound is indurated with non- blanchable erythema. No odor or exudate noted. Additional open wound in close proximity noted to lower R cleft of buttocks. DTPI Noted to R heel and lateral R heel. Base of wound is fluctuant, purple with maroon borders.(L)7.5cm x (W)11cm.Periwound is blanchable but boggy. DTPI L heel and Lateral aspect. Base of wound is maroon and fluctuant. (L)6.5cm x (W)9.5cm. Periwound is blanchable but boggy. DTPI L 1st Metatarsal Head. Base of wound is fluctuant,purple with surrounding maroon borders.(L)2.5cm x (W)1.5cm. Non-blanching erythema without fluctuance noted to R 1st metatarsal head. Tx.Plan: Cleanse Sacral wound with Saline. Apply Therahoney impregnated Kerlix. Apply Moisture Barrier Paste periwound. Cover with Optifoam drsg. Daily and prn. Apply Cavilon Skin Barrier to R and L Heels. Cover each heel with Optifoam drsg.Change every 7 days and prn. Apply Cavilon Skin Barrier to R and L 1st Metatarsals Daily and prn. Reposition at least every 2hoours or as tolerated. Place Pillow between Knees. Off-load heels with Pillow. APM/KEYONA Mattress overlay. (2) Sepsis Assessment & Plan: leukocytosis, abnormal labs low grade fever COVID eval necessary intermediate patient respiratory support nutrition Urine with UTI pending micro wounds no gross infection rx as written on abx trend labs will follow with recs improving needs repeat swallow eval cont ng tube feed nutrition for now picc for abx (3) Suspected 2019 novel coronavirus infection (4) Respiratory distress (5) Failure to thrive Assessment & Plan: Mild to moderate Oropharyngeal dysphagia (Level 4 on the MICHI Dysphagia Outcome Severity Scale) with increased oral prep and oropharyngeal transit times due to sensorimotor deficits compounded by cognitive -behavioral deficits (h/o dementia, lethargic, talks with trials in mouth). HIGH ASPIRATION/PENETRATION RISKS AND REDUCED SWALLOW EFFICIENCY DUE TO THE FOLLOWING COMPONENTS/DEFICITS: Oral Impairment Tongue Control Oral residue Initiation of pharyngeal swallow Pharyngeal Impairment Laryngeal elevation (LE) Anterior hyoid excursion (AHE) Epiglottic movement Late and incomplete Laryngeal vestibular closure Pharyngeal stripping wave Tongue base retraction Pharyngeal residue Decrease pharyngeal sensation THIN LIQUIDS: PAS 6 Flash trace aspiration below the vocal folds, Patient able to clear/ejected with multiple swallows. NECTAR THICK LIQUIDS: PAS 4 Radiographic evidence of flash trace penetration to the level of the vocal folds , cleared with multiple swallows. HONEY THICK & PUDDING THICK: PAS 4 Flash penetration to the level of the vocal folds, cleared with multiple swallows. Mild Esophageal Dysphagia: Noted to have trace esophageal retention with no significant retrograde flow, no obstruction to bolus flow noted. WFL cricopharyngeal opening. -Patient is a high risk for recurrent penetration and/or aspiration due to poor swallow efficiency and sensorimotor deficits. Patient also presenting as a high risk for poor PO intake, as s/p nine PO trials, Patient reports feeling lethargic and requesting to rest. Patient did not present with any significant aspiration or penetration, however , there was radiographic evidence of trace aspiration with recovery with thin liquids, flash trace penetration with recovery with nectar thick liquids, and flash trace penetration with recovery with honey thick and pudding thick liquids. - Patient presenting as a high risk for poor PO intake and recurrent penetration /aspiration with PO given Patient's advanced age, h/o FTT, Dementia, aspiration PNA; Therefore, prognosis for Patient's ability to maintain adequate nutrition/ hydration via PO intake is guarded and MD to consider alternative long-term nutrition/hydration. TRIAL TX: Patient unable to consistently follow verbal cues to multiple swallows , effortful swallow, and/or chin tuck . RECOMMENDATIONS: 1.MD to consider care home alternative method nutrition/hydration. DAILY ESTIMATED NEEDS: Needs based on Sepsis 54.5kg 25-35 kcals/kg 3211-6904 total kcals 1-2 g protein/kg 55-109 g total protein 25-30ml/kcal mL/kg 5124-1013 total fluid mLs NUTRITION DIAGNOSIS: Increased kcal and pro needs r/t sepsis and wound healing as evidenced by pt adm w/ critically elev WBC, open sacral/ buttock wound, eval pending. CURRENT DIET: NPO PO DIET RECOMMENDATIONS: Liberalized Regular diet/ texture per FILM FLAT INSPECTOR ENTERAL NUTRITION RECOMMENDATIONS: Glucerna 1.5 @40ml/hr x24 hrs to provide 960ml, 1440 kcal, 79g pro, 729ml free H2O - If part of POC, rec to obtain GI access, initiate non oral TFs. - Start Glucerna 1.5 @10ml/hr for 6hrs. Advance as tolerated 10ml/hr q4-6 hrs to goal. - Flush per MD/ HOB over 30 degreed ADDITIONAL RECOMMENDATIONS: 1) With diet order: add BEAN BID. F/up with WC eval 2) Maintain calibrated bed scale wts 3) FILM FLAT INSPECTOR eval for oral diet 4) monitor hydration status 5) Glucerna TID w/ meals for oral diet Sundeep Howard October 02, 2019 17:44
[2019-10-02 20:00] VITALS: BP 129/71
--- NOTE | 2019-10-02 22:00 | Progress Note ---
DATE: 10/02/2019 SUBJECTIVE: This is an 89-year-old female who came with altered mental status, sepsis, dehydration, failure to thrive. Patient is unable to eat, failed swallow eval. Going for PEG placement tomorrow. OBJECTIVE: VITAL SIGNS: Blood pressure is 149/65, pulse 86, respirations 21, temperature . HEENT: NAD. CHEST: Bilaterally decreased breath sounds. CARDIOVASCULAR: Regular rhythm. ABDOMEN: Soft. EXTREMITIES: CCE. NEUROLOGICAL: Generalized weakness. LABORATORY DATA: White counts are 22,000 to now 15,000, hemoglobin 8.9, hematocrit 27, platelets are 302. Chemistry panel sodium 132, potassium 5.1, BUN is 24, creatinine 1.2. ASSESSMENT: 1. Sepsis. 2. Patient's Coronavirus is negative. PLAN: 1. Continue antibiotic. 2. Continue NG tube feeding. 3. Continue Zyprexa and Zofran. 4. GI is on case. Sher Carrillo M.D. DR: CRISTOPHER JOB#: [id number] CC:
[2019-10-03] VITALS: BP 138/74
[2019-10-03 04:00] VITALS: BP 149/76
[2019-10-03] MEDS: Meropenem 500 MG in NS 55 ML IVPB SCH ×2 (05:10→18:18)
[2019-10-03 06:18] LABS: BASOPHILS % (AUTO) 0.5 % (0.0-2.0); EOSINOPHILS % (AUTO) 0.7 % (0.0-3.0); HEMATOCRIT 26.5 % (37.0-47.0); HEMOGLOBIN 8.7 G/DL (12.0-16.0); LYMPHOCYTES % (AUTO) 7.7 % (20.0-45.0); MEAN CORPUSCULAR VOLUME 86 FL (80-99); MONOCYTES % (AUTO) 7.6 % (1.0-10.0); NEUTROPHILS % (AUTO) 83.5 % (45.0-75.0); PLATELET COUNT 322 K/UL (150-450); RED CELL DISTRIBUTION WIDTH 12.6 % (11.6-14.8); WHITE BLOOD COUNT 12.6 K/UL (4.8-10.8)
[2019-10-03 06:57] LABS: ANION GAP 4 mmol/L (5-15); BLOOD UREA NITROGEN 27 mg/dL (7-18); CALCIUM 8.4 MG/DL (8.5-10.1); CARBON DIOXIDE 31 MMOL/L (21-32); CHLORIDE 100 MMOL/L (98-107); CREATININE 0.9 MG/DL (0.55-1.30); POTASSIUM 4.4 MMOL/L (3.5-5.1); SODIUM 135 MMOL/L (136-145)
[2019-10-03 08:00] VITALS: BP 131/55
[2019-10-03] MEDS: OLANZapine 2.5mg tab ORAL SCH (10:31)
--- NOTE | 2019-10-03 10:37 | Surgery Progress Note ---
Surgery Progress Note Subjective Additional Comments pending peg otherwise comfortable Objective Last 24 Hour Vital Signs Date Time Temp Pulse Resp B/P (MAP) Pulse Ox O2 Delivery O2 Flow Rate FiO2 10/03/19 08:00 97.0 112 19 131/55 (80) 98 10/03/19 04:00 98.5 99 18 149/76 (100) 97 10/03/19 00:00 98.5 103 20 138/74 (95) 94 10/02/19 21:00 Nasal Cannula 2.0 10/02/19 20:00 98.8 112 22 129/71 (90) 97 10/02/19 16:00 97.7 104 18 134/73 (93) 97 10/02/19 12:00 97.7 86 21 149/65 (93) 97 I&O Intake and Output 10/02/19 10/03/19 19:00 07:00 Intake Total 640 ml Output Total 2 ml 500 ml Balance 638 ml -500 ml Intake Free Water 200 ml Tube Feeding 440 ml Output Urine Total 2 ml 500 ml # Voids 1 Dressing: other Wound: other Drains: other Cardiovascular: RSR Respiratory: decreased breath sounds Abdomen: soft, non-tender, present bowel sounds Extremities: no cyanosis Laboratory Tests Test 10/03/19 04:42 White Blood Count 12.6 K/UL (4.8-10.8) H Red Blood Count 3.10 M/UL (4.20-5.40) L Hemoglobin 8.7 G/DL (12.0-16.0) L Hematocrit 26.5 % (37.0-47.0) L Mean Corpuscular Volume 86 FL (80-99) Mean Corpuscular Hemoglobin 28.1 PG (27.0-31.0) Mean Corpuscular Hemoglobin Concent 32.9 G/DL (32.0-36.0) Red Cell Distribution Width 12.6 % (11.6-14.8) Platelet Count 322 K/UL (150-450) Mean Platelet Volume 5.7 FL (6.5-10.1) L Neutrophils (%) (Auto) 83.5 % (45.0-75.0) H Lymphocytes (%) (Auto) 7.7 % (20.0-45.0) L Monocytes (%) (Auto) 7.6 % (1.0-10.0) Eosinophils (%) (Auto) 0.7 % (0.0-3.0) Basophils (%) (Auto) 0.5 % (0.0-2.0) Sodium Level 135 MMOL/L (136-145) L Potassium Level 4.4 MMOL/L (3.5-5.1) Chloride Level 100 MMOL/L (98-107) Carbon Dioxide Level 31 MMOL/L (21-32) Anion Gap 4 mmol/L (5-15) L Blood Urea Nitrogen 27 mg/dL (7-18) H Creatinine 0.9 MG/DL (0.55-1.30) Estimat Glomerular Filtration Rate > 60 mL/min (>60) Glucose Level 165 MG/DL (74-106) #H Calcium Level 8.4 MG/DL (8.5-10.1) L Plan Problems: (1) Decubitus skin ulcer Assessment & Plan: Pt presented on admission with Multiple Pressure injuries. Unstageable Sacral Pressure injury(L)9.5cm x (W)11cm. Base of wound is 75% necrotic 25% mixed slough and erythema. Periwound is indurated with non- blanchable erythema. No odor or exudate noted. Additional open wound in close proximity noted to lower R cleft of buttocks. DTPI Noted to R heel and lateral R heel. Base of wound is fluctuant, purple with maroon borders.(L)7.5cm x (W)11cm.Periwound is blanchable but boggy. DTPI L heel and Lateral aspect. Base of wound is maroon and fluctuant. (L)6.5cm x (W)9.5cm. Periwound is blanchable but boggy. DTPI L 1st Metatarsal Head. Base of wound is fluctuant,purple with surrounding maroon borders.(L)2.5cm x (W)1.5cm. Non-blanching erythema without fluctuance noted to R 1st metatarsal head. Tx.Plan: Cleanse Sacral wound with Saline. Apply Therahoney impregnated Kerlix. Apply Moisture Barrier Paste periwound. Cover with Optifoam drsg. Daily and prn. Apply Cavilon Skin Barrier to R and L Heels. Cover each heel with Optifoam drsg.Change every 7 days and prn. Apply Cavilon Skin Barrier to R and L 1st Metatarsals Daily and prn. Reposition at least every 2hoours or as tolerated. Place Pillow between Knees. Off-load heels with Pillow. APM/KEYONA Mattress overlay. (2) Sepsis Assessment & Plan: leukocytosis, abnormal labs low grade fever COVID eval necessary long term patient respiratory support nutrition Urine with UTI pending micro wounds no gross infection rx as written on abx trend labs will follow with recs improving needs repeat swallow eval cont ng tube feed nutrition for now picc for abx (3) Suspected 2019 novel coronavirus infection (4) Respiratory distress (5) Failure to thrive Assessment & Plan: Mild to moderate Oropharyngeal dysphagia (Level 4 on the MICHI Dysphagia Outcome Severity Scale) with increased oral prep and oropharyngeal transit times due to sensorimotor deficits compounded by cognitive -behavioral deficits (h/o dementia, lethargic, talks with trials in mouth). HIGH ASPIRATION/PENETRATION RISKS AND REDUCED SWALLOW EFFICIENCY DUE TO THE FOLLOWING COMPONENTS/DEFICITS: Oral Impairment Tongue Control Oral residue Initiation of pharyngeal swallow Pharyngeal Impairment Laryngeal elevation (LE) Anterior hyoid excursion (AHE) Epiglottic movement Late and incomplete Laryngeal vestibular closure Pharyngeal stripping wave Tongue base retraction Pharyngeal residue Decrease pharyngeal sensation THIN LIQUIDS: PAS 6 Flash trace aspiration below the vocal folds, Patient able to clear/ejected with multiple swallows. NECTAR THICK LIQUIDS: PAS 4 Radiographic evidence of flash trace penetration to the level of the vocal folds , cleared with multiple swallows. HONEY THICK & PUDDING THICK: PAS 4 Flash penetration to the level of the vocal folds, cleared with multiple swallows. Mild Esophageal Dysphagia: Noted to have trace esophageal retention with no significant retrograde flow, no obstruction to bolus flow noted. WFL cricopharyngeal opening. -Patient is a high risk for recurrent penetration and/or aspiration due to poor swallow efficiency and sensorimotor deficits. Patient also presenting as a high risk for poor PO intake, as s/p nine PO trials, Patient reports feeling lethargic and requesting to rest. Patient did not present with any significant aspiration or penetration, however , there was radiographic evidence of trace aspiration with recovery with thin liquids, flash trace penetration with recovery with nectar thick liquids, and flash trace penetration with recovery with honey thick and pudding thick liquids. - Patient presenting as a high risk for poor PO intake and recurrent penetration /aspiration with PO given Patient's advanced age, h/o FTT, Dementia, aspiration PNA; Therefore, prognosis for Patient's ability to maintain adequate nutrition/ hydration via PO intake is guarded and MD to consider alternative long-term nutrition/hydration. TRIAL TX: Patient unable to consistently follow verbal cues to multiple swallows , effortful swallow, and/or chin tuck . RECOMMENDATIONS: 1.MD to consider rodent exterminator alternative method nutrition/hydration. DAILY ESTIMATED NEEDS: Needs based on Sepsis 54.5kg 25-35 kcals/kg 4979-0328 total kcals 1-2 g protein/kg 55-109 g total protein 25-30ml/kcal mL/kg 4324-9891 total fluid mLs NUTRITION DIAGNOSIS: Increased kcal and pro needs r/t sepsis and wound healing as evidenced by pt adm w/ critically elev WBC, open sacral/ buttock wound, eval pending. CURRENT DIET: NPO PO DIET RECOMMENDATIONS: Liberalized Regular diet/ texture per LITHOGRAPHERS PRINTER ENTERAL NUTRITION RECOMMENDATIONS: Glucerna 1.5 @40ml/hr x24 hrs to provide 960ml, 1440 kcal, 79g pro, 729ml free H2O - If part of POC, rec to obtain GI access, initiate non oral TFs. - Start Glucerna 1.5 @10ml/hr for 6hrs. Advance as tolerated 10ml/hr q4-6 hrs to goal. - Flush per MD/ HOB over 30 degreed ADDITIONAL RECOMMENDATIONS: 1) With diet order: add BEAN BID. F/up with WC eval 2) Maintain calibrated bed scale wts 3) LITHOGRAPHERS PRINTER eval for oral diet 4) monitor hydration status 5) Glucerna TID w/ meals for oral diet Sundeep Howard October 03, 2019 10:37
--- NOTE | 2019-10-03 10:41 | General Progress Note ---
Assessment/Plan Assessment/Plan: 1. COPD. 2. Schizophrenia. 3. Bradycardia in this admission. 4. anemia 5. FTT swallow eval appreciated NGTF for now plan PEG for tomorrow fu H&H prn blood transfusion Subjective ROS Limited/Unobtainable: No Allergies: Coded Allergies: No Known Allergies (Unverified , 09/23/19) Objective Last 24 Hour Vital Signs Date Time Temp Pulse Resp B/P (MAP) Pulse Ox O2 Delivery O2 Flow Rate FiO2 10/03/19 08:00 97.0 112 19 131/55 (80) 98 10/03/19 04:00 98.5 99 18 149/76 (100) 97 10/03/19 00:00 98.5 103 20 138/74 (95) 94 10/02/19 21:00 Nasal Cannula 2.0 10/02/19 20:00 98.8 112 22 129/71 (90) 97 10/02/19 16:00 97.7 104 18 134/73 (93) 97 10/02/19 12:00 97.7 86 21 149/65 (93) 97 Intake and Output 10/02/19 10/03/19 19:00 07:00 Intake Total 640 ml Output Total 2 ml 500 ml Balance 638 ml -500 ml Intake Free Water 200 ml Tube Feeding 440 ml Output Urine Total 2 ml 500 ml # Voids 1 Laboratory Tests 10/03/19 04:42: White Blood Count 12.6H, Red Blood Count 3.10L, Hemoglobin 8.7L, Hematocrit 26.5L, Mean Corpuscular Volume 86, Mean Corpuscular Hemoglobin 28.1, Mean Corpuscular Hemoglobin Concent 32.9, Red Cell Distribution Width 12.6, Platelet Count 322, Mean Platelet Volume 5.7L, Neutrophils (%) (Auto) 83.5H, Lymphocytes (%) (Auto) 7.7L, Monocytes (%) (Auto) 7.6, Eosinophils (%) (Auto) 0.7, Basophils (%) (Auto) 0.5, Sodium Level 135L, Potassium Level 4.4, Chloride Level 100, Carbon Dioxide Level 31, Anion Gap 4L, Blood Urea Nitrogen 27H, Creatinine 0.9, Estimat Glomerular Filtration Rate > 60, Glucose Level 165#H, Calcium Level 8.4L Height (Feet): 5 Height (Inches): 2.00 Weight (Pounds): 150 General Appearance: no apparent distress EENT: normal ENT inspection Neck: supple Cardiovascular: normal rate Respiratory/Chest: decreased breath sounds Abdomen: normal bowel sounds, non tender, soft Extremities: non-tender Shiv Rodgers MD October 03, 2019 10:41
[2019-10-03 12:00] VITALS: BP 117/58
--- NOTE | 2019-10-03 12:14 | Infectious Diseases Prog Note ---
Assessment/Plan Assessment/Plan A 1. Pneumonia COVID-19 X 2: negative 2. Hypertension. 3. Dementia. 4. Acute renal failure improving 5. leucocytosis improving P 1. Continue Meropenem X 3 days . Subjective ROS Limited/Unobtainable: Yes Neurologic: Reports: confusion, other - on restraint Allergies: Coded Allergies: No Known Allergies (Unverified , 09/23/19) Objective Vital Signs Last 24 Hour Vital Signs Date Time Temp Pulse Resp B/P (MAP) Pulse Ox O2 Delivery O2 Flow Rate FiO2 10/03/19 08:00 97.0 112 19 131/55 (80) 98 10/03/19 04:00 98.5 99 18 149/76 (100) 97 10/03/19 00:00 98.5 103 20 138/74 (95) 94 10/02/19 21:00 Nasal Cannula 2.0 10/02/19 20:00 98.8 112 22 129/71 (90) 97 10/02/19 16:00 97.7 104 18 134/73 (93) 97 Height (Feet): 5 Height (Inches): 2.00 Weight (Pounds): 150 General Appearance: no acute distress HEENT: mucous membranes moist Respiratory/Chest: lungs clear Cardiovascular: tachycardia Abdomen: soft, non tender, other - NG tube feeding Extremities: no edema Neurologic/Psychiatric: disoriented Laboratory Tests Test 10/03/19 04:42 White Blood Count 12.6 K/UL (4.8-10.8) H Red Blood Count 3.10 M/UL (4.20-5.40) L Hemoglobin 8.7 G/DL (12.0-16.0) L Hematocrit 26.5 % (37.0-47.0) L Mean Corpuscular Volume 86 FL (80-99) Mean Corpuscular Hemoglobin 28.1 PG (27.0-31.0) Mean Corpuscular Hemoglobin Concent 32.9 G/DL (32.0-36.0) Red Cell Distribution Width 12.6 % (11.6-14.8) Platelet Count 322 K/UL (150-450) Mean Platelet Volume 5.7 FL (6.5-10.1) L Neutrophils (%) (Auto) 83.5 % (45.0-75.0) H Lymphocytes (%) (Auto) 7.7 % (20.0-45.0) L Monocytes (%) (Auto) 7.6 % (1.0-10.0) Eosinophils (%) (Auto) 0.7 % (0.0-3.0) Basophils (%) (Auto) 0.5 % (0.0-2.0) Sodium Level 135 MMOL/L (136-145) L Potassium Level 4.4 MMOL/L (3.5-5.1) Chloride Level 100 MMOL/L (98-107) Carbon Dioxide Level 31 MMOL/L (21-32) Anion Gap 4 mmol/L (5-15) L Blood Urea Nitrogen 27 mg/dL (7-18) H Creatinine 0.9 MG/DL (0.55-1.30) Estimat Glomerular Filtration Rate > 60 mL/min (>60) Glucose Level 165 MG/DL (74-106) #H Calcium Level 8.4 MG/DL (8.5-10.1) L Current Medications Medications (Trade) Dose Ordered Sig/Naya Route PRN Reason Start Time Stop Time Status Last Admin Dose Admin Acetaminophen (Tylenol) 650 mg Q6H PRN ORAL For Headache 09/29/19 14:05 10/24/19 14:04 Barium Sulfate (Varibar Honey) 250 ml NOW PRN MC RAD 10/01/19 15:15 10/04/19 15:07 Barium Sulfate (Varibar [place]) 240 ml NOW PRN MC RAD 10/01/19 15:15 10/04/19 15:07 Barium Sulfate (Varibar Pudding) 230 ml NOW PRN MC RAD 10/01/19 15:15 10/04/19 15:07 Diphenhydramine HCl (Benadryl) 50 mg Q6H PRN IVP Itching 09/29/19 14:05 10/24/19 14:04 Haloperidol Lactate (Haldol) 5 mg Q6H PRN IM Agitation 09/29/19 14:06 11/09/19 14:05 Meropenem 500 mg/ Sodium Chloride 55 ml @ 110 mls/hr Q12H IVPB 10/02/19 18:00 10/07/19 17:59 10/03/19 05:10 Olanzapine (ZyPREXA) 2.5 mg DAILY ORAL 09/30/19 09:00 11/10/19 08:59 10/03/19 10:31 Olanzapine (ZyPREXA) 5 mg BEDTIME ORAL 09/29/19 21:00 11/10/19 20:59 10/02/19 21:28 Ondansetron HCl (Zofran) 4 mg Q6H PRN IVP Nausea & Vomiting 09/29/19 14:06 10/24/19 14:05 Cesar Ludwig MD October 03, 2019 12:14
--- NOTE | 2019-10-03 12:17 | Pulmonology Progress Note ---
Subjective ROS Limited/Unobtainable: Yes Interval Events: None new; labs reviewed Constitutional: Denies: fever HEENT: Repors: no symptoms Respiratory: Reports: no symptoms Cardiovascular: Reports: no symptoms Gastrointestinal/Abdominal: Reports: no symptoms Genitourinary: Reports: no symptoms Neurologic: Reports: no symptoms Allergies: Coded Allergies: No Known Allergies (Unverified , 09/23/19) Objective Last 24 Hour Vital Signs Date Time Temp Pulse Resp B/P (MAP) Pulse Ox O2 Delivery O2 Flow Rate FiO2 10/03/19 08:00 97.0 112 19 131/55 (80) 98 10/03/19 04:00 98.5 99 18 149/76 (100) 97 10/03/19 00:00 98.5 103 20 138/74 (95) 94 10/02/19 21:00 Nasal Cannula 2.0 10/02/19 20:00 98.8 112 22 129/71 (90) 97 10/02/19 16:00 97.7 104 18 134/73 (93) 97 Intake and Output 10/02/19 10/03/19 19:00 07:00 Intake Total 640 ml Output Total 2 ml 500 ml Balance 638 ml -500 ml Intake Free Water 200 ml Tube Feeding 440 ml Output Urine Total 2 ml 500 ml # Voids 1 General Appearance: no acute distress HEENT: normocephalic Respiratory: chest wall non-tender, lungs clear Cardiovascular: normal peripheral pulses Abdomen: normal bowel sounds Laboratory Tests 10/03/19 04:42: White Blood Count 12.6H, Red Blood Count 3.10L, Hemoglobin 8.7L, Hematocrit 26.5L, Mean Corpuscular Volume 86, Mean Corpuscular Hemoglobin 28.1, Mean Corpuscular Hemoglobin Concent 32.9, Red Cell Distribution Width 12.6, Platelet Count 322, Mean Platelet Volume 5.7L, Neutrophils (%) (Auto) 83.5H, Lymphocytes (%) (Auto) 7.7L, Monocytes (%) (Auto) 7.6, Eosinophils (%) (Auto) 0.7, Basophils (%) (Auto) 0.5, Sodium Level 135L, Potassium Level 4.4, Chloride Level 100, Carbon Dioxide Level 31, Anion Gap 4L, Blood Urea Nitrogen 27H, Creatinine 0.9, Estimat Glomerular Filtration Rate > 60, Glucose Level 165#H, Calcium Level 8.4L Current Medications Medications (Trade) Dose Ordered Sig/Naya Route PRN Reason Start Time Stop Time Status Last Admin Dose Admin Acetaminophen (Tylenol) 650 mg Q6H PRN ORAL For Headache 09/29/19 14:05 10/24/19 14:04 Barium Sulfate (Varibar Honey) 250 ml NOW PRN MC RAD 10/01/19 15:15 10/04/19 15:07 Barium Sulfate (Varibar [place]) 240 ml NOW PRN MC RAD 10/01/19 15:15 10/04/19 15:07 Barium Sulfate (Varibar Pudding) 230 ml NOW PRN MC RAD 10/01/19 15:15 10/04/19 15:07 Diphenhydramine HCl (Benadryl) 50 mg Q6H PRN IVP Itching 09/29/19 14:05 10/24/19 14:04 Haloperidol Lactate (Haldol) 5 mg Q6H PRN IM Agitation 09/29/19 14:06 11/09/19 14:05 Meropenem 500 mg/ Sodium Chloride 55 ml @ 110 mls/hr Q12H IVPB 10/02/19 18:00 10/07/19 17:59 10/03/19 05:10 Olanzapine (ZyPREXA) 2.5 mg DAILY ORAL 09/30/19 09:00 11/10/19 08:59 10/03/19 10:31 Olanzapine (ZyPREXA) 5 mg BEDTIME ORAL 09/29/19 21:00 11/10/19 20:59 10/02/19 21:28 Ondansetron HCl (Zofran) 4 mg Q6H PRN IVP Nausea & Vomiting 09/29/19 14:06 10/24/19 14:05 Assessment/Plan Assessment/Plan IMPRESSION: 1. Marked leukocytosis. WBC improved 2. Hypoxemia. On supplemental O2; improved. 3. COPD. 4. senior care resident. 5. Schizophrenia. 6. Dementia. 7. Hypernatremia; better; now normal DISCUSSION: Agree with empiric antibiotics. Do not suspect COVID-19; pcr x 2 is negative Continue current medications and care. 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 Currently saturating well on low flow O2 Hypernatremic; off hypotonic fluids Decreased free water to 250 ml q 6 I will follow Discussed with ID PEG today Discussed with GI Neha Beverly Omar Syed MD October 03, 2019 12:17
--- NOTE | 2019-10-03 15:52 | Cardiac Electrophysiology PN ---
Assessment/Plan Assessment/Plan 1.Sinus bradycardia off any KERR or AVN blockers. Not hypothyroid. 2. History of hypertension. Off antihypertensive agents. 3. 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 Further evaluation by Dr. Howard. 4. Sepsis and leukocytosis. WBC decreasing on Abx 5. Rule out COVID. 6. Dementia and psychosis. 7. Dysphagia, PEG in am DW RN DC today Subjective Subjective Confused in restraints with NGT feeding ongoing. PEG planned for tomorrow.BP stable Objective Last 24 Hour Vital Signs Date Time Temp Pulse Resp B/P (MAP) Pulse Ox O2 Delivery O2 Flow Rate FiO2 10/03/19 12:00 98.1 88 20 117/58 (77) 97 10/03/19 09:00 Nasal Cannula 2.0 10/03/19 08:00 97.0 112 19 131/55 (80) 98 10/03/19 04:00 98.5 99 18 149/76 (100) 97 10/03/19 00:00 98.5 103 20 138/74 (95) 94 10/02/19 21:00 Nasal Cannula 2.0 10/02/19 20:00 98.8 112 22 129/71 (90) 97 10/02/19 16:00 97.7 104 18 134/73 (93) 97 Intake and Output 10/02/19 10/03/19 19:00 07:00 Intake Total 640 ml Output Total 2 ml 500 ml Balance 638 ml -500 ml Intake Free Water 200 ml Tube Feeding 440 ml Output Urine Total 2 ml 500 ml # Voids 1 Laboratory Tests Test 10/03/19 04:42 White Blood Count 12.6 K/UL (4.8-10.8) H Red Blood Count 3.10 M/UL (4.20-5.40) L Hemoglobin 8.7 G/DL (12.0-16.0) L Hematocrit 26.5 % (37.0-47.0) L Mean Corpuscular Volume 86 FL (80-99) Mean Corpuscular Hemoglobin 28.1 PG (27.0-31.0) Mean Corpuscular Hemoglobin Concent 32.9 G/DL (32.0-36.0) Red Cell Distribution Width 12.6 % (11.6-14.8) Platelet Count 322 K/UL (150-450) Mean Platelet Volume 5.7 FL (6.5-10.1) L Neutrophils (%) (Auto) 83.5 % (45.0-75.0) H Lymphocytes (%) (Auto) 7.7 % (20.0-45.0) L Monocytes (%) (Auto) 7.6 % (1.0-10.0) Eosinophils (%) (Auto) 0.7 % (0.0-3.0) Basophils (%) (Auto) 0.5 % (0.0-2.0) Sodium Level 135 MMOL/L (136-145) L Potassium Level 4.4 MMOL/L (3.5-5.1) Chloride Level 100 MMOL/L (98-107) Carbon Dioxide Level 31 MMOL/L (21-32) Anion Gap 4 mmol/L (5-15) L Blood Urea Nitrogen 27 mg/dL (7-18) H Creatinine 0.9 MG/DL (0.55-1.30) Estimat Glomerular Filtration Rate > 60 mL/min (>60) Glucose Level 165 MG/DL (74-106) #H Calcium Level 8.4 MG/DL (8.5-10.1) L Objective HEAD AND NECK: No JVD. NG tube LUNGS: Coarse rhonchi. CARDIOVASCULAR: Regular S1, S2 with no gallop. ABDOMEN: Soft. EXTREMITIES: No pitting edema. Srinivas Hsieh MD October 03, 2019 15:52
[2019-10-03 16:00] VITALS: BP 104/51
[2019-10-03 20:00] VITALS: BP 145/81
--- NOTE | 2019-10-03 21:30 | Progress Note ---
DATE: 10/03/2019 SUBJECTIVE: This is an 89-year-old female came for sepsis, pneumonia, failure to thrive. Patient was found to have sepsis. Patient also has dysphagia. NG tube placed. Waiting for family to call back for consent for PEG placement. OBJECTIVE: VITAL SIGNS: Blood pressure 117/58, pulse 88. CHEST: Bilaterally few crackles. CARDIOVASCULAR: Regular rhythm. ABDOMEN: Soft. EXTREMITIES: CCE. LABORATORY DATA: White counts are 13,000, hemoglobin 8.7. Chemistry panel, BUN 27, creatinine 0.9. ASSESSMENT: 1. Sepsis is resolving. 2. Chronic aspiration pneumonia. 3. Dehydration. 4. Dysphagia. PLAN: Continue current treatment. Awaiting for placement. Continue NG tube feeding. Sher Carrillo M.D. DR: CRISTOPHER JOB#: [id number] CC:
[2019-10-04] VITALS (10 sets, daily range): BP systolic 130–159; BP diastolic 75–92
--- NOTE | 2019-10-04 02:15 | Progress Note ---
DATE: 10/03/2019 SUBJECTIVE: The patient is in bed, low appetite, NG tube is placed. No behavior issues noted. Compliant with medication, episodes of agitation. MENTAL STATUS EXAMINATION: Alert and disoriented. Mood is agitated. Affect is flat. Thought process is disorganized. Thought content, no suicidal or homicidal ideation. Cognition is impaired. Insight and judgment is impaired. ASSESSMENT: 1. Dementia with behavior disturbance. 2. . 3. Schizophrenia. PLAN: 1. Continue Zyprexa. 2. . 3. Haldol as needed. 4. Discussed with the nurse. John Vanegas M.D. DR: Adryan JOB#: [id number] CC:
[2019-10-04] MEDS: Meropenem 500 MG in NS 55 ML IVPB SCH ×2 (05:10→17:25)
[2019-10-04 06:16] LABS: BASOPHILS % (AUTO) 0.7 % (0.0-2.0); EOSINOPHILS % (AUTO) 1.2 % (0.0-3.0); HEMATOCRIT 28.1 % (37.0-47.0); HEMOGLOBIN 9.2 G/DL (12.0-16.0); MEAN CORPUSCULAR VOLUME 85 FL (80-99); MONOCYTES % (AUTO) 6.4 % (1.0-10.0); NEUTROPHILS % (AUTO) 80.7 % (45.0-75.0); PLATELET COUNT 334 K/UL (150-450); RED BLOOD COUNT 3.29 M/UL (4.20-5.40); RED CELL DISTRIBUTION WIDTH 12.6 % (11.6-14.8); WHITE BLOOD COUNT 12.7 K/UL (4.8-10.8)
[2019-10-04 06:30] LABS: INR 1.2 (0.9-1.1)
[2019-10-04 06:49] LABS: ANION GAP 3 mmol/L (5-15); BLOOD UREA NITROGEN < 1 mg/dL (7-18); CARBON DIOXIDE 32 MMOL/L (21-32); CHLORIDE 102 MMOL/L (98-107); CREATININE 0.8 MG/DL (0.55-1.30); SODIUM 137 MMOL/L (136-145)
--- NOTE | 2019-10-04 07:18 | Anethesia Preoperative Eval ---
Anesthesia Pre-op PMH/ROS General Date of Evaluation: October 04, 2019 Time of Evaluation: 07:18 Anesthesiologist: coleen ASA Score: ASA 4 Mallampati Score Class I : Soft palate, uvula, fauces, pillars visible Class II: Soft palate, uvula, fauces visible Class III: Soft palate, base of uvula visible Class IV: Only hard plate visible Mallampati Classification: Class II Surgeon: flaco Diagnosis: failure to thrive, dysphagia Surgical Procedure: egd/peg Anesthesia History: none Social History: smoking - nonsmoker Family History: no anesthesia problems Allergies: Coded Allergies: No Known Allergies (Unverified , 09/23/19) Medications: see eMAR Patient NPO?: Yes Past Medical History Cardiovascular: Reports: HTN Gastrointestinal/Genitourinary: Reports: other - nausea, vomiting, dysphagia Neurologic/Psychiatric: Reports: dementia, other - chronic pain, muscle weakness Hematology/Immune: Reports: anemia, DVT Anesthesia Pre-op Phys. Exam Physician Exam Last Vital Signs Date Time Temp Pulse Resp B/P (MAP) Pulse Ox O2 Delivery O2 Flow Rate FiO2 10/04/19 04:00 97.2 97 24 149/92 (111) 96 10/03/19 21:00 Room Air 10/03/19 09:00 2.0 Constitutional: NAD Neurologic: other - obtunded Cardiovascular: RRR Respiratory: CTA Gastrointestinal: S/NT/ND Airway Exam Mallampati Score: Class II MO: limited Neck: flexible TMD: 2fb ROM: limited Teeth: missing Anesthesia Pre-op A/P Labs Hematology Test 10/04/19 05:20 White Blood Count 12.7 K/UL (4.8-10.8) H Red Blood Count 3.29 M/UL (4.20-5.40) L Hemoglobin 9.2 G/DL (12.0-16.0) L Hematocrit 28.1 % (37.0-47.0) L Mean Corpuscular Volume 85 FL (80-99) Mean Corpuscular Hemoglobin 27.9 PG (27.0-31.0) Mean Corpuscular Hemoglobin Concent 32.7 G/DL (32.0-36.0) Red Cell Distribution Width 12.6 % (11.6-14.8) Platelet Count 334 K/UL (150-450) Mean Platelet Volume 5.0 FL (6.5-10.1) L Neutrophils (%) (Auto) 80.7 % (45.0-75.0) H Lymphocytes (%) (Auto) 11.0 % (20.0-45.0) L Monocytes (%) (Auto) 6.4 % (1.0-10.0) Eosinophils (%) (Auto) 1.2 % (0.0-3.0) Basophils (%) (Auto) 0.7 % (0.0-2.0) Coagulation Test 10/04/19 05:20 Prothrombin Time 12.6 SEC (9.30-11.50) H Prothromb Time International Ratio 1.2 (0.9-1.1) H Chemistry Test 10/04/19 05:20 Sodium Level 137 MMOL/L (136-145) Potassium Level 5.0 MMOL/L (3.5-5.1) Chloride Level 102 MMOL/L (98-107) Carbon Dioxide Level 32 MMOL/L (21-32) Anion Gap 3 mmol/L (5-15) L Blood Urea Nitrogen < 1 mg/dL (7-18) L Creatinine 0.8 MG/DL (0.55-1.30) Estimat Glomerular Filtration Rate > 60 mL/min (>60) Glucose Level 120 MG/DL (74-106) H Calcium Level Pending Risk Assessment & Plan Assessment: [email or web address] Plan: mac Status Change Before Surgery: No Pre-Antibiotics Drug: Addie Peace MD October 04, 2019 07:18
[2019-10-04 07:50] LABS: CALCIUM 8.9 MG/DL (8.5-10.1)
[2019-10-04] MEDS: OLANZapine 2.5mg tab ORAL SCH (08:28)
--- NOTE | 2019-10-04 08:30 | Pre-Procedure Note/Attestation ---
Pre-Procedure Note/Attestation Complete Prior to Procedure Planned Procedure: not applicable Procedure Narrative: egd/peg Indications for Procedure Pre-Operative Diagnosis: dysphagia Attestation I attest that I discussed the nature of the procedure; its benefits; risks and complications; and alternatives (and the risks and benefits of such alternatives ), prior to the procedure, with the patient (or the patient's legal benefits representative). I attest that, if there was a reasonable possibility of needing a blood transfusion, the patient (or the patient's legal benefits representative) was given the [facility] standardized written summary, pursuant to the Jef Rhea Blood Safety Act ([place] Health and Safety Code # 1645, as amended). I attest that I re-evaluated the patient just prior to the surgery and that there has been no change in the patient's H&P, except as documented below: Shiv Rodgers MD October 04, 2019 08:30
[2019-10-04] MEDS ORDERED: NS 500ML IVPB ONE (08:35)
--- NOTE | 2019-10-04 08:59 | Endoscopy Procedure Note ---
Endoscopy Procedure Note General Indication for Procedure: dysphagia Procedures Performed: EGD, PEG Operative Findings/Diagnosis: same Specimen: none Pt Tolerated Procedure Well: Yes Estimated Blood Loss: none Anesthesia Anesthesiologist: carlton Anesthesia: MAC Inserted Devices Implant(s) used?: No GI Core Measures 50 yrs or older w/o bx or poly: Not Applicable 10yrs. F/U recommended: Not Applicable Shiv Rodgers MD October 04, 2019 08:59
[2019-10-04] MEDS ORDERED: Lidocaine 1% MPF 10mg/ml 5ml ONE (09:00)
[2019-10-04] MEDS ORDERED: DiphenhydrAMINE 50mg/ml Inj IVP PRN (09:15)
[2019-10-04] MEDS ORDERED: fentaNYL 100 mcg/2 mL IV PRN (09:15)
[2019-10-04] MEDS ORDERED: Midazolam 2mg/2ml Inj IVP PRN (09:15)
[2019-10-04] MEDS ORDERED: Atropine Inj 1mg/10ml Syr IV PRN (09:15)
--- NOTE | 2019-10-04 10:33 | Infectious Diseases Prog Note ---
Assessment/Plan Assessment/Plan antibiotics ; meropenem A 1. Pneumonia COVID-19 test negative x 2 2. Hypertension. 3. Dementia. 4. Renal failure improving 5. leucocytosis improving P 1. continue meropenem 2 more days 2. We will follow up cultures Subjective ROS Limited/Unobtainable: Yes Allergies: Coded Allergies: No Known Allergies (Unverified , 09/23/19) Objective Vital Signs Last 24 Hour Vital Signs Date Time Temp Pulse Resp B/P (MAP) Pulse Ox O2 Delivery O2 Flow Rate FiO2 10/04/19 09:35 97.6 87 18 152/75 99 Room Air 10/04/19 09:25 88 16 130/79 100 Nasal Cannula 3 10/04/19 09:20 89 14 136/76 100 Nasal Cannula 3 10/04/19 09:14 97.5 90 16 146/77 100 Nasal Cannula 3 10/04/19 09:00 Room Air 10/04/19 08:00 97.6 91 18 159/84 (109) 96 10/04/19 04:00 97.2 97 24 149/92 (111) 96 10/04/19 00:00 98.4 87 22 142/79 (100) 97 10/03/19 21:00 Room Air 10/03/19 20:00 98.4 98 26 145/81 (102) 95 10/03/19 16:00 98.2 77 18 104/51 (68) 98 10/03/19 12:00 98.1 88 20 117/58 (77) 97 Height (Feet): 5 Height (Inches): 1.00 Weight (Pounds): 149 Respiratory/Chest: lungs clear Cardiovascular: normal rate, regular rhythm, no gallop/murmur Abdomen: soft, non tender, other - GT Extremities: no edema Laboratory Tests Test 10/04/19 05:20 White Blood Count 12.7 K/UL (4.8-10.8) H Red Blood Count 3.29 M/UL (4.20-5.40) L Hemoglobin 9.2 G/DL (12.0-16.0) L Hematocrit 28.1 % (37.0-47.0) L Mean Corpuscular Volume 85 FL (80-99) Mean Corpuscular Hemoglobin 27.9 PG (27.0-31.0) Mean Corpuscular Hemoglobin Concent 32.7 G/DL (32.0-36.0) Red Cell Distribution Width 12.6 % (11.6-14.8) Platelet Count 334 K/UL (150-450) Mean Platelet Volume 5.0 FL (6.5-10.1) L Neutrophils (%) (Auto) 80.7 % (45.0-75.0) H Lymphocytes (%) (Auto) 11.0 % (20.0-45.0) L Monocytes (%) (Auto) 6.4 % (1.0-10.0) Eosinophils (%) (Auto) 1.2 % (0.0-3.0) Basophils (%) (Auto) 0.7 % (0.0-2.0) Prothrombin Time 12.6 SEC (9.30-11.50) H Prothromb Time International Ratio 1.2 (0.9-1.1) H Sodium Level 137 MMOL/L (136-145) Potassium Level 5.0 MMOL/L (3.5-5.1) Chloride Level 102 MMOL/L (98-107) Carbon Dioxide Level 32 MMOL/L (21-32) Anion Gap 3 mmol/L (5-15) L Blood Urea Nitrogen < 1 mg/dL (7-18) L Creatinine 0.8 MG/DL (0.55-1.30) Estimat Glomerular Filtration Rate > 60 mL/min (>60) Glucose Level 120 MG/DL (74-106) H Calcium Level 8.9 MG/DL (8.5-10.1) Current Medications Medications (Trade) Dose Ordered Sig/Naya Route PRN Reason Start Time Stop Time Status Last Admin Dose Admin Acetaminophen (Tylenol) 650 mg Q4H PRN ORAL Mild Pain (Pain Scale 1-3) 10/04/19 09:15 10/04/19 18:00 Acetaminophen (Tylenol) 650 mg Q6H PRN ORAL For Headache 09/29/19 14:05 10/24/19 14:04 Al Hydroxide/Mg Hydroxide (Mylanta) 15 ml Q1H PRN ORAL gi upset 10/04/19 09:15 10/04/19 18:00 Atropine Sulfate (Atropine) 0.5 mg Q5M PRN IV bpm less than 45 10/04/19 09:15 10/04/19 18:00 Barium Sulfate (Varibar Honey) 250 ml NOW PRN MC RAD 10/01/19 15:15 10/04/19 15:07 Barium Sulfate (Varibar [place]) 240 ml NOW PRN MC RAD 10/01/19 15:15 10/04/19 15:07 Barium Sulfate (Varibar Pud[place]) 230 ml NOW PRN MC RAD 10/01/19 15:15 10/04/19 15:07 Diphenhydramine HCl (Benadryl) 25 mg Q15M PRN IVP Itching 10/04/19 09:15 10/04/19 18:00 Diphenhydramine HCl (Benadryl) 50 mg Q6H PRN IVP Itching 09/29/19 14:05 10/24/19 14:04 Fentanyl Citrate (Sublimaze 100 mcg/2 mL) 25 mcg Q10M PRN IV Moderate Pain (Pain Scale 4-6) 10/04/19 09:15 10/04/19 18:00 Haloperidol Lactate (Haldol) 5 mg Q6H PRN IM Agitation 09/29/19 14:06 11/09/19 14:05 Hydralazine HCl (Apresoline) 5 mg Q30M PRN IV SBP>160 OR___/DBP>90 OR___ 10/04/19 09:15 10/04/19 18:00 Meropenem 500 mg/ Sodium Chloride 55 ml @ 110 mls/hr Q12H IVPB 10/02/19 18:00 10/07/19 17:59 10/04/19 05:10 Midazolam HCl (Versed 2mg/2ml vial) 1 mg Q15M PRN IVP For Anxiety 10/04/19 09:15 10/04/19 18:00 Olanzapine (ZyPREXA) 2.5 mg DAILY ORAL 09/30/19 09:00 11/10/19 08:59 10/03/19 10:31 Olanzapine (ZyPREXA) 5 mg BEDTIME ORAL 09/29/19 21:00 11/10/19 20:59 10/03/19 20:54 Ondansetron HCl (Zofran) 4 mg Q6H PRN IVP Nausea & Vomiting 09/29/19 14:06 10/24/19 14:05 Sodium Chloride 1,000 ml @ 10 mls/hr Q24H IVLG 10/04/19 09:05 10/04/19 11:04 Mazin Skinner MD October 04, 2019 10:33
--- NOTE | 2019-10-04 12:06 | Pulmonology Progress Note ---
Subjective ROS Limited/Unobtainable: Yes Interval Events: None new; labs reviewed Constitutional: Denies: fever HEENT: Repors: no symptoms Respiratory: Reports: no symptoms Cardiovascular: Reports: no symptoms Gastrointestinal/Abdominal: Reports: no symptoms Genitourinary: Reports: no symptoms Neurologic: Reports: no symptoms Allergies: Coded Allergies: No Known Allergies (Unverified , 09/23/19) Objective Last 24 Hour Vital Signs Date Time Temp Pulse Resp B/P (MAP) Pulse Ox O2 Delivery O2 Flow Rate FiO2 10/04/19 09:35 97.6 87 18 152/75 99 Room Air 10/04/19 09:25 88 16 130/79 100 Nasal Cannula 3 10/04/19 09:20 89 14 136/76 100 Nasal Cannula 3 10/04/19 09:14 97.5 90 16 146/77 100 Nasal Cannula 3 10/04/19 09:00 Room Air 10/04/19 08:00 97.6 91 18 159/84 (109) 96 10/04/19 04:00 97.2 97 24 149/92 (111) 96 10/04/19 00:00 98.4 87 22 142/79 (100) 97 10/03/19 21:00 Room Air 10/03/19 20:00 98.4 98 26 145/81 (102) 95 10/03/19 16:00 98.2 77 18 104/51 (68) 98 Intake and Output 10/03/19 10/04/19 19:00 07:00 Intake Total 680 ml 500 ml Output Total 450 ml 1200 ml Balance 230 ml -700 ml Intake Free Water 200 ml 200 ml Tube Feeding 480 ml 300 ml Output Urine Total 450 ml 1200 ml # Bowel Movements 1 1 General Appearance: no acute distress HEENT: normocephalic Respiratory: chest wall non-tender, lungs clear Cardiovascular: normal peripheral pulses Abdomen: normal bowel sounds Laboratory Tests 10/04/19 05:20: White Blood Count 12.7H, Red Blood Count 3.29L, Hemoglobin 9.2L, Hematocrit 28.1L, Mean Corpuscular Volume 85, Mean Corpuscular Hemoglobin 27.9, Mean Corpuscular Hemoglobin Concent 32.7, Red Cell Distribution Width 12.6, Platelet Count 334, Mean Platelet Volume 5.0L, Neutrophils (%) (Auto) 80.7H, Lymphocytes (%) (Auto) 11.0L, Monocytes (%) (Auto) 6.4, Eosinophils (%) (Auto) 1.2, Basophils (%) (Auto) 0.7, Prothrombin Time 12.6H, Prothromb Time International Ratio 1.2H, Sodium Level 137, Potassium Level 5.0, Chloride Level 102, Carbon Dioxide Level 32, Anion Gap 3L, Blood Urea Nitrogen < 1L, Creatinine 0.8, Estimat Glomerular Filtration Rate > 60, Glucose Level 120H, Calcium Level 8.9 Current Medications Medications (Trade) Dose Ordered Sig/Naya Route PRN Reason Start Time Stop Time Status Last Admin Dose Admin Acetaminophen (Tylenol) 650 mg Q4H PRN ORAL Mild Pain (Pain Scale 1-3) 10/04/19 09:15 10/04/19 18:00 Acetaminophen (Tylenol) 650 mg Q6H PRN ORAL For Headache 09/29/19 14:05 10/24/19 14:04 Al Hydroxide/Mg Hydroxide (Mylanta) 15 ml Q1H PRN ORAL gi upset 10/04/19 09:15 10/04/19 18:00 Atropine Sulfate (Atropine) 0.5 mg Q5M PRN IV bpm less than 45 10/04/19 09:15 10/04/19 18:00 Barium Sulfate (Varibar Honey) 250 ml NOW PRN MC RAD 10/01/19 15:15 10/04/19 15:07 Barium Sulfate (Varibar [place]) 240 ml NOW PRN MC RAD 10/01/19 15:15 10/04/19 15:07 Barium Sulfate (Varibar Pudding) 230 ml NOW PRN MC RAD 10/01/19 15:15 10/04/19 15:07 Diphenhydramine HCl (Benadryl) 25 mg Q15M PRN IVP Itching 10/04/19 09:15 10/04/19 18:00 Diphenhydramine HCl (Benadryl) 50 mg Q6H PRN IVP Itching 09/29/19 14:05 10/24/19 14:04 Fentanyl Citrate (Sublimaze 100 mcg/2 mL) 25 mcg Q10M PRN IV Moderate Pain (Pain Scale 4-6) 10/04/19 09:15 10/04/19 18:00 Haloperidol Lactate (Haldol) 5 mg Q6H PRN IM Agitation 5/24/20 14:06 11/09/19 14:05 Hydralazine HCl (Apresoline) 5 mg Q30M PRN IV SBP>160 OR___/DBP>90 OR___ 10/04/19 09:15 10/04/19 18:00 Meropenem 500 mg/ Sodium Chloride 55 ml @ 110 mls/hr Q12H IVPB 10/02/19 18:00 10/07/19 17:59 10/04/19 05:10 Midazolam HCl (Versed 2mg/2ml vial) 1 mg Q15M PRN IVP For Anxiety 10/04/19 09:15 10/04/19 18:00 Olanzapine (ZyPREXA) 2.5 mg DAILY ORAL 09/30/19 09:00 11/10/19 08:59 10/03/19 10:31 Olanzapine (ZyPREXA) 5 mg BEDTIME ORAL 09/29/19 21:00 11/10/19 20:59 10/03/19 20:54 Ondansetron HCl (Zofran) 4 mg Q6H PRN IVP Nausea & Vomiting 09/29/19 14:06 10/24/19 14:05 Assessment/Plan Assessment/Plan IMPRESSION: 1. Marked leukocytosis. WBC improved 2. Hypoxemia. On supplemental O2; improved. 3. COPD. 4. intermediate resident. 5. Schizophrenia. 6. Dementia. 7. Hypernatremia; better; now normal DISCUSSION: Agree with empiric antibiotics. Do not suspect COVID-19; pcr x 2 is negative Continue current medications and care. 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 Currently saturating well on low flow O2 Hypernatremic; off hypotonic fluids Decreased free water to 250 ml q 6 I will follow Discussed with ID S/P PEG Discussed with GI Neha Beverly Omar Syed MD October 04, 2019 12:06
--- NOTE | 2019-10-04 13:06 | Cardiac Electrophysiology PN ---
Assessment/Plan Assessment/Plan 1.Sinus bradycardia off any KERR or AVN blockers. Not hypothyroid. 2. History of hypertension. Off antihypertensive agents. 3. 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 Further evaluation by Dr. Howard. 4. Sepsis and leukocytosis. WBC decreasing on Abx 5. Rule out COVID. 6. Dementia and psychosis. 7. Dysphagia, S/P PEG today DW RN Subjective Subjective Confused in restraints. S/P PEG today Objective Last 24 Hour Vital Signs Date Time Temp Pulse Resp B/P (MAP) Pulse Ox O2 Delivery O2 Flow Rate FiO2 10/04/19 09:35 97.6 87 18 152/75 99 Room Air 10/04/19 09:25 88 16 130/79 100 Nasal Cannula 3 10/04/19 09:20 89 14 136/76 100 Nasal Cannula 3 10/04/19 09:14 97.5 90 16 146/77 100 Nasal Cannula 3 10/04/19 09:00 Room Air 10/04/19 08:00 97.6 91 18 159/84 (109) 96 10/04/19 04:00 97.2 97 24 149/92 (111) 96 10/04/19 00:00 98.4 87 22 142/79 (100) 97 10/03/19 21:00 Room Air 10/03/19 20:00 98.4 98 26 145/81 (102) 95 10/03/19 16:00 98.2 77 18 104/51 (68) 98 Intake and Output 10/03/19 10/04/19 19:00 07:00 Intake Total 680 ml 500 ml Output Total 450 ml 1200 ml Balance 230 ml -700 ml Intake Free Water 200 ml 200 ml Tube Feeding 480 ml 300 ml Output Urine Total 450 ml 1200 ml # Bowel Movements 1 1 Laboratory Tests Test 10/04/19 05:20 White Blood Count 12.7 K/UL (4.8-10.8) H Red Blood Count 3.29 M/UL (4.20-5.40) L Hemoglobin 9.2 G/DL (12.0-16.0) L Hematocrit 28.1 % (37.0-47.0) L Mean Corpuscular Volume 85 FL (80-99) Mean Corpuscular Hemoglobin 27.9 PG (27.0-31.0) Mean Corpuscular Hemoglobin Concent 32.7 G/DL (32.0-36.0) Red Cell Distribution Width 12.6 % (11.6-14.8) Platelet Count 334 K/UL (150-450) Mean Platelet Volume 5.0 FL (6.5-10.1) L Neutrophils (%) (Auto) 80.7 % (45.0-75.0) H Lymphocytes (%) (Auto) 11.0 % (20.0-45.0) L Monocytes (%) (Auto) 6.4 % (1.0-10.0) Eosinophils (%) (Auto) 1.2 % (0.0-3.0) Basophils (%) (Auto) 0.7 % (0.0-2.0) Prothrombin Time 12.6 SEC (9.30-11.50) H Prothromb Time International Ratio 1.2 (0.9-1.1) H Sodium Level 137 MMOL/L (136-145) Potassium Level 5.0 MMOL/L (3.5-5.1) Chloride Level 102 MMOL/L (98-107) Carbon Dioxide Level 32 MMOL/L (21-32) Anion Gap 3 mmol/L (5-15) L Blood Urea Nitrogen < 1 mg/dL (7-18) L Creatinine 0.8 MG/DL (0.55-1.30) Estimat Glomerular Filtration Rate > 60 mL/min (>60) Glucose Level 120 MG/DL (74-106) H Calcium Level 8.9 MG/DL (8.5-10.1) Objective HEAD AND NECK: No JVD. LUNGS: Coarse rhonchi. CARDIOVASCULAR: Regular S1, S2 with no gallop. ABDOMEN: Soft.PEG in place EXTREMITIES: No pitting edema. Srinivas Hsieh MD October 04, 2019 13:06
--- NOTE | 2019-10-04 14:15 | Procedure Note ---
DATE OF PROCEDURE: 10/04/2019 SURGEON: Shiv Rodgers MD PROCEDURE: Upper endoscopy with PEG placement. ANESTHESIA: Dr. Dunlap. INSTRUMENT: Olympus adult flexible upper endoscope. INDICATION: Dysphagia. REASON FOR PROCEDURE: The procedure, risks, benefits, and possible consequences, including hemorrhage, aspiration, perforation and infection, and alternative treatments, were explained to the patient/legal guardian by Dr. Shiv Rodgers and the patient/legal guardian understood and accepted these risks. DESCRIPTION OF PROCEDURE: After informed consent was obtained and the patient was adequately sedated, the Olympus upper endoscope was advanced from mouth into the second portion of the duodenum and retroflexion performed. Under endoscopic guidance under sterile condition, a 20-Guamanian push type of G-tube was placed successfully in the epigastric area. The distance from the tip of the tube to skin was about 2 cm in size. The patient tolerated the procedure very well without any complications. SUMMARY OF FINDINGS: Status post successful PEG placement. RECOMMENDATIONS: Abdominal binder. Elevate the head of the bed at all times. G-tube flush. G-tube care. Start tube feeding later today. I want to thank, Dr. Carrillo, for this kind referral. Shiv Rodgers M.D. DR: MADELEINE JOB#: [id number] CC: Sher Carrillo MD.; Fax#: [phone]
--- NOTE | 2019-10-04 15:42 | Surgery Progress Note ---
Surgery Progress Note Subjective Additional Comments peg today comfortable now labs noted exam stable Objective Last 24 Hour Vital Signs Date Time Temp Pulse Resp B/P (MAP) Pulse Ox O2 Delivery O2 Flow Rate FiO2 10/04/19 12:00 97.8 91 17 146/75 (98) 98 10/04/19 09:35 97.6 87 18 152/75 99 Room Air 10/04/19 09:25 88 16 130/79 100 Nasal Cannula 3 10/04/19 09:20 89 14 136/76 100 Nasal Cannula 3 10/04/19 09:14 97.5 90 16 146/77 100 Nasal Cannula 3 10/04/19 09:00 Room Air 10/04/19 08:00 97.6 91 18 159/84 (109) 96 10/04/19 04:00 97.2 97 24 149/92 (111) 96 10/04/19 00:00 98.4 87 22 142/79 (100) 97 10/03/19 21:00 Room Air 10/03/19 20:00 98.4 98 26 145/81 (102) 95 10/03/19 16:00 98.2 77 18 104/51 (68) 98 I&O Intake and Output 10/03/19 10/04/19 19:00 07:00 Intake Total 680 ml 500 ml Output Total 450 ml 1200 ml Balance 230 ml -700 ml Intake Free Water 200 ml 200 ml Tube Feeding 480 ml 300 ml Output Urine Total 450 ml 1200 ml # Bowel Movements 1 1 Dressing: other Wound: other Drains: other Cardiovascular: RSR Respiratory: decreased breath sounds Abdomen: soft, non-tender, present bowel sounds Extremities: no cyanosis Laboratory Tests Test 10/04/19 05:20 White Blood Count 12.7 K/UL (4.8-10.8) H Red Blood Count 3.29 M/UL (4.20-5.40) L Hemoglobin 9.2 G/DL (12.0-16.0) L Hematocrit 28.1 % (37.0-47.0) L Mean Corpuscular Volume 85 FL (80-99) Mean Corpuscular Hemoglobin 27.9 PG (27.0-31.0) Mean Corpuscular Hemoglobin Concent 32.7 G/DL (32.0-36.0) Red Cell Distribution Width 12.6 % (11.6-14.8) Platelet Count 334 K/UL (150-450) Mean Platelet Volume 5.0 FL (6.5-10.1) L Neutrophils (%) (Auto) 80.7 % (45.0-75.0) H Lymphocytes (%) (Auto) 11.0 % (20.0-45.0) L Monocytes (%) (Auto) 6.4 % (1.0-10.0) Eosinophils (%) (Auto) 1.2 % (0.0-3.0) Basophils (%) (Auto) 0.7 % (0.0-2.0) Prothrombin Time 12.6 SEC (9.30-11.50) H Prothromb Time International Ratio 1.2 (0.9-1.1) H Sodium Level 137 MMOL/L (136-145) Potassium Level 5.0 MMOL/L (3.5-5.1) Chloride Level 102 MMOL/L (98-107) Carbon Dioxide Level 32 MMOL/L (21-32) Anion Gap 3 mmol/L (5-15) L Blood Urea Nitrogen < 1 mg/dL (7-18) L Creatinine 0.8 MG/DL (0.55-1.30) Estimat Glomerular Filtration Rate > 60 mL/min (>60) Glucose Level 120 MG/DL (74-106) H Calcium Level 8.9 MG/DL (8.5-10.1) Plan Problems: (1) Decubitus skin ulcer Assessment & Plan: Pt presented on admission with Multiple Pressure injuries. Unstageable Sacral Pressure injury(L)9.5cm x (W)11cm. Base of wound is 75% necrotic 25% mixed slough and erythema. Periwound is indurated with non- blanchable erythema. No odor or exudate noted. Additional open wound in close proximity noted to lower R cleft of buttocks. DTPI Noted to R heel and lateral R heel. Base of wound is fluctuant, purple with maroon borders.(L)7.5cm x (W)11cm.Periwound is blanchable but boggy. DTPI L heel and Lateral aspect. Base of wound is maroon and fluctuant. (L)6.5cm x (W)9.5cm. Periwound is blanchable but boggy. DTPI L 1st Metatarsal Head. Base of wound is fluctuant,purple with surrounding maroon borders.(L)2.5cm x (W)1.5cm. Non-blanching erythema without fluctuance noted to R 1st metatarsal head. Tx.Plan: Cleanse Sacral wound with Saline. Apply Therahoney impregnated Kerlix. Apply Moisture Barrier Paste periwound. Cover with Optifoam drsg. Daily and prn. Apply Cavilon Skin Barrier to R and L Heels. Cover each heel with Optifoam drsg.Change every 7 days and prn. Apply Cavilon Skin Barrier to R and L 1st Metatarsals Daily and prn. Reposition at least every 2hoours or as tolerated. Place Pillow between Knees. Off-load heels with Pillow. APM/KEYONA Mattress overlay. (2) Sepsis Assessment & Plan: leukocytosis, abnormal labs low grade fever COVID eval necessary [facility] patient respiratory support nutrition Urine with UTI pending micro wounds no gross infection rx as written on abx trend labs will follow with recs improving needs repeat swallow eval cont ng tube feed nutrition for now picc for abx s/p peg d/c plan (3) Suspected 2019 novel coronavirus infection (4) Respiratory distress (5) Failure to thrive Assessment & Plan: Mild to moderate Oropharyngeal dysphagia (Level 4 on the MICHI Dysphagia Outcome Severity Scale) with increased oral prep and oropharyngeal transit times due to sensorimotor deficits compounded by cognitive -behavioral deficits (h/o dementia, lethargic, talks with trials in mouth). HIGH ASPIRATION/PENETRATION RISKS AND REDUCED SWALLOW EFFICIENCY DUE TO THE FOLLOWING COMPONENTS/DEFICITS: Oral Impairment Tongue Control Oral residue Initiation of pharyngeal swallow Pharyngeal Impairment Laryngeal elevation (LE) Anterior hyoid excursion (AHE) Epiglottic movement Late and incomplete Laryngeal vestibular closure Pharyngeal stripping wave Tongue base retraction Pharyngeal residue Decrease pharyngeal sensation THIN LIQUIDS: PAS 6 Flash trace aspiration below the vocal folds, Patient able to clear/ejected with multiple swallows. NECTAR THICK LIQUIDS: PAS 4 Radiographic evidence of flash trace penetration to the level of the vocal folds , cleared with multiple swallows. HONEY THICK & PUDDING THICK: PAS 4 Flash penetration to the level of the vocal folds, cleared with multiple swallows. Mild Esophageal Dysphagia: Noted to have trace esophageal retention with no significant retrograde flow, no obstruction to bolus flow noted. WFL cricopharyngeal opening. -Patient is a high risk for recurrent penetration and/or aspiration due to poor swallow efficiency and sensorimotor deficits. Patient also presenting as a high risk for poor PO intake, as s/p nine PO trials, Patient reports feeling lethargic and requesting to rest. Patient did not present with any significant aspiration or penetration, however , there was radiographic evidence of trace aspiration with recovery with thin liquids, flash trace penetration with recovery with nectar thick liquids, and flash trace penetration with recovery with honey thick and pudding thick liquids. - Patient presenting as a high risk for poor PO intake and recurrent penetration /aspiration with PO given Patient's advanced age, h/o FTT, Dementia, aspiration PNA; Therefore, prognosis for Patient's ability to maintain adequate nutrition/ hydration via PO intake is guarded and MD to consider alternative long-term nutrition/hydration. TRIAL TX: Patient unable to consistently follow verbal cues to multiple swallows , effortful swallow, and/or chin tuck . RECOMMENDATIONS: 1.MD to consider termite helper alternative method nutrition/hydration. DAILY ESTIMATED NEEDS: Needs based on Sepsis 54.5kg 25-35 kcals/kg 0962-7550 total kcals 1-2 g protein/kg 55-109 g total protein 25-30ml/kcal mL/kg 2122-7764 total fluid mLs NUTRITION DIAGNOSIS: Increased kcal and pro needs r/t sepsis and wound healing as evidenced by pt adm w/ critically elev WBC, open sacral/ buttock wound, eval pending. CURRENT DIET: NPO PO DIET RECOMMENDATIONS: Liberalized Regular diet/ texture per HYDRO SPRAYER OPERATOR ENTERAL NUTRITION RECOMMENDATIONS: Glucerna 1.5 @40ml/hr x24 hrs to provide 960ml, 1440 kcal, 79g pro, 729ml free H2O - If part of POC, rec to obtain GI access, initiate non oral TFs. - Start Glucerna 1.5 @10ml/hr for 6hrs. Advance as tolerated 10ml/hr q4-6 hrs to goal. - Flush per MD/ HOB over 30 degreed ADDITIONAL RECOMMENDATIONS: 1) With diet order: add BEAN BID. F/up with WC eval 2) Maintain calibrated bed scale wts 3) HYDRO SPRAYER OPERATOR eval for oral diet 4) monitor hydration status 5) Glucerna TID w/ meals for oral diet Sundeep Howard October 04, 2019 15:42
--- NOTE | 2019-10-04 18:03 | Immediate Post-Op Evaluation ---
Immediate Post-Op Evalulation Immediate Post-Op Evalulation Procedure: egd/peg Date of Evaluation: October 04, 2019 Time of Evaluation: 09:26 IV Fluids: 50ml 0.9ns Blood Products: none Estimated Blood Loss: negligible Blood Pressure Systolic: 146 Blood Pressure Diastolic: 77 Pulse Rate: 88 Respiratory Rate: 18 O2 Sat by Pulse Oximetry: 99 Temperature (Fahrenheit): 97.5 Pain Score (1-10): 0 Nausea: No Vomiting: No Complications none Patient Status: awake, reacts, patent Hydration Status: adequate Drug: Addie Peace MD October 04, 2019 18:03
--- NOTE | 2019-10-04 18:05 | 48 Hour Post Anesthesia Eval ---
Post Anesthesia Evaluation Procedure: egd/peg Date of Evaluation: October 04, 2019 Time of Evaluation: 09:28 Blood Pressure Systolic: 130 0: 79 Pulse Rate: 88 Respiratory Rate: 18 Temperature (Fahrenheit): 97.5 O2 Sat by Pulse Oximetry: 99 Airway: patent Nausea: No Vomiting: No Pain Intensity: 0 Hydration Status: adequate Cardiopulmonary Status: stable Mental Status/LOC: patient returned to baseline Post-Anesthesia Complications: none Follow-up care needed: N/A Addie Corona MD October 04, 2019 18:05
--- NOTE | 2019-10-04 20:30 | Progress Note ---
DATE: 10/04/2019 SUBJECTIVE: This is an 89-year-old female came with sepsis, pneumonia and was found has dysphagia and G-tube was placed. Patient is tolerating tube feeding. Doing better. OBJECTIVE: VITAL SIGNS: Blood pressure is 146/75, pulse 91, no fever. CHEST: Bilaterally clear. CARDIOVASCULAR: Regular rhythm. ABDOMEN: Soft. EXTREMITIES: No CCE. LABORATORY DATA: White counts are 13,000, hemoglobin 9.2. Chemistry, BUN 8, creatinine 0.8. ASSESSMENT: 1. Dysphagia. 2. Sepsis. 3. Dementia. 4. Hypertension. PLAN: Continue tube feeding. Continue current treatment. Discharge plan to residential. Sher Carrillo M.D. DR: CRISTOPHER JOB#: [id number] CC:
--- NOTE | 2019-10-04 21:54 | Diagnostic Imaging Report ---
Indications: Dysphagia Technique: Patient ingested multiple substances under the supervision of speech pathology. Video fluoroscopic recording performed. Total fluoroscopy time 172 seconds. Total dose area product 0.19009 mGycm2 Total number of images-9 Comparison: none Findings: Thin liquid barium demonstrated early pooling and delayed pooling in the vallecula and piriform sinuses. Aspiration of thin liquid barium is demonstrated. With ingestion of thin liquid barium, there is early and delayed pooling of contrast. There is deep laryngeal penetration on multiple swallows, and delayed trace aspiration on sequential swallows. With nectar thick liquid barium, there is flash trace penetration to the level of the vocal folds. With honey thick liquid barium and pudding, flash trace penetration to the level of vocal folds is noted. Impression: Positive for trace aspiration of thin liquid barium, penetration multiple substances
[2019-10-05] VITALS: BP 148/93
--- NOTE | 2019-10-05 00:45 | Progress Note ---
DATE: 10/04/2019 SUBJECTIVE: The patient is on bilateral soft restraints. Continues to have episodes of agitation, poor insight, easily agitated. MENTAL STATUS EXAMINATION: Awake, disoriented. Mood is agitated. Affect is flat. Thought process is concrete. Thought content, no suicidal or homicidal ideation. Cognition is impaired. Insight and judgment impaired. ASSESSMENT: 1. Dementia with behavior disturbance. 2. Schizophrenia. PLAN: 1. Olanzapine 5 mg at bedtime. 2. 2.5 in the morning. 3. Discussed with the nurse. John Vanegas M.D. DR: ZACHARY JOB#: [id number] CC:
[2019-10-05 04:00] VITALS: BP 156/84
[2019-10-05] MEDS: Meropenem 500 MG in NS 55 ML IVPB SCH ×2 (05:08→17:48)
--- NOTE | 2019-10-05 07:57 | General Progress Note ---
Assessment/Plan Assessment/Plan: 1. COPD. 2. Schizophrenia. 3. Bradycardia in this admission. 4. anemia 5. FTT s/p PEG GTF monitor for residuals fu labs Subjective ROS Limited/Unobtainable: No Allergies: Coded Allergies: No Known Allergies (Unverified , 09/23/19) Objective Last 24 Hour Vital Signs Date Time Temp Pulse Resp B/P (MAP) Pulse Ox O2 Delivery O2 Flow Rate FiO2 10/05/19 04:00 97.2 111 20 156/84 (108) 98 10/05/19 00:00 97.8 94 20 148/93 (111) 94 10/04/19 21:00 Room Air 10/04/19 20:00 97.3 101 20 151/82 (105) 97 10/04/19 18:05 88 18 99 10/04/19 18:03 88 18 99 10/04/19 16:00 97.9 88 18 132/79 (96) 98 10/04/19 12:00 97.8 91 17 146/75 (98) 98 10/04/19 09:35 97.6 87 18 152/75 99 Room Air 10/04/19 09:25 88 16 130/79 100 Nasal Cannula 3 10/04/19 09:20 89 14 136/76 100 Nasal Cannula 3 10/04/19 09:14 97.5 90 16 146/77 100 Nasal Cannula 3 10/04/19 09:00 Room Air 10/04/19 08:00 97.6 91 18 159/84 (109) 96 Intake and Output 10/04/19 10/05/19 19:00 07:00 Intake Total 495 ml 390 ml Output Total 550 ml 550 ml Balance -55 ml -160 ml Intake Free Water 200 ml 80 ml IV Total 135 ml 30 ml Tube Feeding 160 ml 30 ml Blood Product 250 ml Output Urine Total 550 ml 550 ml # Voids 1 # Bowel Movements 1 1 Height (Feet): 5 Height (Inches): 1.00 Weight (Pounds): 149 General Appearance: no apparent distress EENT: normal ENT inspection Neck: supple Cardiovascular: normal rate Respiratory/Chest: decreased breath sounds Abdomen: normal bowel sounds, non tender, soft Extremities: non-tender Shiv Rodgers MD October 05, 2019 07:57
[2019-10-05 08:00] VITALS: BP 159/83
[2019-10-05] MEDS: OLANZapine 2.5mg tab ORAL SCH (08:47)
--- NOTE | 2019-10-05 09:16 | Pulmonology Progress Note ---
Subjective ROS Limited/Unobtainable: No Interval Events: None new; labs reviewed Constitutional: Denies: fever HEENT: Repors: no symptoms Respiratory: Reports: no symptoms Cardiovascular: Reports: no symptoms Gastrointestinal/Abdominal: Reports: no symptoms Genitourinary: Reports: no symptoms Neurologic: Reports: no symptoms Allergies: Coded Allergies: No Known Allergies (Unverified , 09/23/19) Objective Last 24 Hour Vital Signs Date Time Temp Pulse Resp B/P (MAP) Pulse Ox O2 Delivery O2 Flow Rate FiO2 10/05/19 08:00 97.5 103 18 159/83 (108) 97 10/05/19 04:00 97.2 111 20 156/84 (108) 98 10/05/19 00:00 97.8 94 20 148/93 (111) 94 10/04/19 21:00 Room Air 10/04/19 20:00 97.3 101 20 151/82 (105) 97 10/04/19 18:05 88 18 99 10/04/19 18:03 88 18 99 10/04/19 16:00 97.9 88 18 132/79 (96) 98 10/04/19 12:00 97.8 91 17 146/75 (98) 98 10/04/19 09:35 97.6 87 18 152/75 99 Room Air 10/04/19 09:25 88 16 130/79 100 Nasal Cannula 3 10/04/19 09:20 89 14 136/76 100 Nasal Cannula 3 Intake and Output 10/04/19 10/05/19 19:00 07:00 Intake Total 495 ml 390 ml Output Total 550 ml 550 ml Balance -55 ml -160 ml Intake Free Water 200 ml 80 ml IV Total 135 ml 30 ml Tube Feeding 160 ml 30 ml Blood Product 250 ml Output Urine Total 550 ml 550 ml # Voids 1 # Bowel Movements 1 1 General Appearance: no acute distress HEENT: normocephalic Respiratory: chest wall non-tender, lungs clear Cardiovascular: normal peripheral pulses Abdomen: normal bowel sounds Current Medications Medications (Trade) Dose Ordered Sig/Naya Route PRN Reason Start Time Stop Time Status Last Admin Dose Admin Acetaminophen (Tylenol) 650 mg Q6H PRN ORAL For Headache 09/29/19 14:05 10/24/19 14:04 Diphenhydramine HCl (Benadryl) 50 mg Q6H PRN IVP Itching 09/29/19 14:05 10/24/19 14:04 Haloperidol Lactate (Haldol) 5 mg Q6H PRN IM Agitation 09/29/19 14:06 11/09/19 14:05 Meropenem 500 mg/ Sodium Chloride 55 ml @ 110 mls/hr Q12H IVPB 10/02/19 18:00 10/07/19 17:59 10/05/19 05:08 Olanzapine (ZyPREXA) 2.5 mg DAILY ORAL 09/30/19 09:00 11/10/19 08:59 10/05/19 08:47 Olanzapine (ZyPREXA) 5 mg BEDTIME ORAL 09/29/19 21:00 11/10/19 20:59 10/04/19 21:15 Ondansetron HCl (Zofran) 4 mg Q6H PRN IVP Nausea & Vomiting 09/29/19 14:06 10/24/19 14:05 Assessment/Plan Assessment/Plan IMPRESSION: 1. Marked leukocytosis. WBC improved 2. Hypoxemia. On supplemental O2; improved. 3. COPD. 4. [facility] resident. 5. Schizophrenia. 6. Dementia. 7. Hypernatremia; better; now normal DISCUSSION: Agree with empiric antibiotics. Do not suspect COVID-19; pcr x 2 is negative Continue current medications and care. I will follow carefully as pulmonary senior clinical consultant. Currently saturating well on low flow O2 Hypernatremic; off hypotonic fluids Decreased free water to 250 ml q 6 I will follow Discussed with ID S/P PEG Discussed with GI Neha Beverly Omar Syed MD October 05, 2019 09:16
[2019-10-05 12:00] VITALS: BP 104/63
--- NOTE | 2019-10-05 13:49 | Surgery Progress Note ---
Surgery Progress Note Subjective Symptoms: improved, tolerating diet, passing flatus Objective Last 24 Hour Vital Signs Date Time Temp Pulse Resp B/P (MAP) Pulse Ox O2 Delivery O2 Flow Rate FiO2 10/05/19 12:00 98.0 100 18 104/63 (77) 97 10/05/19 09:00 Room Air 10/05/19 08:00 97.5 103 18 159/83 (108) 97 10/05/19 04:00 97.2 111 20 156/84 (108) 98 10/05/19 00:00 97.8 94 20 148/93 (111) 94 10/04/19 21:00 Room Air 10/04/19 20:00 97.3 101 20 151/82 (105) 97 10/04/19 18:05 88 18 99 10/04/19 18:03 88 18 99 10/04/19 16:00 97.9 88 18 132/79 (96) 98 I&O Intake and Output 10/04/19 10/05/19 19:00 07:00 Intake Total 495 ml 390 ml Output Total 550 ml 550 ml Balance -55 ml -160 ml Intake Free Water 200 ml 80 ml IV Total 135 ml 30 ml Tube Feeding 160 ml 30 ml Blood Product 250 ml Output Urine Total 550 ml 550 ml # Voids 1 # Bowel Movements 1 1 Dressing: other Wound: other Drains: other Cardiovascular: RSR Respiratory: decreased breath sounds Abdomen: soft, non-tender, present bowel sounds Extremities: no cyanosis Plan Problems: (1) Decubitus skin ulcer Assessment & Plan: Pt presented on admission with Multiple Pressure injuries. Unstageable Sacral Pressure injury(L)9.5cm x (W)11cm. Base of wound is 75% necrotic 25% mixed slough and erythema. Periwound is indurated with non- blanchable erythema. No odor or exudate noted. Additional open wound in close proximity noted to lower R cleft of buttocks. DTPI Noted to R heel and lateral R heel. Base of wound is fluctuant, purple with maroon borders.(L)7.5cm x (W)11cm.Periwound is blanchable but boggy. DTPI L heel and Lateral aspect. Base of wound is maroon and fluctuant. (L)6.5cm x (W)9.5cm. Periwound is blanchable but boggy. DTPI L 1st Metatarsal Head. Base of wound is fluctuant,purple with surrounding maroon borders.(L)2.5cm x (W)1.5cm. Non-blanching erythema without fluctuance noted to R 1st metatarsal head. Tx.Plan: Cleanse Sacral wound with Saline. Apply Therahoney impregnated Kerlix. Apply Moisture Barrier Paste periwound. Cover with Optifoam drsg. Daily and prn. Apply Cavilon Skin Barrier to R and L Heels. Cover each heel with Optifoam drsg.Change every 7 days and prn. Apply Cavilon Skin Barrier to R and L 1st Metatarsals Daily and prn. Reposition at least every 2hoours or as tolerated. Place Pillow between Knees. Off-load heels with Pillow. APM/KEYONA Mattress overlay. (2) Sepsis Assessment & Plan: leukocytosis, abnormal labs low grade fever COVID eval necessary skilled nursing patient respiratory support nutrition Urine with UTI pending micro wounds no gross infection rx as written on abx trend labs will follow with recs improving needs repeat swallow eval cont ng tube feed nutrition for now picc for abx s/p peg d/c plan (3) Suspected 2019 novel coronavirus infection (4) Respiratory distress (5) Failure to thrive Assessment & Plan: Mild to moderate Oropharyngeal dysphagia (Level 4 on the MICHI Dysphagia Outcome Severity Scale) with increased oral prep and oropharyngeal transit times due to sensorimotor deficits compounded by cognitive -behavioral deficits (h/o dementia, lethargic, talks with trials in mouth). HIGH ASPIRATION/PENETRATION RISKS AND REDUCED SWALLOW EFFICIENCY DUE TO THE FOLLOWING COMPONENTS/DEFICITS: Oral Impairment Tongue Control Oral residue Initiation of pharyngeal swallow Pharyngeal Impairment Laryngeal elevation (LE) Anterior hyoid excursion (AHE) Epiglottic movement Late and incomplete Laryngeal vestibular closure Pharyngeal stripping wave Tongue base retraction Pharyngeal residue Decrease pharyngeal sensation THIN LIQUIDS: PAS 6 Flash trace aspiration below the vocal folds, Patient able to clear/ejected with multiple swallows. NECTAR THICK LIQUIDS: PAS 4 Radiographic evidence of flash trace penetration to the level of the vocal folds , cleared with multiple swallows. HONEY THICK & PUDDING THICK: PAS 4 Flash penetration to the level of the vocal folds, cleared with multiple swallows. Mild Esophageal Dysphagia: Noted to have trace esophageal retention with no significant retrograde flow, no obstruction to bolus flow noted. WFL cricopharyngeal opening. -Patient is a high risk for recurrent penetration and/or aspiration due to poor swallow efficiency and sensorimotor deficits. Patient also presenting as a high risk for poor PO intake, as s/p nine PO trials, Patient reports feeling lethargic and requesting to rest. Patient did not present with any significant aspiration or penetration, however , there was radiographic evidence of trace aspiration with recovery with thin liquids, flash trace penetration with recovery with nectar thick liquids, and flash trace penetration with recovery with honey thick and pudding thick liquids. - Patient presenting as a high risk for poor PO intake and recurrent penetration /aspiration with PO given Patient's advanced age, h/o FTT, Dementia, aspiration PNA; Therefore, prognosis for Patient's ability to maintain adequate nutrition/ hydration via PO intake is guarded and MD to consider alternative long-term nutrition/hydration. TRIAL TX: Patient unable to consistently follow verbal cues to multiple swallows , effortful swallow, and/or chin tuck . RECOMMENDATIONS: 1.MD to consider technician terminal and repeater alternative method nutrition/hydration. DAILY ESTIMATED NEEDS: Needs based on Sepsis 54.5kg 25-35 kcals/kg 2485-8708 total kcals 1-2 g protein/kg 55-109 g total protein 25-30ml/kcal mL/kg 1568-3984 total fluid mLs NUTRITION DIAGNOSIS: Increased kcal and pro needs r/t sepsis and wound healing as evidenced by pt adm w/ critically elev WBC, open sacral/ buttock wound, eval pending. CURRENT DIET: NPO PO DIET RECOMMENDATIONS: Liberalized Regular diet/ texture per CELLULOSE INSULATION HELPER ENTERAL NUTRITION RECOMMENDATIONS: Glucerna 1.5 @40ml/hr x24 hrs to provide 960ml, 1440 kcal, 79g pro, 729ml free H2O - If part of POC, rec to obtain GI access, initiate non oral TFs. - Start Glucerna 1.5 @10ml/hr for 6hrs. Advance as tolerated 10ml/hr q4-6 hrs to goal. - Flush per MD/ HOB over 30 degreed ADDITIONAL RECOMMENDATIONS: 1) With diet order: add BEAN BID. F/up with WC eval 2) Maintain calibrated bed scale wts 3) CELLULOSE INSULATION HELPER eval for oral diet 4) monitor hydration status 5) Glucerna TID w/ meals for oral diet Sundeep Howard October 05, 2019 13:49
[2019-10-05 16:00] VITALS: BP 136/77
[2019-10-05 20:00] VITALS: BP 146/66
[2019-10-06] VITALS: BP 140/67
--- NOTE | 2019-10-06 00:30 | Discharge Summary ---
DATE OF ADMISSION: 09/23/2019 DATE OF DISCHARGE: 10/05/2019 SUBJECTIVE: This is an already 86-year-old female who came to the hospital, where she was having acute respiratory failure, sepsis, and pneumonia. The patient was treated with IV antibiotics. The patient during this hospital course also was found to have dysphagia. The patient has a G-tube placement, tolerating tube feeding. The patient is physically doing better. HOSPITAL COURSE: The patient had pulmonary and ID consult. DISCHARGE DIAGNOSES: 1. Sepsis. 2. Pneumonia. 3. Dementia. 4. Severe malnutrition. PLAN: We will currently continue antibiotic. Continue bronchodilator treatments. Continue G-tube feeding, and we will discontinue IV antibiotics. [facility] [place] [facility] Sher Carrillo M.D. DR: Matthew JOB#: [id number] CC:
--- NOTE | 2019-10-06 01:45 | Progress Note ---
DATE: 10/05/2019 SUBJECTIVE: The patient is in bed, calm and manageable. He is confused, disoriented. on bilateral self restraints. MENTAL STATUS EXAMINATION: The patient is awake and disoriented. Mood is agitated. Affect is flat. Thought process is concrete. Thought content, no suicidal or homicidal ideation. Cognition is impaired. Insight and judgment are impaired. ASSESSMENT: Psychotic disorder. PLAN: 1. Olanzapine 5 mg at bedtime and 2.5 mg in the morning. 2. Haldol p.r.n. 3. Bilateral restraints. John Vanegas M.D. DR: Fernanda JOB#: [id number] CC: NATHALIE
[2019-10-06 04:00] VITALS: BP 140/62
[2019-10-06] MEDS: Meropenem 500 MG in NS 55 ML IVPB SCH (06:14)
--- NOTE | 2019-10-06 06:57 | General Progress Note ---
Assessment/Plan Assessment/Plan: 1. COPD. 2. Schizophrenia. 3. Bradycardia in this admission. 4. anemia 5. FTT s/p PEG GTF monitor for residuals fu labs Subjective ROS Limited/Unobtainable: No Allergies: Coded Allergies: No Known Allergies (Unverified , 09/23/19) Objective Last 24 Hour Vital Signs Date Time Temp Pulse Resp B/P (MAP) Pulse Ox O2 Delivery O2 Flow Rate FiO2 10/06/19 04:00 98.8 93 20 140/62 (88) 95 10/06/19 00:00 98.6 110 20 140/67 (91) 95 10/05/19 21:00 Room Air 10/05/19 20:00 98.4 103 20 146/66 (92) 95 10/05/19 16:00 98.2 105 18 136/77 (96) 96 10/05/19 12:00 98.0 100 18 104/63 (77) 97 10/05/19 09:00 Room Air 10/05/19 08:00 97.5 103 18 159/83 (108) 97 Intake and Output 10/05/19 10/06/19 19:00 07:00 Intake Total 510 ml Balance 510 ml Intake Free Water 180 ml Tube Feeding 330 ml # Voids 2 1 Height (Feet): 5 Height (Inches): 1.00 Weight (Pounds): 149 General Appearance: no apparent distress EENT: normal ENT inspection Neck: supple Cardiovascular: normal rate Respiratory/Chest: decreased breath sounds Abdomen: normal bowel sounds, non tender, soft Extremities: non-tender Shiv Rodgers MD October 06, 2019 06:57
--- NOTE | 2019-10-06 07:28 | Cardiac Electrophysiology PN ---
Assessment/Plan Assessment/Plan 1.Sinus bradycardia off any KERR or AVN blockers. Not hypothyroid. 2. History of hypertension. Off antihypertensive agents. 3. 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 Further evaluation by Dr. Howard. 4. Sepsis and leukocytosis. WBC decreasing on Abx 5. Rule out COVID. 6. Dementia and psychosis. 7. Dysphagia, S/P PEG DW RN Subjective Subjective Nonverbal in restraints. S/P PEG with feeding ongoing . On Room Air Objective Last 24 Hour Vital Signs Date Time Temp Pulse Resp B/P (MAP) Pulse Ox O2 Delivery O2 Flow Rate FiO2 10/06/19 04:00 98.8 93 20 140/62 (88) 95 10/06/19 00:00 98.6 110 20 140/67 (91) 95 10/05/19 21:00 Room Air 10/05/19 20:00 98.4 103 20 146/66 (92) 95 10/05/19 16:00 98.2 105 18 136/77 (96) 96 10/05/19 12:00 98.0 100 18 104/63 (77) 97 10/05/19 09:00 Room Air 10/05/19 08:00 97.5 103 18 159/83 (108) 97 Intake and Output 10/05/19 10/06/19 19:00 07:00 Intake Total 510 ml Balance 510 ml Intake Free Water 180 ml Tube Feeding 330 ml # Voids 2 1 Objective HEAD AND NECK: No JVD. LUNGS: Coarse rhonchi. CARDIOVASCULAR: Regular S1, S2 with no gallop. ABDOMEN: Soft.PEG in place EXTREMITIES: No pitting edema. Srinivas Hsieh MD October 06, 2019 07:28
--- NOTE | 2019-10-06 07:43 | Pulmonology Progress Note ---
Subjective ROS Limited/Unobtainable: No Interval Events: None new; labs reviewed Constitutional: Denies: fever HEENT: Repors: no symptoms Respiratory: Reports: no symptoms Cardiovascular: Reports: no symptoms Gastrointestinal/Abdominal: Reports: no symptoms Genitourinary: Reports: no symptoms Neurologic: Reports: no symptoms Allergies: Coded Allergies: No Known Allergies (Unverified , 09/23/19) Objective Last 24 Hour Vital Signs Date Time Temp Pulse Resp B/P (MAP) Pulse Ox O2 Delivery O2 Flow Rate FiO2 10/06/19 04:00 98.8 93 20 140/62 (88) 95 10/06/19 00:00 98.6 110 20 140/67 (91) 95 10/05/19 21:00 Room Air 10/05/19 20:00 98.4 103 20 146/66 (92) 95 10/05/19 16:00 98.2 105 18 136/77 (96) 96 10/05/19 12:00 98.0 100 18 104/63 (77) 97 10/05/19 09:00 Room Air 10/05/19 08:00 97.5 103 18 159/83 (108) 97 Intake and Output 10/05/19 10/06/19 18:59 06:59 Intake Total 540 ml Balance 540 ml Intake Free Water 180 ml Tube Feeding 360 ml # Voids 2 1 General Appearance: no acute distress HEENT: normocephalic Respiratory: chest wall non-tender, lungs clear Cardiovascular: normal peripheral pulses Abdomen: normal bowel sounds Current Medications Medications (Trade) Dose Ordered Sig/Naya Route PRN Reason Start Time Stop Time Status Last Admin Dose Admin Acetaminophen (Tylenol) 650 mg Q6H PRN ORAL For Headache 09/29/19 14:05 10/24/19 14:04 Diphenhydramine HCl (Benadryl) 50 mg Q6H PRN IVP Itching 09/29/19 14:05 10/24/19 14:04 Haloperidol Lactate (Haldol) 5 mg Q6H PRN IM Agitation 09/29/19 14:06 11/09/19 14:05 Meropenem 500 mg/ Sodium Chloride 55 ml @ 110 mls/hr Q12H IVPB 10/02/19 18:00 10/07/19 17:59 10/06/19 06:14 Olanzapine (ZyPREXA) 2.5 mg DAILY ORAL 09/30/19 09:00 11/10/19 08:59 10/05/19 08:47 Olanzapine (ZyPREXA) 5 mg BEDTIME ORAL 09/29/19 21:00 11/10/19 20:59 10/05/19 21:18 Ondansetron HCl (Zofran) 4 mg Q6H PRN IVP Nausea & Vomiting 09/29/19 14:06 10/24/19 14:05 Assessment/Plan Assessment/Plan IMPRESSION: 1. Marked leukocytosis. WBC improved 2. Hypoxemia. On supplemental O2; improved. 3. COPD. 4. detention resident. 5. Schizophrenia. 6. Dementia. 7. Hypernatremia; better; now normal DISCUSSION: Agree with empiric antibiotics. Do not suspect COVID-19; pcr x 2 is negative Continue current medications and care. I will follow carefully as pulmonary garden consultant. Currently saturating well on low flow O2 Hypernatremic; off hypotonic fluids Decreased free water to 250 ml q 6 I will follow Discussed with ID S/P PEG Discussed with GI Neha Beverly Omar Syed MD October 06, 2019 07:43
[2019-10-06 08:00] VITALS: BP 144/88
[2019-10-06 08:37] LABS: BASOPHILS % (AUTO) 0.6 % (0.0-2.0); EOSINOPHILS % (AUTO) 0.9 % (0.0-3.0); HEMATOCRIT 26.4 % (37.0-47.0); HEMOGLOBIN 8.8 G/DL (12.0-16.0); MEAN CORPUSCULAR VOLUME 85 FL (80-99); MONOCYTES % (AUTO) 7.3 % (1.0-10.0); NEUTROPHILS % (AUTO) 78.2 % (45.0-75.0); PLATELET COUNT 381 K/UL (150-450); RED BLOOD COUNT 3.12 M/UL (4.20-5.40); RED CELL DISTRIBUTION WIDTH 12.2 % (11.6-14.8); WHITE BLOOD COUNT 9.5 K/UL (4.8-10.8)
[2019-10-06 08:55] LABS: ANION GAP 6 mmol/L (5-15); BLOOD UREA NITROGEN 33 mg/dL (7-18); CALCIUM 8.5 MG/DL (8.5-10.1); CARBON DIOXIDE 29 MMOL/L (21-32); CHLORIDE 102 MMOL/L (98-107); CREATININE 0.9 MG/DL (0.55-1.30); POTASSIUM 4.4 MMOL/L (3.5-5.1); SODIUM 137 MMOL/L (136-145)
[2019-10-06] MEDS: OLANZapine 2.5mg tab ORAL SCH (09:06)
[2019-10-06 12:00] VITALS: BP 137/64
--- NOTE | 2019-10-06 12:45 | Surgery Progress Note ---
Surgery Progress Note Subjective Additional Comments stable comfortable residuals okay monitoring Objective Last 24 Hour Vital Signs Date Time Temp Pulse Resp B/P (MAP) Pulse Ox O2 Delivery O2 Flow Rate FiO2 10/06/19 12:00 97.9 80 18 137/64 (88) 97 10/06/19 09:00 Room Air 10/06/19 08:00 97.2 90 20 144/88 (106) 92 10/06/19 04:00 98.8 93 20 140/62 (88) 95 10/06/19 00:00 98.6 110 20 140/67 (91) 95 10/05/19 21:00 Room Air 10/05/19 20:00 98.4 103 20 146/66 (92) 95 10/05/19 16:00 98.2 105 18 136/77 (96) 96 I&O Intake and Output 10/05/19 10/06/19 19:00 07:00 Intake Total 510 ml 120 ml Balance 510 ml 120 ml Intake Free Water 180 ml 60 ml Tube Feeding 330 ml 60 ml # Voids 2 1 Dressing: other Wound: other Drains: other Cardiovascular: RSR Respiratory: decreased breath sounds Abdomen: soft, non-tender, present bowel sounds Extremities: no cyanosis Laboratory Tests Test 10/06/19 07:31 White Blood Count 9.5 K/UL (4.8-10.8) Red Blood Count 3.12 M/UL (4.20-5.40) L Hemoglobin 8.8 G/DL (12.0-16.0) L Hematocrit 26.4 % (37.0-47.0) L Mean Corpuscular Volume 85 FL (80-99) Mean Corpuscular Hemoglobin 28.3 PG (27.0-31.0) Mean Corpuscular Hemoglobin Concent 33.5 G/DL (32.0-36.0) Red Cell Distribution Width 12.2 % (11.6-14.8) Platelet Count 381 K/UL (150-450) Mean Platelet Volume 4.8 FL (6.5-10.1) L Neutrophils (%) (Auto) 78.2 % (45.0-75.0) H Lymphocytes (%) (Auto) 13.0 % (20.0-45.0) L Monocytes (%) (Auto) 7.3 % (1.0-10.0) Eosinophils (%) (Auto) 0.9 % (0.0-3.0) Basophils (%) (Auto) 0.6 % (0.0-2.0) Sodium Level 137 MMOL/L (136-145) Potassium Level 4.4 MMOL/L (3.5-5.1) Chloride Level 102 MMOL/L (98-107) Carbon Dioxide Level 29 MMOL/L (21-32) Anion Gap 6 mmol/L (5-15) Blood Urea Nitrogen 33 mg/dL (7-18) H Creatinine 0.9 MG/DL (0.55-1.30) Estimat Glomerular Filtration Rate > 60 mL/min (>60) Glucose Level 149 MG/DL (74-106) H Calcium Level 8.5 MG/DL (8.5-10.1) Plan Problems: (1) Decubitus skin ulcer Assessment & Plan: Pt presented on admission with Multiple Pressure injuries. Unstageable Sacral Pressure injury(L)9.5cm x (W)11cm. Base of wound is 75% necrotic 25% mixed slough and erythema. Periwound is indurated with non- blanchable erythema. No odor or exudate noted. Additional open wound in close proximity noted to lower R cleft of buttocks. DTPI Noted to R heel and lateral R heel. Base of wound is fluctuant, purple with maroon borders.(L)7.5cm x (W)11cm.Periwound is blanchable but boggy. DTPI L heel and Lateral aspect. Base of wound is maroon and fluctuant. (L)6.5cm x (W)9.5cm. Periwound is blanchable but boggy. DTPI L 1st Metatarsal Head. Base of wound is fluctuant,purple with surrounding maroon borders.(L)2.5cm x (W)1.5cm. Non-blanching erythema without fluctuance noted to R 1st metatarsal head. Tx.Plan: Cleanse Sacral wound with Saline. Apply Therahoney impregnated Kerlix. Apply Moisture Barrier Paste periwound. Cover with Optifoam drsg. Daily and prn. Apply Cavilon Skin Barrier to R and L Heels. Cover each heel with Optifoam drsg.Change every 7 days and prn. Apply Cavilon Skin Barrier to R and L 1st Metatarsals Daily and prn. Reposition at least every 2hoours or as tolerated. Place Pillow between Knees. Off-load heels with Pillow. APM/KEYONA Mattress overlay. (2) Sepsis Assessment & Plan: leukocytosis, abnormal labs low grade fever COVID eval necessary intermediate patient respiratory support nutrition Urine with UTI pending micro wounds no gross infection rx as written on abx trend labs will follow with recs improving needs repeat swallow eval cont ng tube feed nutrition for now picc for abx s/p peg d/c plan (3) Suspected 2019 novel coronavirus infection (4) Respiratory distress (5) Failure to thrive Assessment & Plan: Mild to moderate Oropharyngeal dysphagia (Level 4 on the MICHI Dysphagia Outcome Severity Scale) with increased oral prep and oropharyngeal transit times due to sensorimotor deficits compounded by cognitive -behavioral deficits (h/o dementia, lethargic, talks with trials in mouth). HIGH ASPIRATION/PENETRATION RISKS AND REDUCED SWALLOW EFFICIENCY DUE TO THE FOLLOWING COMPONENTS/DEFICITS: Oral Impairment Tongue Control Oral residue Initiation of pharyngeal swallow Pharyngeal Impairment Laryngeal elevation (LE) Anterior hyoid excursion (AHE) Epiglottic movement Late and incomplete Laryngeal vestibular closure Pharyngeal stripping wave Tongue base retraction Pharyngeal residue Decrease pharyngeal sensation THIN LIQUIDS: PAS 6 Flash trace aspiration below the vocal folds, Patient able to clear/ejected with multiple swallows. NECTAR THICK LIQUIDS: PAS 4 Radiographic evidence of flash trace penetration to the level of the vocal folds , cleared with multiple swallows. HONEY THICK & PUDDING THICK: PAS 4 Flash penetration to the level of the vocal folds, cleared with multiple swallows. Mild Esophageal Dysphagia: Noted to have trace esophageal retention with no significant retrograde flow, no obstruction to bolus flow noted. WFL cricopharyngeal opening. -Patient is a high risk for recurrent penetration and/or aspiration due to poor swallow efficiency and sensorimotor deficits. Patient also presenting as a high risk for poor PO intake, as s/p nine PO trials, Patient reports feeling lethargic and requesting to rest. Patient did not present with any significant aspiration or penetration, however , there was radiographic evidence of trace aspiration with recovery with thin liquids, flash trace penetration with recovery with nectar thick liquids, and flash trace penetration with recovery with honey thick and pudding thick liquids. - Patient presenting as a high risk for poor PO intake and recurrent penetration /aspiration with PO given Patient's advanced age, h/o FTT, Dementia, aspiration PNA; Therefore, prognosis for Patient's ability to maintain adequate nutrition/ hydration via PO intake is guarded and MD to consider alternative long-term nutrition/hydration. TRIAL TX: Patient unable to consistently follow verbal cues to multiple swallows , effortful swallow, and/or chin tuck . RECOMMENDATIONS: 1.MD to consider chcf alternative method nutrition/hydration. DAILY ESTIMATED NEEDS: Needs based on Sepsis 54.5kg 25-35 kcals/kg 9470-3566 total kcals 1-2 g protein/kg 55-109 g total protein 25-30ml/kcal mL/kg 0158-2023 total fluid mLs NUTRITION DIAGNOSIS: Increased kcal and pro needs r/t sepsis and wound healing as evidenced by pt adm w/ critically elev WBC, open sacral/ buttock wound, eval pending. CURRENT DIET: NPO PO DIET RECOMMENDATIONS: Liberalized Regular diet/ texture per CLINICAL DOCUMENTATION MANAGER ENTERAL NUTRITION RECOMMENDATIONS: Glucerna 1.5 @40ml/hr x24 hrs to provide 960ml, 1440 kcal, 79g pro, 729ml free H2O - If part of POC, rec to obtain GI access, initiate non oral TFs. - Start Glucerna 1.5 @10ml/hr for 6hrs. Advance as tolerated 10ml/hr q4-6 hrs to goal. - Flush per MD/ HOB over 30 degreed ADDITIONAL RECOMMENDATIONS: 1) With diet order: add BEAN BID. F/up with WC eval 2) Maintain calibrated bed scale wts 3) CLINICAL DOCUMENTATION MANAGER eval for oral diet 4) monitor hydration status 5) Glucerna TID w/ meals for oral diet Findings: Thin liquid barium demonstrated early pooling and delayed pooling in the vallecula and piriform sinuses. Aspiration of thin liquid barium is demonstrated. With ingestion of thin liquid barium, there is early and delayed pooling of contrast. There is deep laryngeal penetration on multiple swallows, and delayed trace aspiration on sequential swallows. With nectar thick liquid barium, there is flash trace penetration to the level of the vocal folds. With honey thick liquid barium and pudding, flash trace penetration to the level of vocal folds is noted. Impression: Positive for trace aspiration of thin liquid barium, penetration multiple substances Sundeep Howard October 06, 2019 12:45
--- NOTE | 2019-10-06 13:33 | Infectious Diseases Prog Note ---
Assessment/Plan Assessment/Plan A 1. Pneumonia COVID-19 X 2: negative 2. Hypertension. 3. Dementia. 4. Acute renal failure improving 5. leucocytosis improving P 1. Discontinue Meropenem 2. Observe off antibiotic . Subjective ROS Limited/Unobtainable: Yes Allergies: Coded Allergies: No Known Allergies (Unverified , 09/23/19) Objective Vital Signs Last 24 Hour Vital Signs Date Time Temp Pulse Resp B/P (MAP) Pulse Ox O2 Delivery O2 Flow Rate FiO2 10/06/19 12:00 97.9 80 18 137/64 (88) 97 10/06/19 09:00 Room Air 10/06/19 08:00 97.2 90 20 144/88 (106) 92 10/06/19 04:00 98.8 93 20 140/62 (88) 95 10/06/19 00:00 98.6 110 20 140/67 (91) 95 10/05/19 21:00 Room Air 10/05/19 20:00 98.4 103 20 146/66 (92) 95 10/05/19 16:00 98.2 105 18 136/77 (96) 96 Height (Feet): 5 Height (Inches): 1.00 Weight (Pounds): 149 General Appearance: no acute distress HEENT: mucous membranes moist Respiratory/Chest: lungs clear Cardiovascular: normal rate Abdomen: soft, non tender, other - GT feeding Extremities: no edema Neurologic/Psychiatric: other - sleeping Laboratory Tests Test 10/06/19 07:31 White Blood Count 9.5 K/UL (4.8-10.8) Red Blood Count 3.12 M/UL (4.20-5.40) L Hemoglobin 8.8 G/DL (12.0-16.0) L Hematocrit 26.4 % (37.0-47.0) L Mean Corpuscular Volume 85 FL (80-99) Mean Corpuscular Hemoglobin 28.3 PG (27.0-31.0) Mean Corpuscular Hemoglobin Concent 33.5 G/DL (32.0-36.0) Red Cell Distribution Width 12.2 % (11.6-14.8) Platelet Count 381 K/UL (150-450) Mean Platelet Volume 4.8 FL (6.5-10.1) L Neutrophils (%) (Auto) 78.2 % (45.0-75.0) H Lymphocytes (%) (Auto) 13.0 % (20.0-45.0) L Monocytes (%) (Auto) 7.3 % (1.0-10.0) Eosinophils (%) (Auto) 0.9 % (0.0-3.0) Basophils (%) (Auto) 0.6 % (0.0-2.0) Sodium Level 137 MMOL/L (136-145) Potassium Level 4.4 MMOL/L (3.5-5.1) Chloride Level 102 MMOL/L (98-107) Carbon Dioxide Level 29 MMOL/L (21-32) Anion Gap 6 mmol/L (5-15) Blood Urea Nitrogen 33 mg/dL (7-18) H Creatinine 0.9 MG/DL (0.55-1.30) Estimat Glomerular Filtration Rate > 60 mL/min (>60) Glucose Level 149 MG/DL (74-106) H Calcium Level 8.5 MG/DL (8.5-10.1) Current Medications Medications (Trade) Dose Ordered Sig/Naya Route PRN Reason Start Time Stop Time Status Last Admin Dose Admin Acetaminophen (Tylenol) 650 mg Q6H PRN ORAL For Headache 09/29/19 14:05 10/24/19 14:04 Diphenhydramine HCl (Benadryl) 50 mg Q6H PRN IVP Itching 09/29/19 14:05 10/24/19 14:04 Haloperidol Lactate (Haldol) 5 mg Q6H PRN IM Agitation 09/29/19 14:06 11/09/19 14:05 Meropenem 500 mg/ Sodium Chloride 55 ml @ 110 mls/hr Q12H IVPB 10/02/19 18:00 10/07/19 17:59 10/06/19 06:14 Olanzapine (ZyPREXA) 2.5 mg DAILY ORAL 09/30/19 09:00 11/10/19 08:59 10/06/19 09:06 Olanzapine (ZyPREXA) 5 mg BEDTIME ORAL 09/29/19 21:00 11/10/19 20:59 10/05/19 21:18 Ondansetron HCl (Zofran) 4 mg Q6H PRN IVP Nausea & Vomiting 09/29/19 14:06 10/24/19 14:05 Cesar Ludwig MD October 06, 2019 13:33
[2019-10-06 16:00] VITALS: BP 128/76
[2019-10-06 20:00] VITALS: BP 137/62
[2019-10-07] VITALS: BP 131/75
[2019-10-07 04:00] VITALS: BP 150/68
--- NOTE | 2019-10-07 06:30 | Progress Note ---
DATE: 10/06/2019 SUBJECTIVE: The patient is in bed, confused, disoriented, episodes of agitation, poor insight. MENTAL STATUS EXAMINATION: Patient is awake, oriented to dustin Mood is agitated. Affect is flat. Thought process is concrete. Thought content, no suicidal or homicidal ideation. Cognition is impaired. Insight and judgment are impaired. ASSESSMENT: Dementia with behavior disturbance. PLAN: 1. Continue control. 2. Gregorio p.r.n. 3. Discussed with the nurse. John Vanegas M.D. DR: KARIN JOB#: [id number] CC: NATHALIE
[2019-10-07 08:00] VITALS: BP 144/75
[2019-10-07] MEDS: OLANZapine 2.5mg tab ORAL SCH (09:30)
--- NOTE | 2019-10-07 10:08 | General Progress Note ---
Assessment/Plan Assessment/Plan: 1. COPD. 2. Schizophrenia. 3. Bradycardia in this admission. 4. anemia 5. FTT s/p PEG GTF monitor for residuals fu labs Subjective ROS Limited/Unobtainable: No Allergies: Coded Allergies: No Known Allergies (Unverified , 09/23/19) Objective Last 24 Hour Vital Signs Date Time Temp Pulse Resp B/P (MAP) Pulse Ox O2 Delivery O2 Flow Rate FiO2 10/07/19 04:00 98.1 22 150/68 (95) 96 10/07/19 00:00 99.0 100 24 131/75 (93) 95 10/06/19 21:00 Room Air 10/06/19 20:00 98.6 98 24 137/62 (87) 95 10/06/19 16:00 97.6 96 18 128/76 (93) 99 10/06/19 12:00 97.9 80 18 137/64 (88) 97 Intake and Output 10/06/19 10/07/19 18:59 06:59 Intake Total 1020 ml 1020 ml Output Total 500 ml Balance 1020 ml 520 ml Intake Free Water 240 ml 240 ml Tube Feeding 780 ml 780 ml Output Urine Total 500 ml Height (Feet): 5 Height (Inches): 1.00 Weight (Pounds): 149 General Appearance: no apparent distress EENT: normal ENT inspection Neck: supple Cardiovascular: normal rate Respiratory/Chest: decreased breath sounds Abdomen: normal bowel sounds, non tender, soft Extremities: non-tender Shiv Rodgers MD Oct 07, 2019 10:08
--- NOTE | 2019-10-07 10:32 | Pulmonology Progress Note ---
Subjective ROS Limited/Unobtainable: No Interval Events: None new; labs reviewed Constitutional: Denies: fever HEENT: Repors: no symptoms Respiratory: Reports: no symptoms Cardiovascular: Reports: no symptoms Gastrointestinal/Abdominal: Reports: no symptoms Genitourinary: Reports: no symptoms Neurologic: Reports: no symptoms Allergies: Coded Allergies: No Known Allergies (Unverified , 09/23/19) Objective Last 24 Hour Vital Signs Date Time Temp Pulse Resp B/P (MAP) Pulse Ox O2 Delivery O2 Flow Rate FiO2 10/07/19 04:00 98.1 22 150/68 (95) 96 10/07/19 00:00 99.0 100 24 131/75 (93) 95 10/06/19 21:00 Room Air 10/06/19 20:00 98.6 98 24 137/62 (87) 95 10/06/19 16:00 97.6 96 18 128/76 (93) 99 10/06/19 12:00 97.9 80 18 137/64 (88) 97 Intake and Output 10/06/19 10/07/19 19:00 07:00 Intake Total 1020 ml 900 ml Output Total 500 ml Balance 1020 ml 400 ml Intake Free Water 240 ml 180 ml Tube Feeding 780 ml 720 ml Output Urine Total 500 ml General Appearance: no acute distress HEENT: normocephalic Respiratory: chest wall non-tender, lungs clear Cardiovascular: normal peripheral pulses Abdomen: normal bowel sounds Current Medications Medications (Trade) Dose Ordered Sig/Naya Route PRN Reason Start Time Stop Time Status Last Admin Dose Admin Acetaminophen (Tylenol) 650 mg Q6H PRN ORAL For Headache 09/29/19 14:05 10/24/19 14:04 Diphenhydramine HCl (Benadryl) 50 mg Q6H PRN IVP Itching 09/29/19 14:05 10/24/19 14:04 Haloperidol Lactate (Haldol) 5 mg Q6H PRN IM Agitation 09/29/19 14:06 11/09/19 14:05 Olanzapine (ZyPREXA) 2.5 mg DAILY ORAL 09/30/19 09:00 11/10/19 08:59 10/07/19 09:30 Olanzapine (ZyPREXA) 5 mg BEDTIME ORAL 09/29/19 21:00 11/10/19 20:59 10/06/19 20:37 Ondansetron HCl (Zofran) 4 mg Q6H PRN IVP Nausea & Vomiting 09/29/19 14:06 10/24/19 14:05 Assessment/Plan Assessment/Plan IMPRESSION: 1. Marked leukocytosis. WBC improved 2. Hypoxemia. On supplemental O2; improved. 3. COPD. 4. long-term resident. 5. Schizophrenia. 6. Dementia. 7. Hypernatremia; better; now normal DISCUSSION: Agree with empiric antibiotics. Do not suspect COVID-19; pcr x 2 is negative Continue current medications and care. I will follow carefully as pulmonary [facility] ascp consultant. Currently saturating well on low flow O2 Hypernatremic; off hypotonic fluids Decreased free water to 250 ml q 6 I will follow Discussed with ID S/P PEG Discussed with GI Neha Beverly Omar Syed MD Oct 07, 2019 10:32
--- NOTE | 2019-10-07 11:03 | Infectious Diseases Prog Note ---
Assessment/Plan Assessment/Plan antibiotics ; none A 1. Pneumonia s/p rx COVID-19 test negative x 2 2. Hypertension. 3. Dementia. 4. Renal failure improving 5. leucocytosis resolved P 1. continue off antibiotics Subjective ROS Limited/Unobtainable: Yes Allergies: Coded Allergies: No Known Allergies (Unverified , 09/23/19) Objective Vital Signs Last 24 Hour Vital Signs Date Time Temp Pulse Resp B/P (MAP) Pulse Ox O2 Delivery O2 Flow Rate FiO2 10/07/19 04:00 98.1 22 150/68 (95) 96 10/07/19 00:00 99.0 100 24 131/75 (93) 95 10/06/19 21:00 Room Air 10/06/19 20:00 98.6 98 24 137/62 (87) 95 10/06/19 16:00 97.6 96 18 128/76 (93) 99 10/06/19 12:00 97.9 80 18 137/64 (88) 97 Height (Feet): 5 Height (Inches): 1.00 Weight (Pounds): 149 Respiratory/Chest: lungs clear Cardiovascular: normal rate, regular rhythm, no gallop/murmur Abdomen: soft, non tender, other - GT Extremities: no edema Current Medications Medications (Trade) Dose Ordered Sig/Naya Route PRN Reason Start Time Stop Time Status Last Admin Dose Admin Acetaminophen (Tylenol) 650 mg Q6H PRN ORAL For Headache 09/29/19 14:05 10/24/19 14:04 Diphenhydramine HCl (Benadryl) 50 mg Q6H PRN IVP Itching 09/29/19 14:05 10/24/19 14:04 Haloperidol Lactate (Haldol) 5 mg Q6H PRN IM Agitation 09/29/19 14:06 11/09/19 14:05 Olanzapine (ZyPREXA) 2.5 mg DAILY ORAL 09/30/19 09:00 11/10/19 08:59 10/07/19 09:30 Olanzapine (ZyPREXA) 5 mg BEDTIME ORAL 09/29/19 21:00 11/10/19 20:59 10/06/19 20:37 Ondansetron HCl (Zofran) 4 mg Q6H PRN IVP Nausea & Vomiting 09/29/19 14:06 10/24/19 14:05 Mazin Skinner MD Oct 07, 2019 11:03
[2019-10-07 12:00] VITALS: BP 140/78
--- NOTE | 2019-10-07 13:02 | Surgery Progress Note ---
Surgery Progress Note Subjective Symptoms: improved, tolerating diet, passing flatus Objective Last 24 Hour Vital Signs Date Time Temp Pulse Resp B/P (MAP) Pulse Ox O2 Delivery O2 Flow Rate FiO2 10/07/19 09:00 Room Air 10/07/19 08:00 98.4 86 21 144/75 (98) 97 10/07/19 04:00 98.1 22 150/68 (95) 96 10/07/19 00:00 99.0 100 24 131/75 (93) 95 10/06/19 21:00 Room Air 10/06/19 20:00 98.6 98 24 137/62 (87) 95 10/06/19 16:00 97.6 96 18 128/76 (93) 99 I&O Intake and Output 10/06/19 10/07/19 19:00 07:00 Intake Total 1020 ml 900 ml Output Total 500 ml Balance 1020 ml 400 ml Intake Free Water 240 ml 180 ml Tube Feeding 780 ml 720 ml Output Urine Total 500 ml Dressing: dry Wound: clean, dry Cardiovascular: RSR Respiratory: clear Abdomen: soft, non-tender, present bowel sounds Extremities: no edema, no tenderness, no cyanosis Plan Problems: (1) Decubitus skin ulcer Assessment & Plan: Pt presented on admission with Multiple Pressure injuries. Unstageable Sacral Pressure injury(L)9.5cm x (W)11cm. Base of wound is 75% necrotic 25% mixed slough and erythema. Periwound is indurated with non- blanchable erythema. No odor or exudate noted. Additional open wound in close proximity noted to lower R cleft of buttocks. DTPI Noted to R heel and lateral R heel. Base of wound is fluctuant, purple with maroon borders.(L)7.5cm x (W)11cm.Periwound is blanchable but boggy. DTPI L heel and Lateral aspect. Base of wound is maroon and fluctuant. (L)6.5cm x (W)9.5cm. Periwound is blanchable but boggy. DTPI L 1st Metatarsal Head. Base of wound is fluctuant,purple with surrounding maroon borders.(L)2.5cm x (W)1.5cm. Non-blanching erythema without fluctuance noted to R 1st metatarsal head. Tx.Plan: Cleanse Sacral wound with Saline. Apply Therahoney impregnated Kerlix. Apply Moisture Barrier Paste periwound. Cover with Optifoam drsg. Daily and prn. Apply Cavilon Skin Barrier to R and L Heels. Cover each heel with Optifoam drsg.Change every 7 days and prn. Apply Cavilon Skin Barrier to R and L 1st Metatarsals Daily and prn. Reposition at least every 2hoours or as tolerated. Place Pillow between Knees. Off-load heels with Pillow. APM/KEYONA Mattress overlay. (2) Sepsis Assessment & Plan: leukocytosis, abnormal labs low grade fever COVID eval necessary fci patient respiratory support nutrition Urine with UTI pending micro wounds no gross infection rx as written on abx trend labs will follow with recs improving needs repeat swallow eval cont ng tube feed nutrition for now picc for abx s/p peg d/c plan (3) Suspected 2019 novel coronavirus infection (4) Respiratory distress (5) Failure to thrive Assessment & Plan: Mild to moderate Oropharyngeal dysphagia (Level 4 on the MICHI Dysphagia Outcome Severity Scale) with increased oral prep and oropharyngeal transit times due to sensorimotor deficits compounded by cognitive -behavioral deficits (h/o dementia, lethargic, talks with trials in mouth). HIGH ASPIRATION/PENETRATION RISKS AND REDUCED SWALLOW EFFICIENCY DUE TO THE FOLLOWING COMPONENTS/DEFICITS: Oral Impairment Tongue Control Oral residue Initiation of pharyngeal swallow Pharyngeal Impairment Laryngeal elevation (LE) Anterior hyoid excursion (AHE) Epiglottic movement Late and incomplete Laryngeal vestibular closure Pharyngeal stripping wave Tongue base retraction Pharyngeal residue Decrease pharyngeal sensation THIN LIQUIDS: PAS 6 Flash trace aspiration below the vocal folds, Patient able to clear/ejected with multiple swallows. NECTAR THICK LIQUIDS: PAS 4 Radiographic evidence of flash trace penetration to the level of the vocal folds , cleared with multiple swallows. HONEY THICK & PUDDING THICK: PAS 4 Flash penetration to the level of the vocal folds, cleared with multiple swallows. Mild Esophageal Dysphagia: Noted to have trace esophageal retention with no significant retrograde flow, no obstruction to bolus flow noted. WFL cricopharyngeal opening. -Patient is a high risk for recurrent penetration and/or aspiration due to poor swallow efficiency and sensorimotor deficits. Patient also presenting as a high risk for poor PO intake, as s/p nine PO trials, Patient reports feeling lethargic and requesting to rest. Patient did not present with any significant aspiration or penetration, however , there was radiographic evidence of trace aspiration with recovery with thin liquids, flash trace penetration with recovery with nectar thick liquids, and flash trace penetration with recovery with honey thick and pudding thick liquids. - Patient presenting as a high risk for poor PO intake and recurrent penetration /aspiration with PO given Patient's advanced age, h/o FTT, Dementia, aspiration PNA; Therefore, prognosis for Patient's ability to maintain adequate nutrition/ hydration via PO intake is guarded and MD to consider alternative long-term nutrition/hydration. TRIAL TX: Patient unable to consistently follow verbal cues to multiple swallows , effortful swallow, and/or chin tuck . DAILY ESTIMATED NEEDS: Needs based on Sepsis 54.5kg 25-30 kcals/kg 0231-9955 total kcals 1.25-2 g protein/kg 68-109 g total protein 25-30ml/kcal mL/kg 1612-1324 total fluid mLs NUTRITION DIAGNOSIS: * Increased kcal and pro needs r/t sepsis and wound healing as evidenced by pt adm w/ critically elev WBC, unstageable sacral wound. CURRENT TF:Vital AF 1.2 @ 60ml/hr x 24 hrs ENTERAL NUTRITION RECOMMENDATIONS: Glucerna 1.2 @ 50ml/hr x 24 hrs to provide 1200ml, 1440kcal, 72g pro, 966ml free H2O, - Rec TF change to Glucerna 1.2: elemental formula of Vital is not indicated - Initiate Glucerna 1.2 @ 20ml/hr x 6hrs, advance 10ml q 4-6 hrs as tolerated to goal rate - HOB over 30 degrees - Water flush of 160ml q 6hrs ADDITIONAL RECOMMENDATIONS: 1) Wound healnig: add Vit C 250mg BID + Garth BID via PEG 2) CALIBRATED bedscale wts : w/ added p200 mattress + pump and SCDs 3) Rec bed side BG testing w/ niss for glycemic control 4) Monitor lytes, replete as needed 5) Monitor hydration status: rec adding water flushes (BUN trending up) Findings: Thin liquid barium demonstrated early pooling and delayed pooling in the vallecula and piriform sinuses. Aspiration of thin liquid barium is demonstrated. With ingestion of thin liquid barium, there is early and delayed pooling of contrast. There is deep laryngeal penetration on multiple swallows, and delayed trace aspiration on sequential swallows. With nectar thick liquid barium, there is flash trace penetration to the level of the vocal folds. With honey thick liquid barium and pudding, flash trace penetration to the level of vocal folds is noted. Impression: Positive for trace aspiration of thin liquid barium, penetration multiple substances Sundeep Howard Oct 07, 2019 13:02
--- NOTE | 2019-10-07 13:44 | Cardiac Electrophysiology PN ---
Assessment/Plan Assessment/Plan 1. Sinus bradycardia off any KERR or AVN blockers. Not hypothyroid. 2. Hypertension. Off antihypertensive agents. 3. 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 No surgery now per Dr. Hoawrd. 4. Sepsis and leukocytosis. WBC decreasing on Abx 5. Rule out COVID. 6. Dementia and psychosis. 7. Dysphagia, S/P PEG 8. Awaiting second negative Covid to DC to [facility] DW RN Subjective Subjective Nonverbal in restraints. S/P PEG with feeding ongoing. On Room Air. Awaiting 2nd Covid to DC to [facility] Objective Last 24 Hour Vital Signs Date Time Temp Pulse Resp B/P (MAP) Pulse Ox O2 Delivery O2 Flow Rate FiO2 10/07/19 09:00 Room Air 10/07/19 08:00 98.4 86 21 144/75 (98) 97 10/07/19 04:00 98.1 22 150/68 (95) 96 10/07/19 00:00 99.0 100 24 131/75 (93) 95 10/06/19 21:00 Room Air 10/06/19 20:00 98.6 98 24 137/62 (87) 95 10/06/19 16:00 97.6 96 18 128/76 (93) 99 Intake and Output 10/06/19 10/07/19 19:00 07:00 Intake Total 1020 ml 900 ml Output Total 500 ml Balance 1020 ml 400 ml Intake Free Water 240 ml 180 ml Tube Feeding 780 ml 720 ml Output Urine Total 500 ml Objective HEAD AND NECK: No JVD. LUNGS: Coarse rhonchi. CARDIOVASCULAR: Regular S1, S2 with no gallop. ABDOMEN: Soft.PEG in place EXTREMITIES: No pitting edema. Srinivas Hsieh MD Oct 07, 2019 13:44
[2019-10-07 16:00] VITALS: BP 136/80
[2019-10-07] MEDS: Ascorbic Acid 500mg tab ORAL SCH (17:18)
[2019-10-07 20:00] VITALS: BP 127/59
--- NOTE | 2019-10-07 22:30 | Progress Note ---
DATE: 10/07/2019 SUBJECTIVE: This is elderly female, tolerating tube feeding, awaiting for COVID test. PHYSICAL EXAMINATION: VITAL SIGNS: Blood pressure is 144/75, pulse 86, respirations 21, temperature 98.4. HEENT: NAD. CHEST: Bilateral decreased breath sounds. CARDIOVASCULAR: Regular rhythm. ABDOMEN: Soft. EXTREMITIES: CCE. LABORATORY DATA: White counts are 9.5, hemoglobin 8.8. Chemistry panel, BUN 33 and creatinine 0.9. ASSESSMENT: 1. Sepsis. 2. Anemia. 3. Dysphagia, status post PEG placement. PLAN: Continue current treatment. Continue Zyprexa. Continue Zofran. Sher Carrillo M.D. DR: Matthew JOB#: [id number] CC:
--- NOTE | 2019-10-07 22:55 | Psych Consult Progress Note ---
Psychiatry Progress Note Psychiatry Progress Note Medications Current Medications Medications (Trade) Dose Ordered Sig/Naya Route PRN Reason Start Time Stop Time Status Last Admin Dose Admin Acetaminophen (Tylenol) 650 mg Q6H PRN ORAL For Headache 09/29/19 14:05 10/24/19 14:04 Ascorbic Acid (Vitamin C) 250 mg TWICE A DAY ORAL 10/07/19 18:00 11/06/19 17:59 10/07/19 17:18 Diphenhydramine HCl (Benadryl) 50 mg Q6H PRN IVP Itching 09/29/19 14:05 10/24/19 14:04 Haloperidol Lactate (Haldol) 5 mg Q6H PRN IM Agitation 09/29/19 14:06 11/09/19 14:05 Olanzapine (ZyPREXA) 2.5 mg DAILY ORAL 09/30/19 09:00 11/10/19 08:59 10/07/19 09:30 Olanzapine (ZyPREXA) 5 mg BEDTIME ORAL 09/29/19 21:00 11/10/19 20:59 10/07/19 20:43 Ondansetron HCl (Zofran) 4 mg Q6H PRN IVP Nausea & Vomiting 09/29/19 14:06 10/24/19 14:05 Neurological/Psychiatric: Reports: anxiety, depressed, emotional problems Allergies: Coded Allergies: No Known Allergies (Unverified , 09/23/19) Objective Data Height (Feet): 5 Height (Inches): 1.00 Weight (Pounds): 149 General Appearance: alert, confused, agitated Additional Comments: awake, oriented to dustin Mood is agitated. Affect is flat. Thought process is concrete. Thought content, no suicidal or homicidal ideation. Cognition is impaired. Insight and judgment are impaired. Assessment/Plan Assessment/Plan: ASSESSMENT: [place] I Dementia. Schizophrenia. PLAN: 1. Zyprexa that will stimulate her appetite as well. 2. Bilateral soft restraints. 3. Haldol IM p.r.n. 4. Continue to readjust the medications. John Vanegas MD Oct 07, 2019 22:55
[2019-10-08] VITALS: BP 154/66
[2019-10-08 04:00] VITALS: BP 120/72
[2019-10-08 08:00] VITALS: BP 146/71
[2019-10-08] MEDS: Ascorbic Acid 500mg tab ORAL SCH (09:26)
[2019-10-08] MEDS: OLANZapine 2.5mg tab ORAL SCH (09:26)
--- NOTE | 2019-10-08 10:16 | Infectious Diseases Prog Note ---
Assessment/Plan Assessment/Plan antibiotics ; none A 1. Pneumonia s/p rx COVID-19 test negative x 3 2. Hypertension. 3. Dementia. 4. Renal failure improving 5. leucocytosis resolved P 1. continue off antibiotics Subjective ROS Limited/Unobtainable: Yes Allergies: Coded Allergies: No Known Allergies (Unverified , 09/23/19) Objective Vital Signs Last 24 Hour Vital Signs Date Time Temp Pulse Resp B/P (MAP) Pulse Ox O2 Delivery O2 Flow Rate FiO2 10/08/19 08:00 97.9 95 19 146/71 (96) 96 10/08/19 04:00 98.1 86 22 120/72 (88) 93 10/08/19 00:00 98.2 100 26 154/66 (95) 96 10/07/19 21:00 Room Air 10/07/19 20:00 99.7 110 24 127/59 (81) 95 10/07/19 16:00 98.2 85 20 136/80 (98) 97 10/07/19 12:00 98.3 79 21 140/78 (98) 97 Height (Feet): 5 Height (Inches): 1.00 Weight (Pounds): 149 Respiratory/Chest: lungs clear Cardiovascular: normal rate, regular rhythm, no gallop/murmur Abdomen: soft, non tender, other - GT Extremities: no edema Microbiology Date/Time Source Procedure Growth Status 10/06/19 11:00 Nasopharynx Coronavirus COVID-19 PCR ([facility]) - Final Complete Current Medications Medications (Trade) Dose Ordered Sig/Naya Route PRN Reason Start Time Stop Time Status Last Admin Dose Admin Acetaminophen (Tylenol) 650 mg Q6H PRN ORAL For Headache 09/29/19 14:05 10/24/19 14:04 Ascorbic Acid (Vitamin C) 250 mg TWICE A DAY ORAL 10/07/19 18:00 11/06/19 17:59 10/08/19 09:26 Diphenhydramine HCl (Benadryl) 50 mg Q6H PRN IVP Itching 09/29/19 14:05 10/24/19 14:04 Haloperidol Lactate (Haldol) 5 mg Q6H PRN IM Agitation 09/29/19 14:06 11/09/19 14:05 Olanzapine (ZyPREXA) 2.5 mg DAILY ORAL 09/30/19 09:00 7/5/20 08:59 10/08/19 09:26 Olanzapine (ZyPREXA) 5 mg BEDTIME ORAL 09/29/19 21:00 11/10/19 20:59 10/07/19 20:43 Ondansetron HCl (Zofran) 4 mg Q6H PRN IVP Nausea & Vomiting 09/29/19 14:06 10/24/19 14:05 Mazin Skinner MD Oct 08, 2019 10:16
--- NOTE | 2019-10-08 11:03 | Pulmonology Progress Note ---
Subjective ROS Limited/Unobtainable: Yes Interval Events: None new; labs reviewed Constitutional: Denies: fever HEENT: Repors: no symptoms Respiratory: Reports: no symptoms Cardiovascular: Reports: no symptoms Gastrointestinal/Abdominal: Reports: no symptoms Genitourinary: Reports: no symptoms Neurologic: Reports: no symptoms Allergies: Coded Allergies: No Known Allergies (Unverified , 09/23/19) Objective Last 24 Hour Vital Signs Date Time Temp Pulse Resp B/P (MAP) Pulse Ox O2 Delivery O2 Flow Rate FiO2 10/08/19 08:00 97.9 95 19 146/71 (96) 96 10/08/19 04:00 98.1 86 22 120/72 (88) 93 10/08/19 00:00 98.2 100 26 154/66 (95) 96 10/07/19 21:00 Room Air 10/07/19 20:00 99.7 110 24 127/59 (81) 95 10/07/19 16:00 98.2 85 20 136/80 (98) 97 10/07/19 12:00 98.3 79 21 140/78 (98) 97 Intake and Output 10/07/19 10/08/19 18:59 06:59 Intake Total 840 ml 1120 ml Output Total 300 ml Balance 840 ml 820 ml Intake Free Water 120 ml 400 ml Tube Feeding 720 ml 720 ml Output Urine Total 300 ml # Voids 8 # Bowel Movements 1 General Appearance: no acute distress HEENT: normocephalic Respiratory: chest wall non-tender, lungs clear Cardiovascular: normal peripheral pulses Abdomen: normal bowel sounds Microbiology Date/Time Source Procedure Growth Status 10/06/19 11:00 Nasopharynx Coronavirus COVID-19 PCR ([facility]) - Final Complete Current Medications Medications (Trade) Dose Ordered Sig/Naya Route PRN Reason Start Time Stop Time Status Last Admin Dose Admin Acetaminophen (Tylenol) 650 mg Q6H PRN ORAL For Headache 09/29/19 14:05 10/24/19 14:04 Ascorbic Acid (Vitamin C) 250 mg TWICE A DAY ORAL 10/07/19 18:00 11/06/19 17:59 10/08/19 09:26 Diphenhydramine HCl (Benadryl) 50 mg Q6H PRN IVP Itching 09/29/19 14:05 10/24/19 14:04 Haloperidol Lactate (Haldol) 5 mg Q6H PRN IM Agitation 09/29/19 14:06 11/09/19 14:05 Olanzapine (ZyPREXA) 2.5 mg DAILY ORAL 09/30/19 09:00 11/10/19 08:59 10/08/19 09:26 Olanzapine (ZyPREXA) 5 mg BEDTIME ORAL 09/29/19 21:00 11/10/19 20:59 10/07/19 20:43 Ondansetron HCl (Zofran) 4 mg Q6H PRN IVP Nausea & Vomiting 09/29/19 14:06 10/24/19 14:05 Assessment/Plan Assessment/Plan IMPRESSION: 1. Marked leukocytosis. WBC improved 2. Hypoxemia. On supplemental O2; improved. 3. COPD. 4. halfway resident. 5. Schizophrenia. 6. Dementia. 7. Hypernatremia; better; now normal DISCUSSION: Agree with empiric antibiotics. Do not suspect COVID-19; pcr x 2 is negative Continue current medications and care. I will follow carefully as pulmonary it consultant. Currently saturating well on low flow O2 Hypernatremic; off hypotonic fluids Decreased free water to 250 ml q 6 I will follow Discussed with ID S/P PEG Discussed with GI Neha Beverly Omar Syed MD Oct 08, 2019 11:03
[2019-10-08 12:00] VITALS: BP 142/99
--- NOTE | 2019-10-08 12:05 | General Progress Note ---
Assessment/Plan Assessment/Plan: 1. COPD. 2. Schizophrenia. 3. Bradycardia in this admission. 4. anemia 5. FTT s/p PEG GTF monitor for residuals fu labs Subjective ROS Limited/Unobtainable: No Allergies: Coded Allergies: No Known Allergies (Unverified , 09/23/19) Objective Last 24 Hour Vital Signs Date Time Temp Pulse Resp B/P (MAP) Pulse Ox O2 Delivery O2 Flow Rate FiO2 10/08/19 09:00 Room Air 10/08/19 08:00 97.9 95 19 146/71 (96) 96 10/08/19 04:00 98.1 86 22 120/72 (88) 93 10/08/19 00:00 98.2 100 26 154/66 (95) 96 10/07/19 21:00 Room Air 10/07/19 20:00 99.7 110 24 127/59 (81) 95 10/07/19 16:00 98.2 85 20 136/80 (98) 97 Intake and Output 10/07/19 10/08/19 19:00 07:00 Intake Total 840 ml 1060 ml Output Total 300 ml Balance 840 ml 760 ml Intake Free Water 120 ml 400 ml Tube Feeding 720 ml 660 ml Output Urine Total 300 ml # Voids 8 # Bowel Movements 1 Height (Feet): 5 Height (Inches): 1.00 Weight (Pounds): 149 General Appearance: alert EENT: normal ENT inspection Neck: supple Cardiovascular: normal rate Respiratory/Chest: decreased breath sounds Abdomen: normal bowel sounds, non tender, soft Extremities: non-tender Shiv Rodgers MD Oct 08, 2019 12:05
--- NOTE | 2019-10-08 12:50 | Surgery Progress Note ---
Surgery Progress Note Subjective Additional Comments no acute events comfortable stable tolerating feeds Objective Last 24 Hour Vital Signs Date Time Temp Pulse Resp B/P (MAP) Pulse Ox O2 Delivery O2 Flow Rate FiO2 10/08/19 12:00 98.4 97 18 142/99 (113) 96 10/08/19 09:00 Room Air 10/08/19 08:00 97.9 95 19 146/71 (96) 96 10/08/19 04:00 98.1 86 22 120/72 (88) 93 10/08/19 00:00 98.2 100 26 154/66 (95) 96 10/07/19 21:00 Room Air 10/07/19 20:00 99.7 110 24 127/59 (81) 95 10/07/19 16:00 98.2 85 20 136/80 (98) 97 I&O Intake and Output 10/07/19 10/08/19 19:00 07:00 Intake Total 840 ml 1060 ml Output Total 300 ml Balance 840 ml 760 ml Intake Free Water 120 ml 400 ml Tube Feeding 720 ml 660 ml Output Urine Total 300 ml # Voids 8 # Bowel Movements 1 Dressing: other Wound: other Drains: other Cardiovascular: RSR Respiratory: decreased breath sounds Abdomen: soft, non-tender, present bowel sounds Extremities: no cyanosis Plan Problems: (1) Decubitus skin ulcer Assessment & Plan: Pt presented on admission with Multiple Pressure injuries. Unstageable Sacral Pressure injury(L)9.5cm x (W)11cm. Base of wound is 75% necrotic 25% mixed slough and erythema. Periwound is indurated with non- blanchable erythema. No odor or exudate noted. Additional open wound in close proximity noted to lower R cleft of buttocks. DTPI Noted to R heel and lateral R heel. Base of wound is fluctuant, purple with maroon borders.(L)7.5cm x (W)11cm.Periwound is blanchable but boggy. DTPI L heel and Lateral aspect. Base of wound is maroon and fluctuant. (L)6.5cm x (W)9.5cm. Periwound is blanchable but boggy. DTPI L 1st Metatarsal Head. Base of wound is fluctuant,purple with surrounding maroon borders.(L)2.5cm x (W)1.5cm. Non-blanching erythema without fluctuance noted to R 1st metatarsal head. Tx.Plan: Cleanse Sacral wound with Saline. Apply Therahoney impregnated Kerlix. Apply Moisture Barrier Paste periwound. Cover with Optifoam drsg. Daily and prn. Apply Cavilon Skin Barrier to R and L Heels. Cover each heel with Optifoam drsg.Change every 7 days and prn. Apply Cavilon Skin Barrier to R and L 1st Metatarsals Daily and prn. Reposition at least every 2hoours or as tolerated. Place Pillow between Knees. Off-load heels with Pillow. APM/KEYONA Mattress overlay. (2) Sepsis Assessment & Plan: leukocytosis, abnormal labs low grade fever COVID eval necessary halfway patient respiratory support nutrition Urine with UTI pending micro wounds no gross infection rx as written on abx trend labs will follow with recs improving needs repeat swallow eval cont ng tube feed nutrition for now picc for abx s/p peg d/c plan (3) Suspected 2019 novel coronavirus infection (4) Respiratory distress (5) Failure to thrive Assessment & Plan: Mild to moderate Oropharyngeal dysphagia (Level 4 on the MICHI Dysphagia Outcome Severity Scale) with increased oral prep and oropharyngeal transit times due to sensorimotor deficits compounded by cognitive -behavioral deficits (h/o dementia, lethargic, talks with trials in mouth). HIGH ASPIRATION/PENETRATION RISKS AND REDUCED SWALLOW EFFICIENCY DUE TO THE FOLLOWING COMPONENTS/DEFICITS: Oral Impairment Tongue Control Oral residue Initiation of pharyngeal swallow Pharyngeal Impairment Laryngeal elevation (LE) Anterior hyoid excursion (AHE) Epiglottic movement Late and incomplete Laryngeal vestibular closure Pharyngeal stripping wave Tongue base retraction Pharyngeal residue Decrease pharyngeal sensation THIN LIQUIDS: PAS 6 Flash trace aspiration below the vocal folds, Patient able to clear/ejected with multiple swallows. NECTAR THICK LIQUIDS: PAS 4 Radiographic evidence of flash trace penetration to the level of the vocal folds , cleared with multiple swallows. HONEY THICK & PUDDING THICK: PAS 4 Flash penetration to the level of the vocal folds, cleared with multiple swallows. Mild Esophageal Dysphagia: Noted to have trace esophageal retention with no significant retrograde flow, no obstruction to bolus flow noted. WFL cricopharyngeal opening. -Patient is a high risk for recurrent penetration and/or aspiration due to poor swallow efficiency and sensorimotor deficits. Patient also presenting as a high risk for poor PO intake, as s/p nine PO trials, Patient reports feeling lethargic and requesting to rest. Patient did not present with any significant aspiration or penetration, however , there was radiographic evidence of trace aspiration with recovery with thin liquids, flash trace penetration with recovery with nectar thick liquids, and flash trace penetration with recovery with honey thick and pudding thick liquids. - Patient presenting as a high risk for poor PO intake and recurrent penetration /aspiration with PO given Patient's advanced age, h/o FTT, Dementia, aspiration PNA; Therefore, prognosis for Patient's ability to maintain adequate nutrition/ hydration via PO intake is guarded and MD to consider alternative long-term nutrition/hydration. TRIAL TX: Patient unable to consistently follow verbal cues to multiple swallows , effortful swallow, and/or chin tuck . DAILY ESTIMATED NEEDS: Needs based on Sepsis 54.5kg 25-30 kcals/kg 4770-4331 total kcals 1.25-2 g protein/kg 68-109 g total protein 25-30ml/kcal mL/kg 7342-6293 total fluid mLs NUTRITION DIAGNOSIS: * Increased kcal and pro needs r/t sepsis and wound healing as evidenced by pt adm w/ critically elev WBC, unstageable sacral wound. CURRENT TF:Vital AF 1.2 @ 60ml/hr x 24 hrs ENTERAL NUTRITION RECOMMENDATIONS: Glucerna 1.2 @ 50ml/hr x 24 hrs to provide 1200ml, 1440kcal, 72g pro, 966ml free H2O, - Rec TF change to Glucerna 1.2: elemental formula of Vital is not indicated - Initiate Glucerna 1.2 @ 20ml/hr x 6hrs, advance 10ml q 4-6 hrs as tolerated to goal rate - HOB over 30 degrees - Water flush of 160ml q 6hrs ADDITIONAL RECOMMENDATIONS: 1) Wound healnig: add Vit C 250mg BID + Garth BID via PEG 2) CALIBRATED bedscale wts : w/ added p200 mattress + pump and SCDs 3) Rec bed side BG testing w/ niss for glycemic control 4) Monitor lytes, replete as needed 5) Monitor hydration status: rec adding water flushes (BUN trending up) Findings: Thin liquid barium demonstrated early pooling and delayed pooling in the vallecula and piriform sinuses. Aspiration of thin liquid barium is demonstrated. With ingestion of thin liquid barium, there is early and delayed pooling of contrast. There is deep laryngeal penetration on multiple swallows, and delayed trace aspiration on sequential swallows. With nectar thick liquid barium, there is flash trace penetration to the level of the vocal folds. With honey thick liquid barium and pudding, flash trace penetration to the level of vocal folds is noted. Impression: Positive for trace aspiration of thin liquid barium, penetration multiple substances Sundeep Howard Oct 08, 2019 12:50
--- NOTE | 2019-10-08 13:00 | Cardiac Electrophysiology PN ---
Assessment/Plan Assessment/Plan 1. Sinus bradycardia off any KERR or AVN blockers. Not hypothyroid. 2. Hypertension. Off antihypertensive agents. 3. 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 No surgery now per Dr. Howard. 4. Sepsis and leukocytosis. WBC decreasing on Abx 5. Rule out COVID. 6. Dementia and psychosis. 7. Dysphagia, S/P PEG 8. Awaiting second negative Covid to DC to [facility] DW RN Subjective Subjective Nonverbal in restraints. PEG feeding ongoing. On Room Air. Awaiting 2nd Covid to DC to [facility] Objective Last 24 Hour Vital Signs Date Time Temp Pulse Resp B/P (MAP) Pulse Ox O2 Delivery O2 Flow Rate FiO2 10/08/19 12:00 98.4 97 18 142/99 (113) 96 10/08/19 09:00 Room Air 10/08/19 08:00 97.9 95 19 146/71 (96) 96 10/08/19 04:00 98.1 86 22 120/72 (88) 93 10/08/19 00:00 98.2 100 26 154/66 (95) 96 10/07/19 21:00 Room Air 10/07/19 20:00 99.7 110 24 127/59 (81) 95 10/07/19 16:00 98.2 85 20 136/80 (98) 97 Intake and Output 10/07/19 10/08/19 19:00 07:00 Intake Total 840 ml 1060 ml Output Total 300 ml Balance 840 ml 760 ml Intake Free Water 120 ml 400 ml Tube Feeding 720 ml 660 ml Output Urine Total 300 ml # Voids 8 # Bowel Movements 1 Microbiology Date/Time Source Procedure Growth Status 10/06/19 11:00 Nasopharynx Coronavirus COVID-19 PCR ([facility]) - Final Complete Objective HEAD AND NECK: No JVD. LUNGS: Coarse rhonchi. CARDIOVASCULAR: Regular S1, S2 with no gallop. ABDOMEN: Soft.PEG in place EXTREMITIES: No pitting edema. Srinivas Hsieh MD Oct 08, 2019 13:00
[2019-10-08] MEDS ORDERED: NS 275ml ONE (16:24)
--- NOTE | 2019-10-08 19:30 | Progress Note ---
DATE: 10/08/2019 SUBJECTIVE: This is an 89-year-old female currently in bed, more awake, comfortable, doing better. PHYSICAL EXAMINATION: VITAL SIGNS: Blood pressure 146/71, pulse 95 and temperature 97.9. HEENT: NAD. CHEST: Bilaterally clear. CARDIOVASCULAR: Regular rhythm. ABDOMEN: Soft. EXTREMITIES: CCE. ASSESSMENT: 1. Dysphagia. 2. Failure to thrive. 3. Dementia. PLAN: The patient COVID test is negative. DC plan to SNF. Continue current psychotherapy. Sher Carrillo M.D. DR: Matthew JOB#: [id number] CC:
--- NOTE | 2019-10-09 02:15 | Progress Note ---
DATE: 10/08/2019 SUBJECTIVE: The patient is in bed. No acute issues noted. Had episodes of agitation, confused, and disoriented. MENTAL STATUS EXAMINATION: The patient is disoriented. Mood is neutral. Affect is flat. Thought process is concrete. Thought content, no suicidal or homicidal ideation. Cognition is impaired. Insight and judgement is impaired. ASSESSMENT: Stable. PLAN: Continue current medications. John Vanegas M.D. DR: IGOR JOB#: [id number] CC:
== END 2019-10-08 16:25 | DRG 871 ==
LOC: EDBD 14:17 → EMR 14:55 → 2E 15:00 → EDBEDREQ 16:21 → 2E 09-26 22:39 → 4E 09-29 13:15
PROC: 0DH63UZ Insertion of Feeding Device into Stomach, Percutaneous Approach (ICD-10-PCS; principal; 2019-10-04 08:50)
DX: A41.9 Sepsis, unspecified organism (principal); R65.21 Severe sepsis with septic shock; J69.0 Pneumonitis due to inhalation of food and vomit; E43 Unspecified severe protein-calorie malnutrition; J96.01 Acute respiratory failure with hypoxia; N17.9 Acute kidney failure, unspecified; F03.91 Unspecified dementia, unspecified severity, with behavioral disturbance; G93.40 Encephalopathy, unspecified; E87.0 Hyperosmolality and hypernatremia; L89.150 Pressure ulcer of sacral region, unstageable; L89.626 Pressure-induced deep tissue damage of left heel; L89.616 Pressure-induced deep tissue damage of right heel; L89.896 Pressure-induced deep tissue damage of other site; E86.0 Dehydration; R62.7 Adult failure to thrive; J44.9 Chronic obstructive pulmonary disease, unspecified; F41.9 Anxiety disorder, unspecified; F20.9 Schizophrenia, unspecified; R00.1 Bradycardia, unspecified; R13.10 Dysphagia, unspecified; B95.62 Methicillin resistant Staphylococcus aureus infection as the cause of diseases classified elsewhere; F29 Unspecified psychosis not due to a substance or known physiological condition
CPT/HCPCS: 36415; 36600; 71045; 74018; 74230; 80048; 80053; 80202; 81001; 81003; 82270; 82550; 82553; 82607; 82746; 82803; 83540; 83550; 83605; 83690; 83735; 83880; 84100; 84439; 84443; 84484; 85007; 85025; 85610; 85651; 86140; 87040; 87081; 87086; 87635; 93005; 93306; 94003; 94150; 96365; 96368; 99285; J7030